=== PATIENT | female | born 1975 | race Caucasian/White ===

== ENCOUNTER → 2017-10-18 | Outpatient (CLI) | payer OTHER ==
--- NOTE | 2017-10-19 09:41 | USB ---
Reason for exam: clinical finding. History: Family history of breast cancer in maternal grandmother. Took hormonal contraceptives for 2 years. Indicated problem(s): palpable abnormality and pain in the left breast. Physical Findings: Nurse Summary: 2 x 2cm lump in the left breast at 2 o'clock (nurse cw). US Breast LT Left breast ultrasound includes all four quadrants, the retroareolar region and axilla. Finding demonstrates a 1.9 x 1.1 x 1.9cm oval, mixed lesion at 2 o'clock. This is echogenic with central cystic component. The patient reports noticing this 2 weeks ago. There is associated bruising and the visible swelling has decreased per the patient. This is suspected to represent a hematoma. These results were verbally communicated with the patient and result sheet given to the patient on 10/18/17. ASSESSMENT: Incomplete: need additional imaging evaluation, BI-RAD 0 RECOMMENDATION: Special view mammogram of both breasts.
--- NOTE | 2017-10-19 09:46 | MM ---
Reason for exam: clinical finding. Baseline mammogram. History: Family history of breast cancer in maternal grandmother. Took hormonal contraceptives for 2 years. Indicated problem(s): palpable abnormality in the left breast. [facility] Diagnostic Mammo w CAD KIESHA Bilateral CC and MLO view(s) were taken. LM, CC with magnification, and LM with magnification view(s) were taken of the left breast. The breast tissue is heterogeneously dense. This may lower the sensitivity of mammography. 1.6 heterogeneous density mass upper outer quadrant at the palpable site should be reassessed in 3 months as a hematoma is suspected. Lateral views confirms loosely grouped calcifications upper outer quadrant that project on top of each other on the CC view. These results were verbally communicated with the patient and result sheet given to the patient on 10/18/17. ASSESSMENT: Probably benign, BI-RAD 3 RECOMMENDATION: Follow-up diagnostic mammogram and ultrasound of the left breast in 3 months.
== END | disposition home or self-care (01) ==
LOC: RADUSWWP 08:51
PROVIDERS: ATTEND Family Medicine
DX: R92.8 Other abnormal and inconclusive findings on diagnostic imaging of breast (principal)
CPT/HCPCS: 77066

== ENCOUNTER 2019-05-21 12:28 | Inpatient (IN) | payer OTHER ==
[2019-05-21] MEDS ORDERED: THIAMINE 100 MG/ML 2 ML VIAL IM STA (13:16)
[2019-05-21] MEDS ORDERED: SODIUM CHLORIDE 0.9% 500 ML 500 ML IV STA (13:16)
[2019-05-21] MEDS ORDERED: LORazepam 2 MG/ML INJ IV STA (13:16)
[2019-05-21] MEDS ORDERED: LORazepam 2 MG/ML INJ IV PRN (13:16)
[2019-05-21] MEDS ORDERED: SODIUM CHLORIDE 0.9% 1,000 ML IV STA ×2 (13:16)
[2019-05-21] MEDS ORDERED: ONDANSETRON 4 MG/2 ML VIAL IVP STA (13:18)
[2019-05-21] MEDS ORDERED: PANTOPRAZOLE 40 MG/10 ML VIAL IVP STA (13:18)
[2019-05-21] MEDS ORDERED: ONDANSETRON 4 MG/2 ML VIAL IVP PRN (13:18)
--- NOTE | 2019-05-21 13:20 | ED ---
Alcohol HPI - General Chief Complaint: Alcohol Stated Complaint: Alcohol withdrawal Time Seen by Provider: 05/21/19 13:02 Source: patient, family, RN notes reviewed, old records reviewed Mode of arrival: wheelchair Limitations: no limitations - History of Present Illness Initial Comments: This is a 43-year-old female the ER for evaluation. Patient resents today for evaluation regarding tremors concern for alcohol withdrawal turning yellow. Patient starting 2 days ago as her skin she noticed was turning yellow. Patient is not stop shaking for a long period of time and a long time. Denies any nausea vomiting denies any chest pain or shortness of breath. No abdominal pain. Last drink was earlier today. MD Complaint: alcohol intoxication, alcohol withdrawal, alcohol dependence Last Drink: just [employer] -: days(s) Previous Visits for Alcohol Intoxication?: No Recent Trauma: No Associated Symptoms: nausea, diaphoresis, tremors Treatments Prior to Arrival: none Chronic Alcohol Use: Yes - Related Data Home Medications Medication Instructions Recorded Confirmed No Known Home Medications 05/21/19 05/21/19 Allergies Allergy/AdvReac Type Severity Reaction Status Date / Time No Known Allergies Allergy Verified 05/21/19 13:29 Review of Systems ROS Statement: Those systems with pertinent positive or pertinent negative responses have been documented in the HPI. ROS Other: All systems not noted in ROS Statement are negative. Past Medical History Past Medical History: Pneumonia Additional Past Medical History / Comment(s): kidney stones History of Any Multi-Drug Resistant Organisms: None Reported Past Surgical History: Tubal Ligation Past Psychological History: Depression Smoking Status: Current every day smoker Past Alcohol Use History: Abuse, Daily, Heavy Past Drug Use History: None Reported General Exam - General Exam Comments Initial Comments: Significant for body tremors Limitations: no limitations General appearance: alert, anxious, in distress Head exam: Present: atraumatic, normocephalic, normal inspection Eye exam: Present: normal appearance, PERRL, EOMI. Absent: scleral icterus, conjunctival injection, periorbital swelling ENT exam: Present: normal exam, normal oropharynx, mucous membranes dry Neck exam: Present: normal inspection. Absent: tenderness, meningismus, lymphadenopathy Respiratory exam: Present: normal lung sounds bilaterally. Absent: respiratory distress, wheezes, rales, rhonchi, stridor Cardiovascular Exam: Present: normal rhythm, tachycardia, normal heart sounds. Absent: systolic murmur, diastolic murmur, rubs, gallop, clicks GI/Abdominal exam: Present: soft, normal bowel sounds. Absent: distended, tenderness, guarding, rebound, rigid Extremities exam: Present: normal inspection, full ROM, normal capillary refill. Absent: tenderness, pedal edema, joint swelling, calf tenderness Back exam: Present: normal inspection Neurological exam: Present: alert, oriented X3, CN II-XII intact Psychiatric exam: Present: normal affect, normal mood Skin exam: Present: warm, dry, intact, normal color. Absent: rash Course Vital Signs 05/21/19 12:50 Temperature 97.9 F Pulse Rate 90 Respiratory 18 Rate Blood Pressure 162/69 O2 Sat by Pulse 98 Oximetry - Reevaluation(s) Reevaluation #1: 05/21/19 14:27 Medical records reviewed Reevaluation #2: 05/21/19 14:27 Patient is improved with Ativan Medical Decision Making - Medical Decision Making 33 female the ER for evaluation of alcohol withdrawal DTs hyperbilirubinemia bilirubin of 11, multiple electrode arrangements. We will admit for evaluation treatment - Lab Data Result diagrams: 05/21/19 13:31 05/21/19 13:31 Lab Results 05/21/19 05/21/19 05/21/19 Range/Units 13:31 13:31 13:31 WBC 4.7 (3.8-10.6) k/uL RBC 2.77 L (3.80-5.40) m/uL Hgb 8.8 L (11.4-16.0) gm/dL Hct 27.9 L (34.0-46.0) % MCV 100.4 H (80.0-100.0) fL MCH 31.9 (25.0-35.0) pg MCHC 31.7 (31.0-37.0) g/dL RDW 19.0 H (11.5-15.5) % Plt Count 39 L (150-450) k/uL Neutrophils % 67 % Lymphocytes % 20 % Monocytes % 6 % Eosinophils % 4 % Basophils % 1 % Neutrophils # 3.1 (1.3-7.7) k/uL Lymphocytes # 0.9 L (1.0-4.8) k/uL Monocytes # 0.3 (0-1.0) k/uL Eosinophils # 0.2 (0-0.7) k/uL Basophils # 0.0 (0-0.2) k/uL Differential Comment Manual Slide Review Performed Hypochromasia Marked Poikilocytosis (manual Present Anisocytosis Slight Macrocytosis Slight Fragmented RBCs Present PT 15.0 H (9.0-12.0) sec INR 1.5 H (<1.2) Sodium 139 (137-145) mmol/L Potassium 3.2 L (3.5-5.1) mmol/L Chloride 103 (98-107) mmol/L Carbon Dioxide 24 (22-30) mmol/L Anion Gap 12 mmol/L BUN 6 L (7-17) mg/dL Creatinine 0.44 L (0.52-1.04) mg/dL Est GFR (CKD-EPI)AfAm >90 (>60 ml/min/1.73 sqM) Est GFR (CKD-EPI)NonAf >90 (>60 ml/min/1.73 sqM) Glucose 115 H (74-99) mg/dL Calcium 8.4 (8.4-10.2) mg/dL Phosphorus 3.5 (2.5-4.5) mg/dL Magnesium 1.2 L (1.6-2.3) mg/dL Total Bilirubin 11.0 H (0.2-1.3) mg/dL AST 177 H (14-36) U/L ALT 51 (9-52) U/L Alkaline Phosphatase 238 H (38-126) U/L Total Protein 6.9 (6.3-8.2) g/dL Albumin 3.5 (3.5-5.0) g/dL Lipase 246 (23-300) U/L Serum Alcohol <10 mg/dL Disposition Clinical Impression: Alcohol withdrawal syndrome, Alcoholic intoxication, Alcohol withdrawal delirium, Hypomagnesemia, Hypokalemia, Cirrhosis, Hyperbilirubinemia Disposition: ADMITTED IP TO THIS HOSP Condition: Serious Is patient prescribed a controlled substance at d/c from ED?: No Referrals: Kevin Gordon MD [Primary Care Provider] - 1-2 days
[2019-05-21 13:49] LABS: Anisocytosis Slight; Basophils % (A) 1 %; Eosinophils # (A) 0.2 k/uL (0-0.7); Eosinophils % (A) 4 %; HCT 27.9 % (34.0-46.0); HGB 8.8 gm/dL (11.4-16.0); Hypochromasia Marked; Lymphocytes # (A) 0.9 k/uL (1.0-4.8); Lymphocytes % (A) 20 %; MCH 31.9 pg (25.0-35.0); MCHC 31.7 g/dL (31.0-37.0); MCV 100.4 fL (80.0-100.0); Macrocytosis Slight; Mean Platelet Volume 10.5; Monocytes # (A) 0.3 k/uL (0-1.0); Monocytes % (A) 6 %; Neutrophils # (A) 3.1 k/uL (1.3-7.7); Neutrophils % (A) 67 %; RBC 2.77 m/uL (3.80-5.40); WBC 4.7 k/uL (3.8-10.6)
[2019-05-21 14:01] LABS: INR 1.5 (<1.2)
[2019-05-21 14:07] LABS: ALT 51 U/L (9-52); AST 177 U/L (14-36); African American GFR (CKD) >90 (>60 ml/min/1.73 sqM); Albumin 3.5 g/dL (3.5-5.0); Alcohol <10 mg/dL; Alkaline Phosphatase 238 U/L (38-126); Anion Gap 12 mmol/L; Blood Urea Nitrogen 6 mg/dL (7-17); Calcium 8.4 mg/dL (8.4-10.2); Carbon Dioxide 24 mmol/L (22-30); Chloride 103 mmol/L (98-107); Glucose 115 mg/dL (74-99); Magnesium 1.2 mg/dL (1.6-2.3); Phosphorus 3.5 mg/dL (2.5-4.5); Potassium 3.2 mmol/L (3.5-5.1); Sodium 139 mmol/L (137-145); Total Protein 6.9 g/dL (6.3-8.2)
[2019-05-21 14:11] LABS: Platelet Count 39 k/uL (150-450); Poikilocytosis (M) Present; RBC Fragments Present
[2019-05-21] MEDS ORDERED: SODIUM CHLORIDE 0.9% 1,000 ML IV ONE (14:25)
[2019-05-21] MEDS: LORazepam 2 MG/ML INJ IV PRN ×4 (14:49→21:49)
[2019-05-21 15:25] LABS: Amorphous Sediment,Urine Rare /hpf; Appearance,Urine Cloudy (Clear); Bilirubin,Urine 1+ (Negative); Blood,Urine Large (Negative); Color,Urine Dark Brown; Glucose,Urine (UA) Negative (Negative); Ketones,Urine 1+ (Negative); Leukocyte Esterase,Urine Small (Negative); Mucus,Urine Moderate /hpf; Nitrite,Urine Negative (Negative); Protein,Urine 2+ (Negative); RBC,Urine 87 /hpf (0-5); Specific Gravity,Urine 1.019 (1.001-1.035); Squamous Epithelial Cell,Urine 7 /hpf (0-4); WBC,Urine 15 /hpf (0-5)
[2019-05-21 15:31] LABS: Amphetamine Screen,Urine Not Detected (NotDetected); Barbiturate Screen,Urine Not Detected (NotDetected); Benzodiazepines Screen,Urine Detected (NotDetected); Cocaine Screen,Urine Not Detected (NotDetected); Methadone Screen, Urine Not Detected (NotDetected); Opiate Screen,Urine Not Detected (NotDetected); Oxycodone Screen, Urine Not Detected (NotDetected); Phencyclidine Screen,Urine Not Detected (NotDetected); Tricyclic Antidepressant,Urine Not Detected (NotDetected); Urn Cannabinoid Scrn Not Detected (NotDetected)
[2019-05-21] MEDS: THIAMINE 100 MG TAB PO SCH (19:33)
[2019-05-21] MEDS: NICOTINE 21MG/24HR PATCH TRANSDERM SCH (19:34)
[2019-05-21] MEDS ORDERED: Potassium Replacement Protocol 1 EACH MISC MISCELLANE PRN (20:13)
[2019-05-21] MEDS: PERMETHRIN 5% CREAM 60 GM TUBE TOPICAL SCH (21:12)
[2019-05-21] MEDS: POTASSIUM CHLORIDE ER 20 MEQ TAB.ER PO SCH ×2 (21:12→23:03)
[2019-05-21] MEDS: CLOBETASOL PROP 0.05% CR 15GM TOPICAL SCH (21:12)
[2019-05-21] MEDS: MAGNESIUM SULFATE-D5W PMX 1 GM in DEXTROSE/WATER 1 100ML.BAG IVPB SCH ×2 (21:49→23:04)
--- NOTE | 2019-05-21 22:09 | HP ---
HISTORY AND PHYSICAL This is a 43-year-old female admitted for severe tremors due to alcohol withdrawal and jaundice worsening. She has been drinking alcohol for 20 years, about a pint a day of heavy whiskey. She has been taking high doses of Benadryl at home, 5 times a day, for severe pruritus. She is coming in for turning yellow, was seen in the office 2 days ago. Her bilirubin was fine; currently it is up to 11. No nausea, vomiting, shortness of breath, abdominal distention. She drank alcohol earlier today. She was recently given for alcohol withdrawal at home but continued to drink. The patient is going through severe alcohol withdrawal at this point. She states she had a liver biopsy sometime in the past, about a year or two ago; has not followed up in a year. MEDICINES: Negative except for recent Librium which she recently filled. ALLERGIES: Negative. REVIEW OF SYSTEMS: Fourteen-point review of systems negative except for mentioned in HPI. PAST MEDICAL HISTORY: 1. Pneumonia. 2. Kidney stones. 3. Tubal ligation. 4. History of depression. 5. Current everyday smoker. 6. Heavy alcohol abuse. PHYSICAL EXAMINATION: Vital signs reviewed. Temperature 97.9, pulse 85 to 90, respiratory rate 22, blood pressure 162/69, oxygen 98% on room air. NEUROLOGIC: Large amount of tremors in extremities, arms and legs. PSYCH: Fair mood and affect. CARDIOVASCULAR: S1, S2. LUNGS: Clear. GI: Distended. Obesity. Possible fluid wave. Normal bowel sounds. INTEGUMENT: Red rash on her lower right leg, for which she recently took some cortisone cream just in the last 2 days. ASSESSMENT: 1. Alcohol withdrawal syndrome. 2. Liver failure. 3. Hyperbilirubinemia of severe nature. 4. Pruritus secondary to elevated liver enzymes. 5. Elevated INR secondary to liver failure. 6. Severe anemia; unclear etiology; possibly secondary to alcohol. 7. Thrombocytopenia secondary to alcohol abuse. Await GI consultation. 8. Hypomagnesemia. Replace magnesium. 9. Alcohol withdrawal and alcohol severe tremors. CIWA protocol will be continued. 10.Elevated liver enzymes secondary to liver failure and cirrhosis. 11.Alcohol intoxication, alcohol withdrawal, delirium, alcohol withdrawal symptoms. 12.Hypokalemia. 13.Cirrhosis. Please see further orders. MMODL / IJN: [id number] /
[2019-05-22] MEDS: PANTOPRAZOLE 40 MG/10 ML VIAL IVP SCH (08:01)
[2019-05-22] MEDS: NICOTINE 21MG/24HR PATCH TRANSDERM SCH (08:01)
[2019-05-22] MEDS: predniSONE 5 MG TAB PO SCH (08:01)
[2019-05-22] MEDS: predniSONE 1 MG TAB PO SCH (08:01)
[2019-05-22] MEDS: MULTIVITAMINS, THERA 1 EACH TAB PO SCH (08:01)
[2019-05-22] MEDS: THIAMINE 100 MG TAB PO SCH ×2 (08:01→16:52)
[2019-05-22] MEDS: LORazepam 2 MG/ML INJ IV PRN ×3 (08:04→18:33)
[2019-05-22] MEDS: CLOBETASOL PROP 0.05% CR 15GM TOPICAL SCH ×3 (08:10→21:50)
[2019-05-22] MEDS: PERMETHRIN 5% CREAM 60 GM TUBE TOPICAL SCH ×3 (08:10→21:50)
[2019-05-22 08:14] LABS: Anisocytosis Slight; Basophils % (A) 1 %; Eosinophils # (A) 0.2 k/uL (0-0.7); Eosinophils % (A) 5 %; HCT 24.5 % (34.0-46.0); HGB 7.6 gm/dL (11.4-16.0); Hypochromasia Marked; Lymphocytes # (A) 1.5 k/uL (1.0-4.8); Lymphocytes % (A) 31 %; MCHC 31.2 g/dL (31.0-37.0); MCV 102.7 fL (80.0-100.0); Macrocytosis Moderate; Mean Platelet Volume 10.1; Monocytes # (A) 0.3 k/uL (0-1.0); Monocytes % (A) 6 %; Neutrophils # (A) 2.7 k/uL (1.3-7.7); Neutrophils % (A) 55 %; RBC 2.39 m/uL (3.80-5.40); RDW 18.9 % (11.5-15.5); WBC 4.9 k/uL (3.8-10.6)
[2019-05-22 08:18] LABS: Platelet Count 41 k/uL (150-450)
[2019-05-22 08:27] LABS: ALT 47 U/L (9-52); AST 128 U/L (14-36); African American GFR (CKD) >90 (>60 ml/min/1.73 sqM); Albumin 2.7 g/dL (3.5-5.0); Alkaline Phosphatase 164 U/L (38-126); Anion Gap 5 mmol/L; Blood Urea Nitrogen 6 mg/dL (7-17); Calcium 7.6 mg/dL (8.4-10.2); Carbon Dioxide 24 mmol/L (22-30); Chloride 108 mmol/L (98-107); Glucose 96 mg/dL (74-99); Magnesium 1.8 mg/dL (1.6-2.3); Sodium 137 mmol/L (137-145); Total Bilirubin 9.2 mg/dL (0.2-1.3); Total Protein 5.7 g/dL (6.3-8.2)
[2019-05-22] MEDS ORDERED: ENOXAPARIN 40 MG/0.4 ML SYRINGE SQ SCH (09:00)
[2019-05-22 10:02] LABS: INR 1.6 (<1.2); Prothrombin Time 16.1 sec (9.0-12.0)
[2019-05-22] MEDS ORDERED: PHYTONADIONE 5 MG in SODIUM CHLORIDE 0.9% 50 ML IVPB STA (13:34)
--- NOTE | 2019-05-22 13:40 | US ---
EXAMINATION TYPE: US abdomen complete DATE OF EXAM: 05/22/2019 COMPARISON: NONE CLINICAL HISTORY: cirrhosis/liver failure. cirrhosis, liver failure EXAM MEASUREMENTS: Liver Length: 14.9 cm Gallbladder Wall: 0.3 cm CBD: 0.6 cm Spleen: 12.3 cm Right Kidney: 13.2 x 4.1 x 5.6 cm Left Kidney: 12.0 x 5.6 x 5.5 cm Pancreas: Tail obscured by overlying bowel gas Liver: portal vein appears hepatopetal Gallbladder: no evidence of stones Evidence for sonographic Strauss's sign: no CBD: appears wnl Spleen: wnl Right Kidney: enlarged, no evidence of hydronephrosis Left Kidney: no evidence of hydronephrosis , There is some lobation. Column of Giovani may be present. Upper IVC: wnl Abd Aorta: wnl IMPRESSION: 1. No suspicious acute abdomen ultrasound abnormality
--- NOTE | 2019-05-22 13:51 | P.PN ---
Subjective Progress Note Date: 05/22/19 This is a 43-year-old female admitted with alcohol withdrawal, DTs, liver failure and multiple other medical issues. Maintained on gentle IV fluid hydration. CIWA scale 11, continues on CIWA protocol. Tremors present. Nurse reports patient is currently a 2 person assist upon standing. Diet intake poor .Vital signs stable, maintaining O2 sats in the 90s on room air. Afebrile, normal WBC. T bili decreased to 9.2, LFTs improving, INR 1.6, ammonia increasing up 51. Lactulose initiated. GI and psych consults in place with recommendations pending. Abdominal ultrasound completed with results pending. Objective - Vital Signs Vital signs: Vital Signs Temp 98.5 F 05/22/19 12:05 Pulse 84 05/22/19 12:05 Resp 16 05/22/19 12:05 BP 129/70 05/22/19 12:05 Pulse Ox 93 L 05/22/19 12:05 Intake & Output 05/21/19 05/22/19 05/22/19 18:59 06:59 18:59 Intake Total 1880 Balance 1880 Weight 75.75 kg Intake: Intake, IV Titration 1400 Amount Magnesium Sulfate-D5w Pmx 200 1 gm In Dextrose/Water 1 100ml.bag @ 100 mls/hr IVPB Q1H NEHEMIAS Rx#: [id number] Sodium Chloride 0.9% 1, 1200 000 ml @ 100 mls/hr IV . Q10H ONE Rx#:[id number] Oral 480 Other: Voiding Method Toilet Bedside Commode Bedside Commode # Voids 3 - Exam PHYSICAL EXAM: VITAL SIGNS: [As above] GENERAL: Lying in bed, no acute distress HEENT: Conjunctivae normal. eyes normal. NECK: No JVD. No thyroid enlargement. No LNs CARDIOVASCULAR: S1, S2 regular.. No murmur RESPIRATION: Breath sounds diminished in the bases. No rhonchi or crackles. No bronchial breathing. ABDOMEN: Soft, distended, possible ascites, nontender . No guarding. no masses palpable.Bowel sounds heard. LEGS: No edema. no swelling PSYCHIATRY: Alert and oriented X3, mood and affect normal. NERVOUS SYSTEM: Cranial N 2-12 grossly normal. Moves all 4 limbs. Diffuse weakness No focal deficits. Tremors present in her arms and legs Skin: no lesions, lower right leg rash improving Lymphatic system. No LN neck axilla or groin. - Labs CBC & Chem 7: 05/22/19 07:44 05/22/19 07:44 Labs: Abnormal Lab Results - Last 24 Hours (Table) 05/21/19 05/21/19 05/21/19 Range/Units 13:31 13:31 13:31 RBC 2.77 L (3.80-5.40) m/uL Hgb 8.8 L (11.4-16.0) gm/dL Hct 27.9 L (34.0-46.0) % MCV 100.4 H (80.0-100.0) fL RDW 19.0 H (11.5-15.5) % Plt Count 39 L (150-450) k/uL Lymphocytes # 0.9 L (1.0-4.8) k/uL PT 15.0 H (9.0-12.0) sec INR 1.5 H (<1.2) Potassium 3.2 L (3.5-5.1) mmol/L Chloride (98-107) mmol/L BUN 6 L (7-17) mg/dL Creatinine 0.44 L (0.52-1.04) mg/dL Glucose 115 H (74-99) mg/dL Calcium (8.4-10.2) mg/dL Magnesium 1.2 L (1.6-2.3) mg/dL Total Bilirubin 11.0 H (0.2-1.3) mg/dL AST 177 H (14-36) U/L Alkaline Phosphatase 238 H (38-126) U/L Ammonia (<30) umol/L Total Protein (6.3-8.2) g/dL Albumin (3.5-5.0) g/dL Urine Appearance (Clear) Urine Protein (Negative) Urine Ketones (Negative) Urine Blood (Negative) Urine Bilirubin (Negative) Ur Leukocyte Esterase (Negative) Urine RBC (0-5) /hpf Urine WBC (0-5) /hpf Ur Squamous Epith Cells (0-4) /hpf Amorphous Sediment (None) /hpf Urine Mucus (None) /hpf U Benzodiazepines Scrn (NotDetected) 05/21/19 05/22/19 05/22/19 Range/Units 15:15 07:44 07:44 RBC 2.39 L (3.80-5.40) m/uL Hgb 7.6 L (11.4-16.0) gm/dL Hct 24.5 L (34.0-46.0) % MCV 102.7 H (80.0-100.0) fL RDW 18.9 H (11.5-15.5) % Plt Count 41 L (150-450) k/uL Lymphocytes # (1.0-4.8) k/uL PT (9.0-12.0) sec INR (<1.2) Potassium (3.5-5.1) mmol/L Chloride 108 H (98-107) mmol/L BUN 6 L (7-17) mg/dL Creatinine 0.45 L (0.52-1.04) mg/dL Glucose (74-99) mg/dL Calcium 7.6 L (8.4-10.2) mg/dL Magnesium (1.6-2.3) mg/dL Total Bilirubin 9.2 H (0.2-1.3) mg/dL AST 128 H (14-36) U/L Alkaline Phosphatase 164 H (38-126) U/L Ammonia (<30) umol/L Total Protein 5.7 L (6.3-8.2) g/dL Albumin 2.7 L (3.5-5.0) g/dL Urine Appearance Cloudy H (Clear) Urine Protein 2+ H (Negative) Urine Ketones 1+ H (Negative) Urine Blood Large H (Negative) Urine Bilirubin 1+ H (Negative) Ur Leukocyte Esterase Small H (Negative) Urine RBC 87 H (0-5) /hpf Urine WBC 15 H (0-5) /hpf Ur Squamous Epith Cells 7 H (0-4) /hpf Amorphous Sediment Rare H (None) /hpf Urine Mucus Moderate H (None) /hpf U Benzodiazepines Scrn Detected H (NotDetected) 05/22/19 05/22/19 Range/Units 09:50 09:50 RBC (3.80-5.40) m/uL Hgb (11.4-16.0) gm/dL Hct (34.0-46.0) % MCV (80.0-100.0) fL RDW (11.5-15.5) % Plt Count (150-450) k/uL Lymphocytes # (1.0-4.8) k/uL PT 16.1 H (9.0-12.0) sec INR 1.6 H (<1.2) Potassium (3.5-5.1) mmol/L Chloride (98-107) mmol/L BUN (7-17) mg/dL Creatinine (0.52-1.04) mg/dL Glucose (74-99) mg/dL Calcium (8.4-10.2) mg/dL Magnesium (1.6-2.3) mg/dL Total Bilirubin (0.2-1.3) mg/dL AST (14-36) U/L Alkaline Phosphatase (38-126) U/L Ammonia 51 H (<30) umol/L Total Protein (6.3-8.2) g/dL Albumin (3.5-5.0) g/dL Urine Appearance (Clear) Urine Protein (Negative) Urine Ketones (Negative) Urine Blood (Negative) Urine Bilirubin (Negative) Ur Leukocyte Esterase (Negative) Urine RBC (0-5) /hpf Urine WBC (0-5) /hpf Ur Squamous Epith Cells (0-4) /hpf Amorphous Sediment (None) /hpf Urine Mucus (None) /hpf U Benzodiazepines Scrn (NotDetected) Assessment and Plan Assessment: -Acute alcohol withdrawal syndrome with active DTs, in a patient with alcohol dependence. -Liver failure, cirrhosis -Elevated LFTs, T bili secondary to above -HyperCoagulopathy secondary to the above -Anemia, possibly of chronic disease, secondary to the above -Severe hyperbilirubinemia -Pruritus secondary to elevated LFTs -Thrombocytopenia secondary to alcohol abuse -Hyperammonemia secondary to alcohol abuse -Obesity, BMI 20.6 -Nicotine dependence Plan: Continue current medication regime ,monitoring and symptomatic treatment. Maintain IV fluid hydration. Ensure supplements ordered. Continue on CIWA protocol. Close monitoring of ammonia levels, lactulose initiated. Close monitoring of LFTs, T bili, electrolytes, coags, with repeat labs ordered for a.m. GI ,psych, hematology consult in place, recommendations pending. Abdominal ultrasound results pending. PT/OT. Further recommendations to follow. The impression and plan of care has been dictated as directed. : I performed a history and examination of this patient, discussed the same with the dictator. I agree with the dictator's note ,documented as a scribe. Any additional findings or plans will be noted.
[2019-05-22] MEDS: SODIUM CHLORIDE 0.9% 1,000 ML IV SCH (14:39)
[2019-05-22] MEDS: LACTULOSE 20 GM/30 ML CUP PO SCH ×3 (14:39→21:50)
--- NOTE | 2019-05-22 14:53 | P.CN ---
Psychiatric Consult - . Consult date: 05/22/19 Consult:: 05/22/19 14:36 IDENTIFYING DATA: This patient is a 43-year-old female who lives at home with her and 4 kids, currently unemployed. HISTORY OF PRESENT ILLNESS: The patient was admitted to the hospital 2 days ago for alcohol detox, tremors and DTs monitoring. When patient presented to the hospital she complained of becoming jaundiced for the past 2 days and states that she has been drinking heavily. Patient's blood alcohol level was less than 10, her LFTs were elevated and total bilirubin was 11.0 on admission. Psychiatry was consult it for assistance with alcohol use disorder treatment. Sub Assembly Team Worker sat at bedside with patient this afternoon and patient was agreeable to be interviewed. Patient states that she has struggled with alcohol use for many years. She states that she had one previous episode similar to this when she turned jaundice 4 years ago due to alcohol binges. Patient claims that for the past 4 months now she has been drinking approximately 1 pint of whiskey per day. Patient claims that she is also developing skin rashes on her legs. She states that she previously had a liver biopsy which showed fatty infiltration of her liver. Patient spoke about stressors at home including one of her daughter which ran away approximately 2 years ago with one of her boyfriends. She also spoke about losing the house that she was renting and as she was trying to buy it off the landlord, the landlord rejected their offer and patient and her family had to stay in a hotel. Patient states that now they did buy a house. Patient claims that she has not had any other problems related to alcohol use besides damage to her liver. She denies any physical abuse at home denies any prisons/senior care/legal troubles. She denies any previous DUIs. Patient denies any treatments which she has undergone for alcohol use claims she has never been to rehab or wants to go or has ever tried medications to help her with her cravings. Patient states that she does have current symptoms of shaking in her hands which have gradually improved however denies any visual hallucinations or confusion since being in the hospital. Patient denies any problems with her mood or anxiety. She states she sleeps and eats well. At this time patient denies any suicidal or homical ideations, intent or plan. Patient denies any auditory, visual hallucinations and denies any paranoia or delusions. Patient denies any other drug use at this time including marijuana. She claims that she does smoke approximately 6 cigarettes a day. PAST PSYCHIATRIC HISTORY: Denies any previous psychiatric contacts, denies any hospitalizations on psych. She denies being on any psychiatric medication in the past and denies any suicide attempts in the past.. PAST MEDICAL HISTORY: Acute liver injury. ALLERGIES: No known drug allergies. CHEMICAL DEPENDENCY HISTORY: As per HPI. FAMILY PSYCHIATRIC HISTORY: Denies FAMILY CHEMICAL DEPENDENCY HISTORY:Claims her mother abused alcohol. SOCIAL HISTORY: Patient claims she grew up in [place] and has moved to different places around [place]. 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 Patient currently lives in her house with 4 kids and her . MENTAL STATUS EXAM: General Appearance: Patient appears to be stated age is alert, pleasant, and cooperative. Patient appears to be jaundiced. Behavior: Patient is lying down on hospital bed in hospital gown, no agitation was cooperative. Speech: Patient's speech is fluent and nonpressured. Mood/Affect: Patient reports their mood is "fine", affect is congruent Suicidality/Homicidality: Patient denies having any suicidal or homicidal ideation intent or plan. Perceptions: Patient denies any auditory or visual hallucinations. Though content/process: There is no evidence of any delusional thought content and thought process is linear and goal-directed. Memory and concentration: AOX3, grossly intact for the purposes of this session. Can spell "WORLD" backwards Judgment and insight: Superficial IMPRESSIONS: Alcohol use disorder, moderate-severe currently in alcohol withdrawal. Nicotine dependence PLAN: -At this time patient patient does NOT meet criteria for inpatient psychiatric admission. -Continue with CIWA, monitoring for DTs. -Continue with thiamine, folic acid and multivitamin supplementation. -Would recommend the following medication changes/additions: Acamprosate to be started at 333 mg 3 times a day which is to be increased tomorrow to a maintenance dose of 666 mg 3 times for alcohol use/cravings. This in my opinion is the best medication for her due to her extensive liver injury. Once liver injury has completely recovered then patient can be switched onto naltrexone if she pleases however this can be done as an outpatient. -Discussed with patient in great length about the effects of alcohol on her physical and mental health, patient agreed and appeared to be somewhat interested in substance use treatment. When offered inpatient substance use rehab, patient claimed that she would prefer outpatient treatment as she could not be away from her family. Patient claims that she could go to AA meetings and possibly outpatient counseling. loft worker apprentice to give patient information for meetings and connection with outpatient counseling for substance use. -Psychiatry will sign off at this point Thank you for the consult 05/22/19 14:38
[2019-05-22] MEDS: ACAMPROSATE CALCIUM 333 MG TABLET.DR PO SCH ×2 (16:53→21:49)
--- NOTE | 2019-05-22 17:07 | P.CONS ---
History of Present Illness - Reason for Consult Consult date: 05/22/19 bicytopenia Requesting physician: Kevin Gordon - Chief Complaint jaundice, ETOH withdraw - History of Present Illness Pt is a very pleasant female who we have been asked to see for bicytopenia. She denies a history of low labs or being anemia, she has had heavy menses all her life, she states heavy ETOH use. She has a rash on her lower extremities R>L has had biopsied, did not remember results, she has been treated with topical steroids and abx. Denies recent illness, fever, she had a mammogram for right breast mass in the past, biopsy was benign. No personal history of malignancy. Materal side has at least 3 women with breast cancer, unsure of age of diagnosis Review of Systems 14 point ROS is negative except as stated in HPI Past Medical History Past Medical History: Asthma, Pneumonia Additional Past Medical History / Comment(s): Slight jaundice about 5 yrs ago, pneumonia as a child, bronchitis, gastric ulcer, nephrolithiasis-passed stone on her own, UTI, currently being treated for cellulitis R lower leg and pt/family state she has other areas with skin issues, currently has lump R arm and R breast, R hip "pops" out occasionally. History of Any Multi-Drug Resistant Organisms: None Reported Past Surgical History: Tubal Ligation Additional Past Surgical History / Comment(s): EGD Past Anesthesia/Blood Transfusion Reactions: No Reported Reaction Smoking Status: Current every day smoker - Past Family History Father History Unknown: Yes Mother Family Medical History: Hypertension Medications and Allergies Home Medications Medication Instructions Recorded Confirmed Type Clobetasol Propionate [Temovate 0.05 cream TOPICAL TID 05/21/19 05/21/19 History 0.05% Cream] Permethrin 5% Cream [Elimite] 5 cream TOPICAL TID 05/21/19 05/21/19 History diphenhydrAMINE HCL [Benadryl] 25 mg PO 5XD 05/21/19 05/21/19 History predniSONE 1 mg PO DAILY 05/21/19 05/21/19 History predniSONE 5 mg PO QAM 05/21/19 05/21/19 History Allergies Allergy/AdvReac Type Severity Reaction Status Date / Time No Known Allergies Allergy Verified 05/21/19 13:29 Physical Exam Vitals: Vital Signs Temp Pulse Pulse Pulse Resp BP BP 05/22/19 12:05 98.5 F 84 16 129/70 05/22/19 08:00 86 86 16 05/22/19 05:00 98.4 F 86 16 144/76 05/21/19 21:16 98.3 F 86 16 134/73 05/21/19 16:22 98 F 93 17 137/73 05/21/19 15:30 83 19 139/63 Pulse Ox 05/22/19 12:05 93 L 05/22/19 08:00 05/22/19 05:00 97 05/21/19 21:16 96 05/21/19 16:22 97 05/21/19 15:30 98 Intake and Output 05/21/19 05/22/19 05/22/19 22:59 06:59 14:59 Intake Total 880 1000 Balance 880 1000 Intake: Intake, IV Titration 400 1000 Amount Magnesium Sulfate-D5w Pmx 200 1 gm In Dextrose/Water 1 100ml.bag @ 100 mls/hr IVPB Q1H NEHEMIAS Rx#: [id number] Sodium Chloride 0.9% 1, 400 800 000 ml @ 100 mls/hr IV . Q10H ONE Rx#:[id number] Oral 480 Other: Voiding Method Toilet Bedside Commode Bedside Commode # Voids 2 3 - Constitutional General appearance: cooperative, no acute distress - EENT Eyes: EOMI, scleral icterus ENT: hearing grossly normal, normal oropharynx - Neck Neck: no lymphadenopathy - Cardiovascular Rhythm: regular Heart sounds: normal: S1, S2 Abnormal Heart Sounds: no systolic murmur, no diastolic murmur, no rub, no S3 Gallop, no S4 Gallop, no click, no other - Gastrointestinal General gastrointestinal: normal bowel sounds, soft - Integumentary Integumentary: jaundiced - Neurologic generalized tremor noted Neurologic: CNII-XII intact - Musculoskeletal Musculoskeletal: strength equal bilaterally - Psychiatric Psychiatric: A&O x's 3, appropriate affect, intact judgment & insight Results CBC & Chem 7: 05/22/19 07:44 05/22/19 07:44 Labs: Abnormal Lab Results - Last 24 Hours (Table) 05/21/19 05/21/19 05/21/19 Range/Units 13:31 13:31 13:31 RBC 2.77 L (3.80-5.40) m/uL Hgb 8.8 L (11.4-16.0) gm/dL Hct 27.9 L (34.0-46.0) % MCV 100.4 H (80.0-100.0) fL RDW 19.0 H (11.5-15.5) % Plt Count 39 L (150-450) k/uL Lymphocytes # 0.9 L (1.0-4.8) k/uL PT 15.0 H (9.0-12.0) sec INR 1.5 H (<1.2) Potassium 3.2 L (3.5-5.1) mmol/L Chloride (98-107) mmol/L BUN 6 L (7-17) mg/dL Creatinine 0.44 L (0.52-1.04) mg/dL Glucose 115 H (74-99) mg/dL Calcium (8.4-10.2) mg/dL Magnesium 1.2 L (1.6-2.3) mg/dL Total Bilirubin 11.0 H (0.2-1.3) mg/dL AST 177 H (14-36) U/L Alkaline Phosphatase 238 H (38-126) U/L Ammonia (<30) umol/L Total Protein (6.3-8.2) g/dL Albumin (3.5-5.0) g/dL Urine Appearance (Clear) Urine Protein (Negative) Urine Ketones (Negative) Urine Blood (Negative) Urine Bilirubin (Negative) Ur Leukocyte Esterase (Negative) Urine RBC (0-5) /hpf Urine WBC (0-5) /hpf Ur Squamous Epith Cells (0-4) /hpf Amorphous Sediment (None) /hpf Urine Mucus (None) /hpf U Benzodiazepines Scrn (NotDetected) 05/21/19 05/22/19 05/22/19 Range/Units 15:15 07:44 07:44 RBC 2.39 L (3.80-5.40) m/uL Hgb 7.6 L (11.4-16.0) gm/dL Hct 24.5 L (34.0-46.0) % MCV 102.7 H (80.0-100.0) fL RDW 18.9 H (11.5-15.5) % Plt Count 41 L (150-450) k/uL Lymphocytes # (1.0-4.8) k/uL PT (9.0-12.0) sec INR (<1.2) Potassium (3.5-5.1) mmol/L Chloride 108 H (98-107) mmol/L BUN 6 L (7-17) mg/dL Creatinine 0.45 L (0.52-1.04) mg/dL Glucose (74-99) mg/dL Calcium 7.6 L (8.4-10.2) mg/dL Magnesium (1.6-2.3) mg/dL Total Bilirubin 9.2 H (0.2-1.3) mg/dL AST 128 H (14-36) U/L Alkaline Phosphatase 164 H (38-126) U/L Ammonia (<30) umol/L Total Protein 5.7 L (6.3-8.2) g/dL Albumin 2.7 L (3.5-5.0) g/dL Urine Appearance Cloudy H (Clear) Urine Protein 2+ H (Negative) Urine Ketones 1+ H (Negative) Urine Blood Large H (Negative) Urine Bilirubin 1+ H (Negative) Ur Leukocyte Esterase Small H (Negative) Urine RBC 87 H (0-5) /hpf Urine WBC 15 H (0-5) /hpf Ur Squamous Epith Cells 7 H (0-4) /hpf Amorphous Sediment Rare H (None) /hpf Urine Mucus Moderate H (None) /hpf U Benzodiazepines Scrn Detected H (NotDetected) 05/22/19 05/22/19 Range/Units 09:50 09:50 RBC (3.80-5.40) m/uL Hgb (11.4-16.0) gm/dL Hct (34.0-46.0) % MCV (80.0-100.0) fL RDW (11.5-15.5) % Plt Count (150-450) k/uL Lymphocytes # (1.0-4.8) k/uL PT 16.1 H (9.0-12.0) sec INR 1.6 H (<1.2) Potassium (3.5-5.1) mmol/L Chloride (98-107) mmol/L BUN (7-17) mg/dL Creatinine (0.52-1.04) mg/dL Glucose (74-99) mg/dL Calcium (8.4-10.2) mg/dL Magnesium (1.6-2.3) mg/dL Total Bilirubin (0.2-1.3) mg/dL AST (14-36) U/L Alkaline Phosphatase (38-126) U/L Ammonia 51 H (<30) umol/L Total Protein (6.3-8.2) g/dL Albumin (3.5-5.0) g/dL Urine Appearance (Clear) Urine Protein (Negative) Urine Ketones (Negative) Urine Blood (Negative) Urine Bilirubin (Negative) Ur Leukocyte Esterase (Negative) Urine RBC (0-5) /hpf Urine WBC (0-5) /hpf Ur Squamous Epith Cells (0-4) /hpf Amorphous Sediment (None) /hpf Urine Mucus (None) /hpf U Benzodiazepines Scrn (NotDetected) Assessment and Plan (1) Bicytopenia Narrative/Plan: Differentials include marrow suppression from ETOH exacerbated by acute illness, liver disease and vitamin deficiency. Multiple labs have been ordered for evaluation. Pending US of liver and spleen. No need for blood or platelet transfusion at this time. Current Visit: Yes Status: Acute Priority: High Code(s): D75.89 - OTHER SPECIFIED DISEASES OF BLOOD AND BLOOD-FORMING ORGANS SNOMED Code(s): 74335661
[2019-05-22 18:14] LABS: Iron Saturation 48.16 (12.00-45.00); Rheumatoid Factor 7 IU/mL (0-15)
--- NOTE | 2019-05-22 22:57 | P.CONS ---
History of Present Illness - Reason for Consult Consult date: 05/22/19 Elevated liver enzymes Requesting physician: Kevin Gordon - Chief Complaint Alcohol withdrawal, jaundice - History of Present Illness 43-year-old female with a medical history significant for alcohol abuse who presents to the hospital for concerned over alcohol withdrawal and jaundice. The patient reports a long-standing history of alcohol abuse and has been drinking steadily for at least the past 4 years. She reports that she drinks alcohol just stop from withdrawing. The patient reports prior episodes of lower extremity edema and possible GI bleeding but is unclear about the details. She denies ever requiring paracentesis in the past. She does report evaluation with liver biopsy 4 years ago which she states was negative for cirrhosis. She had noticed increased jaundice and dark-colored here prior to presentation. Laboratory evaluation significant for WBC 4.9, hemoglobin 7.6 from 8.8, platelet count 41,000, MCV 102.7, INR 1.6, total bilirubin 9.2, alkaline phosphatase 164, AST 128, ALTs 47 and ultrasound of the abdomen with no acute findings. Patient denies any signs or symptoms of GI bleeding. She reports a bowel movement after lactulose which was nonbloody and non-melanotic. Review of Systems REVIEW OF SYSTEMS: CONSTITUTIONAL: Denies any fevers, chills, weight change or fatigue. CARDIOVASCULAR: Denies any chest pain, palpitations high or low blood pressures RESPIRATORY: Denies any shortness of breath, hemoptysis or cough. GENITOURINARY: No dysuria or hematuria, reported dark colored urine. MUSCULOSKELETAL: No weakness reported. SKIN: Denies any new rashes or lesions, or pallor but does report jaundice. PSYCHIATRIC: Significant for alcohol abuse. NEUROLOGY: Denies headache, denies any new focal deficits. EARS/NOSE/THROAT: No recent hearing change, congestion, nasal discharge or sore throat. EYES: No pain in eyes, discharge or change in vision. GASTROINTESTINAL: As per HPI. Past Medical History Past Medical History: Asthma, Pneumonia Additional Past Medical History / Comment(s): Slight jaundice about 5 yrs ago, pneumonia as a child, bronchitis, gastric ulcer, nephrolithiasis-passed stone on her own, UTI, currently being treated for cellulitis R lower leg and pt/family state she has other areas with skin issues, currently has lump R arm and R breast, R hip "pops" out occasionally. History of Any Multi-Drug Resistant Organisms: None Reported Past Surgical History: Tubal Ligation Additional Past Surgical History / Comment(s): EGD Past Anesthesia/Blood Transfusion Reactions: No Reported Reaction Smoking Status: Current every day smoker - Past Family History Father History Unknown: Yes Mother Family Medical History: Hypertension Medications and Allergies Home Medications Medication Instructions Recorded Confirmed Type Clobetasol Propionate [Temovate 0.05 cream TOPICAL TID 05/21/19 05/21/19 History 0.05% Cream] Permethrin 5% Cream [Elimite] 5 cream TOPICAL TID 05/21/19 05/21/19 History diphenhydrAMINE HCL [Benadryl] 25 mg PO 5XD 05/21/19 05/21/19 History predniSONE 1 mg PO DAILY 05/21/19 05/21/19 History predniSONE 5 mg PO QAM 05/21/19 05/21/19 History Allergies Allergy/AdvReac Type Severity Reaction Status Date / Time No Known Allergies Allergy Verified 05/21/19 13:29 Physical Exam Vitals: Vital Signs Temp Pulse Pulse Resp BP Pulse Ox 05/22/19 19:45 98.1 F 88 18 131/78 96 05/22/19 12:05 98.5 F 84 16 129/70 93 L 05/22/19 08:00 86 86 16 05/22/19 05:00 98.4 F 86 16 144/76 97 Intake and Output 05/22/19 05/22/19 05/22/19 06:59 14:59 22:59 Intake Total 1000 850 Balance 1000 850 Intake: Intake, IV Titration 1000 850 Amount Magnesium Sulfate-D5w Pmx 200 1 gm In Dextrose/Water 1 100ml.bag @ 100 mls/hr IVPB Q1H [facility]MI[facility] Rx#: [id number] Phytonadione 5 mg In 50 Sodium Chloride 0.9% 50 ml @ 100 mls/hr IVPB ONCE STA Rx#:[id number] Sodium Chloride 0.9% 1, 800 800 000 ml @ 100 mls/hr IV . Q10H ONE Rx#:[id number] Other: Voiding Method Bedside Commode Bedside Commode Bedside Commode # Voids 3 5 On physical examination, patient appears comfortable in no apparent distress. HEAD: Normocephalic, atraumatic. EYES: Scleral icterus. No conjunctival injection. MOUTH: No lesions, tongue midline. NECK: Trachea midline, no gross abnormalities. CHEST: Clear to auscultation with no wheezing or rhonchi appreciated. HEART: Regular rate and rhythm. ABDOMEN: Soft, mildly tender. Bowel sounds are positive. No organomegaly. No guarding or rigidity. EXTREMITIES: No pedal edema. SKIN: No rashes, jaundice. NEUROLOGIC: Alert and oriented x3, tremors appreciated but no asterixis. No focal deficits. Results CBC & Chem 7: 05/22/19 07:44 05/22/19 07:44 Labs: Abnormal Lab Results - Last 24 Hours (Table) 05/22/19 05/22/19 05/22/19 Range/Units 07:44 07:44 07:44 RBC 2.39 L (3.80-5.40) m/uL Hgb 7.6 L (11.4-16.0) gm/dL Hct 24.5 L (34.0-46.0) % MCV 102.7 H (80.0-100.0) fL RDW 18.9 H (11.5-15.5) % Plt Count 41 L (150-450) k/uL PT (9.0-12.0) sec INR (<1.2) Chloride 108 H (98-107) mmol/L BUN 6 L (7-17) mg/dL Creatinine 0.45 L (0.52-1.04) mg/dL Calcium 7.6 L (8.4-10.2) mg/dL Iron Saturation 48.16 H (12.00-45.00) Total Bilirubin 9.2 H (0.2-1.3) mg/dL AST 128 H (14-36) U/L Alkaline Phosphatase 164 H (38-126) U/L Ammonia (<30) umol/L Total Protein 5.7 L (6.3-8.2) g/dL Total Protein (PEP) 5.0 L (6.2-8.2) g/dL Albumin 2.7 L (3.5-5.0) g/dL 05/22/19 05/22/19 Range/Units 09:50 09:50 RBC (3.80-5.40) m/uL Hgb (11.4-16.0) gm/dL Hct (34.0-46.0) % MCV (80.0-100.0) fL RDW (11.5-15.5) % Plt Count (150-450) k/uL PT 16.1 H (9.0-12.0) sec INR 1.6 H (<1.2) Chloride (98-107) mmol/L BUN (7-17) mg/dL Creatinine (0.52-1.04) mg/dL Calcium (8.4-10.2) mg/dL Iron Saturation (12.00-45.00) Total Bilirubin (0.2-1.3) mg/dL AST (14-36) U/L Alkaline Phosphatase (38-126) U/L Ammonia 51 H (<30) umol/L Total Protein (6.3-8.2) g/dL Total Protein (PEP) (6.2-8.2) g/dL Albumin (3.5-5.0) g/dL US - abdomen: report reviewed (Ultrasound of the abdomen negative for any biliary obstruction or acute abnormalities.) Assessment and Plan (1) Cirrhosis Narrative/Plan: 43-year-old female with long-standing history of alcohol abuse who presented to the hospital for concerns over alcohol withdrawal and jaundice. Laboratory evaluation significant for total bilirubin 9.2, alkaline phosphatase is 164, AST 128 and AST 47. Ultrasound with no acute abnormalities noted. INR was found to be 1.6. Patient has bicytopenia with anemia and thrombocytopenia in the setting of elevated MCV. Laboratory evaluation is significant for findings consistent with alcoholic cirrhosis, per patient's prior biopsy 4 years ago failed to show findings of cirrhosis but she has continued to drink alcohol since that time. Current Visit: Yes Status: Acute Code(s): K74.60 - UNSPECIFIED CIRRHOSIS OF LIVER SNOMED Code(s): 52368135 (2) Alcohol withdrawal syndrome Current Visit: Yes Status: Acute Code(s): F10.239 - ALCOHOL DEPENDENCE WITH WITHDRAWAL, UNSPECIFIED SNOMED Code(s): 468311111 (3) Hyperbilirubinemia Current Visit: Yes Status: Acute Code(s): E80.6 - OTHER DISORDERS OF BILIRUBIN METABOLISM SNOMED Code(s): 77907645 Plan: Supportive care Okay for 2 g sodium restricted diet CIWA protocol Alcohol abstinence Continue to monitor CBC, CMP IV vitamin K with elevation in INR likely secondary to underlying liver disease Acute viral hepatitis panel pending HFE gene testing ordered Thank you for allowing us to participate in care of the patient we will continue to follow
--- NOTE | 2019-05-22 23:29 | P.CONS ---
History of Present Illness - Reason for Consult Consult date: 05/22/19 Lower extremity rash and cellulitis Requesting physician: Kevin Gordon - Chief Complaint Tremors and jaundice x few days - History of Present Illness Patient is a 43-year-old female with a past medical history significant for alcohol abuse and heavy drinking presenting to the ER with chief complaints of tremors and concern for cord was drawn and yellow discoloration of her skin and dark urine patient symptom has been going on for the last few days patient also have a dry irritated skin to her lower extremity and that her left foot and some rash on her upper torso which patient say she has for a couple of weeks patient did not recall if she started any new medication or soap before the rash started and apparently has been treated by therapeutic strategy lead without any improvement patient has some dry irritation to the skin rash area but no significant itching pain currently with no open wound or any drainage and denies having any fever or any chills patient has been started on IV cefazolin for possible cellulitis and also has been started on anti-scabies medication by admitting team before this consult was requested and is currently getting worked up for possible cirrhosis Review of Systems Positive points has been mentioned in HPI rest of the systems are negative Past Medical History Past Medical History: Asthma, Pneumonia Additional Past Medical History / Comment(s): Slight jaundice about 5 yrs ago, pneumonia as a child, bronchitis, gastric ulcer, nephrolithiasis-passed stone on her own, UTI, currently being treated for cellulitis R lower leg and pt/family state she has other areas with skin issues, currently has lump R arm and R breast, R hip "pops" out occasionally. History of Any Multi-Drug Resistant Organisms: None Reported Past Surgical History: Tubal Ligation Additional Past Surgical History / Comment(s): EGD Past Anesthesia/Blood Transfusion Reactions: No Reported Reaction Smoking Status: Current every day smoker - Past Family History Father History Unknown: Yes Mother Family Medical History: Hypertension Medications and Allergies Home Medications Medication Instructions Recorded Confirmed Type Clobetasol Propionate [Temovate 0.05 cream TOPICAL TID 05/21/19 05/21/19 History 0.05% Cream] Permethrin 5% Cream [Elimite] 5 cream TOPICAL TID 05/21/19 05/21/19 History diphenhydrAMINE HCL [Benadryl] 25 mg PO 5XD 05/21/19 05/21/19 History predniSONE 1 mg PO DAILY 05/21/19 05/21/19 History predniSONE 5 mg PO QAM 05/21/19 05/21/19 History Allergies Allergy/AdvReac Type Severity Reaction Status Date / Time No Known Allergies Allergy Verified 05/21/19 13:29 Physical Exam Vitals: Vital Signs Temp Pulse Pulse Resp BP Pulse Ox 05/22/19 12:05 98.5 F 84 16 129/70 93 L 05/22/19 08:00 86 86 16 05/22/19 05:00 98.4 F 86 16 144/76 97 05/21/19 21:16 98.3 F 86 16 134/73 96 Intake and Output 05/22/19 05/22/19 05/22/19 06:59 14:59 22:59 Intake Total 1000 850 Balance 1000 850 Intake: Intake, IV Titration 1000 850 Amount Magnesium Sulfate-D5w Pmx 200 1 gm In Dextrose/Water 1 100ml.bag @ 100 mls/hr IVPB Q1H [facility]HEMIAS Rx#: [id number] Phytonadione 5 mg In 50 Sodium Chloride 0.9% 50 ml @ 100 mls/hr IVPB ONCE STA Rx#:[id number] Sodium Chloride 0.9% 1, 800 800 000 ml @ 100 mls/hr IV . Q10H ONE Rx#:[id number] Other: Voiding Method Bedside Commode Bedside Commode Bedside Commode # Voids 3 5 GENERAL DESCRIPTION: Middle-aged female lying in bed, no distress. No tachypnea or accessory muscle of respiration use. HEENT: Shows scleral icterus. Oral mucous membrane is dry. No pharyngeal eryth maggie or thrush NECK: Trachea central, no thyromegaly. LUNGS: Unlabored breathing. Clear to auscultation anteriorly. No wheeze or crackle. HEART: S1, S2, regular rate and rhythm. No loud murmur ABDOMEN: Soft, no tenderness , guarding or rigidity, no organomegaly EXTREMITIES: No edema of feet. SKIN: Dry irritating rash to the right leg and some maculopapular rash to the left foot and upper chest no vesicles Or open wound or any drainage NEUROLOGICAL: The patient is awake, alert, oriented x3, mood and affect normal. Results CBC & Chem 7: 05/22/19 07:44 05/22/19 07:44 Labs: Abnormal Lab Results - Last 24 Hours (Table) 05/22/19 05/22/19 05/22/19 Range/Units 07:44 07:44 09:50 RBC 2.39 L (3.80-5.40) m/uL Hgb 7.6 L (11.4-16.0) gm/dL Hct 24.5 L (34.0-46.0) % MCV 102.7 H (80.0-100.0) fL RDW 18.9 H (11.5-15.5) % Plt Count 41 L (150-450) k/uL PT 16.1 H (9.0-12.0) sec INR 1.6 H (<1.2) Chloride 108 H (98-107) mmol/L BUN 6 L (7-17) mg/dL Creatinine 0.45 L (0.52-1.04) mg/dL Calcium 7.6 L (8.4-10.2) mg/dL Total Bilirubin 9.2 H (0.2-1.3) mg/dL AST 128 H (14-36) U/L Alkaline Phosphatase 164 H (38-126) U/L Ammonia (<30) umol/L Total Protein 5.7 L (6.3-8.2) g/dL Albumin 2.7 L (3.5-5.0) g/dL 05/22/19 Range/Units 09:50 RBC (3.80-5.40) m/uL Hgb (11.4-16.0) gm/dL Hct (34.0-46.0) % MCV (80.0-100.0) fL RDW (11.5-15.5) % Plt Count (150-450) k/uL PT (9.0-12.0) sec INR (<1.2) Chloride (98-107) mmol/L BUN (7-17) mg/dL Creatinine (0.52-1.04) mg/dL Calcium (8.4-10.2) mg/dL Total Bilirubin (0.2-1.3) mg/dL AST (14-36) U/L Alkaline Phosphatase (38-126) U/L Ammonia 51 H (<30) umol/L Total Protein (6.3-8.2) g/dL Albumin (3.5-5.0) g/dL Assessment and Plan Assessment: 1-patient with a dry irritating her rash to the right lower extremity and some to the left foot and upper chest with a question of possible fungal dermatitis versus related to her alcoholism and possible cirrhosis clinically doubt bacterial cellulitis in this patient currently with no fever or elevated white count and no significant erythema to the right leg Plan: 1-Mycolog cream to the right leg and left foot area twice a day 2-we'll discontinue the cefazolin as clinically doubt bacterial cellulitis we will follow on clinical condition and culture to further adjust medication if needed Thank you for this consultation will follow this patient along with you Time with Patient: Greater than 30
[2019-05-23] MEDS: SODIUM CHLORIDE 0.9% 1,000 ML IV SCH ×2 (00:46→11:46)
[2019-05-23] MEDS: LORazepam 2 MG/ML INJ IV PRN ×6 (04:42→22:08)
[2019-05-23] MEDS: NICOTINE 21MG/24HR PATCH TRANSDERM SCH (08:24)
[2019-05-23] MEDS: THIAMINE 100 MG TAB PO SCH ×2 (08:25→17:28)
[2019-05-23] MEDS: LACTULOSE 20 GM/30 ML CUP PO SCH ×3 (08:25→22:45)
[2019-05-23] MEDS: MULTIVITAMINS, THERA 1 EACH TAB PO SCH (08:25)
[2019-05-23] MEDS: PANTOPRAZOLE 40 MG/10 ML VIAL IVP SCH (08:25)
[2019-05-23] MEDS: ACAMPROSATE CALCIUM 333 MG TABLET.DR PO SCH ×4 (08:26→22:45)
[2019-05-23] MEDS: predniSONE 1 MG TAB PO SCH (08:26)
[2019-05-23] MEDS: predniSONE 5 MG TAB PO SCH (08:27)
[2019-05-23] MEDS: PERMETHRIN 5% CREAM 60 GM TUBE TOPICAL SCH ×3 (08:28→22:45)
[2019-05-23] MEDS: CLOBETASOL PROP 0.05% CR 15GM TOPICAL SCH ×3 (08:28→22:45)
[2019-05-23 08:36] LABS: INR 1.6 (<1.2); Prothrombin Time 15.9 sec (9.0-12.0)
[2019-05-23 08:37] LABS: Anisocytosis Slight; Basophils % (A) 1 %; Eosinophils # (A) 0.3 k/uL (0-0.7); Eosinophils % (A) 6 %; HCT 23.5 % (34.0-46.0); HGB 7.2 gm/dL (11.4-16.0); Hypochromasia Marked; Lymphocytes # (A) 1.7 k/uL (1.0-4.8); Lymphocytes % (A) 31 %; MCH 31.6 pg (25.0-35.0); MCHC 30.7 g/dL (31.0-37.0); MCV 102.8 fL (80.0-100.0); Macrocytosis Moderate; Mean Platelet Volume 10.8; Monocytes # (A) 0.3 k/uL (0-1.0); Monocytes % (A) 5 %; Neutrophils % (A) 55 %; RBC 2.29 m/uL (3.80-5.40); RDW 19.2 % (11.5-15.5); WBC 5.4 k/uL (3.8-10.6)
[2019-05-23 08:53] LABS: ALT 42 U/L (9-52); AST 109 U/L (14-36); African American GFR (CKD) >90 (>60 ml/min/1.73 sqM); Albumin 2.7 g/dL (3.5-5.0); Alkaline Phosphatase 153 U/L (38-126); Anion Gap 6 mmol/L; Blood Urea Nitrogen 5 mg/dL (7-17); Calcium 7.5 mg/dL (8.4-10.2); Carbon Dioxide 23 mmol/L (22-30); Chloride 110 mmol/L (98-107); Glucose 98 mg/dL (74-99); Magnesium 1.6 mg/dL (1.6-2.3); Potassium 3.4 mmol/L (3.5-5.1); Sodium 139 mmol/L (137-145); Total Bilirubin 7.9 mg/dL (0.2-1.3); Total Protein 5.7 g/dL (6.3-8.2)
[2019-05-23 09:04] LABS: Platelet Count 41 k/uL (150-450)
[2019-05-23] MEDS ORDERED: Potassium Replacement Protocol 1 EACH MISC MISCELLANE PRN ×2 (11:56→15:59)
[2019-05-23] MEDS: PHYTONADIONE ORAL 5 MG/5 ML ORAL.SYRG PO SCH (12:23)
--- NOTE | 2019-05-23 13:32 | P.PN ---
Subjective Progress Note Date: 05/23/19 Principal diagnosis: ETOH withdraw Hemoglobin stable 7.2, Platelets 41K same as yesterday. Bilirubin trending down. No active signs of bleeding. Abdominal Ultrasound reviewed no splenomegaly noted. Objective - Vital Signs Vital signs: Vital Signs Temp 98.2 F 05/23/19 12:53 Pulse 109 H 05/23/19 12:53 Resp 20 05/23/19 12:53 BP 155/78 05/23/19 12:53 Pulse Ox 97 05/23/19 12:53 Intake & Output 05/22/19 05/23/19 05/23/19 18:59 06:59 18:59 Intake Total 850 1200 Balance 850 1200 Intake: Intake, IV Titration 850 1000 Amount Phytonadione 5 mg In 50 Sodium Chloride 0.9% 50 ml @ 100 mls/hr IVPB ONCE STA Rx#:[id number] Sodium Chloride 0.9% 1, 800 000 ml @ 100 mls/hr IV . Q10H ONE Rx#:[id number] Sodium Chloride 0.9% 1, 900 000 ml @ 100 mls/hr IV . Q10H [facility]MIAS Rx#:[id number] ceFAZolin 1,000 mg In 100 Sodium Chloride 0.9% 50 ml @ 100 mls/hr IVPB Q8HR [facility] Rx#:[id number] Oral 200 Other: Voiding Method Bedside Commode Bedside Commode # Voids 5 1 # Bowel Movements 1 - Exam General: Alert and Oriented x3, No Acute Distress Head: Normocytic, Atraumatic Neck: Supple Mouth: No Lesions, No Thrush Eyes: Non-sclerotic No Palpable cervical, supraclavicular, axillary adenopathy Heart: Regular Rate, Regular Rhythm Lungs: Clear to Ausculations, No Wheeze, No Rhonchi, Diminishe bilateral lower lobes, No increased respiratory effort noted Abdomen: Soft, Non-Distended, Non-Tended, BSx4 Extremities: No Edema, Equal Strength Neurological: No Focal Defects: No sensory or motor deficits noted Psych: Calm and cooperative - Labs CBC & Chem 7: 05/23/19 08:08 05/23/19 08:08 Labs: Abnormal Lab Results - Last 24 Hours (Table) 05/22/19 05/23/19 05/23/19 Range/Units 07:44 08:08 08:08 RBC (3.80-5.40) m/uL Hgb (11.4-16.0) gm/dL Hct (34.0-46.0) % MCV (80.0-100.0) fL MCHC (31.0-37.0) g/dL RDW (11.5-15.5) % Plt Count (150-450) k/uL PT 15.9 H (9.0-12.0) sec INR 1.6 H (<1.2) Potassium 3.4 L (3.5-5.1) mmol/L Chloride 110 H (98-107) mmol/L BUN 5 L (7-17) mg/dL Creatinine 0.48 L (0.52-1.04) mg/dL Calcium 7.5 L (8.4-10.2) mg/dL Iron Saturation 48.16 H (12.00-45.00) Total Bilirubin 7.9 H (0.2-1.3) mg/dL AST 109 H (14-36) U/L Alkaline Phosphatase 153 H (38-126) U/L Total Protein 5.7 L (6.3-8.2) g/dL Total Protein (PEP) 5.0 L (6.2-8.2) g/dL Albumin 2.7 L (3.5-5.0) g/dL Free [place] LC, Quant 2.28 H (0.33-1.94) mg/dL 05/23/19 Range/Units 08:08 RBC 2.29 L (3.80-5.40) m/uL Hgb 7.2 L (11.4-16.0) gm/dL Hct 23.5 L (34.0-46.0) % MCV 102.8 H (80.0-100.0) fL MCHC 30.7 L (31.0-37.0) g/dL RDW 19.2 H (11.5-15.5) % Plt Count 41 L (150-450) k/uL PT (9.0-12.0) sec INR (<1.2) Potassium (3.5-5.1) mmol/L Chloride (98-107) mmol/L BUN (7-17) mg/dL Creatinine (0.52-1.04) mg/dL Calcium (8.4-10.2) mg/dL Iron Saturation (12.00-45.00) Total Bilirubin (0.2-1.3) mg/dL AST (14-36) U/L Alkaline Phosphatase (38-126) U/L Total Protein (6.3-8.2) g/dL Total Protein (PEP) (6.2-8.2) g/dL Albumin (3.5-5.0) g/dL Free [place] LC, Quant (0.33-1.94) mg/dL Assessment and Plan Plan: Assessment and recommendations: Bicytopenia: reviewed full work-up and Abdominal Ultrasound, no idetified splenomegaly Likely secondary to Bone Marrow Suppression from chronic alcohol use. Chronic Un derlying Liver decompositionation. Macrocytic Anemia: - Transfusion support hemoglobin less than 7 Thrombocytopenia: - Stable 41K, continue to hold NSAIDS, ASA, Prophylaxis VTE while under 50K. ETOH Abuse and Withdrawal: - Psychiatry did evaluate and patient appears open to cessation Hyperbilirubinemia: - Secondary to Alcohol Abuse - Improving - Primary Team Management.
--- NOTE | 2019-05-23 15:26 | P.PN ---
Subjective Progress Note Date: 05/23/19 This is a 43-year-old female admitted with alcohol withdrawal, DTs, liver failure and multiple other medical issues. Maintained on gentle IV fluid hydration. CIWA scale 11, continues on CIWA protocol. Tremors present. Nurse reports patient is currently a 2 person assist upon standing. Diet intake poor .Vital signs stable, maintaining O2 sats in the 90s on room air. Afebrile, normal WBC. T bili decreased to 9.2, LFTs improving, INR 1.6, ammonia increasing up 51. Lactulose initiated. GI and psych consults in place with recommendations pending. Abdominal ultrasound completed with results pending. 05/23/2019 maintained on CIWA protocol, Ciwa scale 10.Requiring 1 person assist to ambbulate to BR. Evaluated by hematology, psychiatry, GI and infectious disease with recommendations noted and appreciated . Acamprosate initiated per psychiatry for alcohol dependence.Rash improving, on Mycolog cream. IV antibiotics discontinued as per ID as bacterial cellulitis unlikely -clinically presents without fever or elevated WBC.Hepatitis panel pending. Continue on lactulose, current ammonia down to 24. IV vitamin K administered yesterday, INR remains at 1.6. T bili improving down to 7.9, LFTs continue to improve. Potassium 3.4. Abdominal ultrasound reporting portal vein appears hepatopetal, pancreas tail obscured by overlying bowel gas, left kidney with some lobation; no acute abdomen abnormality. Objective - Vital Signs Vital signs: Vital Signs Temp 98 F 05/23/19 04:54 Pulse 92 05/23/19 04:54 Resp 18 05/23/19 04:54 BP 140/67 05/23/19 04:54 Pulse Ox 95 05/23/19 04:54 Intake & Output 05/22/19 05/23/19 05/23/19 18:59 06:59 18:59 Intake Total 850 1200 Balance 850 1200 Intake: Intake, IV Titration 850 1000 Amount Phytonadione 5 mg In 50 Sodium Chloride 0.9% 50 ml @ 100 mls/hr IVPB ONCE STA Rx#:[id number] Sodium Chloride 0.9% 1, 800 000 ml @ 100 mls/hr IV . Q10H ONE Rx#:[id number] Sodium Chloride 0.9% 1, 900 000 ml @ 100 mls/hr IV . Q10H NEHEMIAS Rx#:[id number] ceFAZolin 1,000 mg In 100 Sodium Chloride 0.9% 50 ml @ 100 mls/hr IVPB Q8HR [facility]HEMIAS Rx#:[id number] Oral 200 Other: Voiding Method Bedside Commode Bedside Commode # Voids 5 1 # Bowel Movements 1 - Exam PHYSICAL EXAM: VITAL SIGNS: [As above] GENERAL: Lying in bed, no acute distress HEENT: Pupils equal, scleral icterus. Oral mucosa moist NECK: No JVD. No thyroid enlargement. No LNs CARDIOVASCULAR: S1, S2 regular.. No murmur RESPIRATION: Breath sounds diminished in the bases. No rhonchi or crackles. No whezzes. ABDOMEN: Soft, nontender . No guarding. no masses palpable.Bowel sounds heard. LEGS: No edema. no swelling PSYCHIATRY: Alert and oriented X3, mood and affect normal. NERVOUS SYSTEM: Cranial N 2-12 grossly normal. Moves all 4 limbs. Diffuse weakness No focal deficits. Tremors present in her arms and legs Skin: no lesions, lower right leg, left foot, upper chest non-draining rash improving Lymphatic system. No LN neck axilla or groin. - Labs CBC & Chem 7: 05/23/19 08:08 05/23/19 08:08 Labs: Abnormal Lab Results - Last 24 Hours (Table) 05/22/19 05/23/19 05/23/19 Range/Units 07:44 08:08 08:08 RBC (3.80-5.40) m/uL Hgb (11.4-16.0) gm/dL Hct (34.0-46.0) % MCV (80.0-100.0) fL MCHC (31.0-37.0) g/dL RDW (11.5-15.5) % Plt Count (150-450) k/uL PT 15.9 H (9.0-12.0) sec INR 1.6 H (<1.2) Potassium 3.4 L (3.5-5.1) mmol/L Chloride 110 H (98-107) mmol/L BUN 5 L (7-17) mg/dL Creatinine 0.48 L (0.52-1.04) mg/dL Calcium 7.5 L (8.4-10.2) mg/dL Iron Saturation 48.16 H (12.00-45.00) Total Bilirubin 7.9 H (0.2-1.3) mg/dL AST 109 H (14-36) U/L Alkaline Phosphatase 153 H (38-126) U/L Total Protein 5.7 L (6.3-8.2) g/dL Total Protein (PEP) 5.0 L (6.2-8.2) g/dL Albumin 2.7 L (3.5-5.0) g/dL Free [place] LC, Quant 2.28 H (0.33-1.94) mg/dL 05/23/19 Range/Units 08:08 RBC 2.29 L (3.80-5.40) m/uL Hgb 7.2 L (11.4-16.0) gm/dL Hct 23.5 L (34.0-46.0) % MCV 102.8 H (80.0-100.0) fL MCHC 30.7 L (31.0-37.0) g/dL RDW 19.2 H (11.5-15.5) % Plt Count 41 L (150-450) k/uL PT (9.0-12.0) sec INR (<1.2) Potassium (3.5-5.1) mmol/L Chloride (98-107) mmol/L BUN (7-17) mg/dL Creatinine (0.52-1.04) mg/dL Calcium (8.4-10.2) mg/dL Iron Saturation (12.00-45.00) Total Bilirubin (0.2-1.3) mg/dL AST (14-36) U/L Alkaline Phosphatase (38-126) U/L Total Protein (6.3-8.2) g/dL Total Protein (PEP) (6.2-8.2) g/dL Albumin (3.5-5.0) g/dL Free [place] LC, Quant (0.33-1.94) mg/dL Assessment and Plan Assessment: -Acute alcohol withdrawal syndrome with active DTs, in a patient with alcohol dependence. -Liver failure, cirrhosis -Elevated LFTs, T bili secondary to above -HyperCoagulopathy secondary to the above -Anemia, possibly of chronic disease, secondary to the above -Severe hyperbilirubinemia -Pruritus secondary to elevated LFTs -Thrombocytopenia secondary to alcohol abuse -Hyperammonemia secondary to alcohol abuse -Obesity, BMI 20.6 -Nicotine dependence -Right lower extremity, left foot, upper chest rash, possible fungal dermatitis, on Mycolog cream. Plan: Continue current medication regime , multivitamin, folic acid, thiamine,mo nitoring and symptomatic treatment. Mephyton 2.5 mg by mouth daily initiated. Viral hepatitis panel pending. Maintain CIWA protocol, IV fluid hydration, ensure supplements.Close monitoring of ammonia levels, continue on lactulose. Acamprosate increased up to 660 mg by mouth 3 times a day, maintenance dose as per psychiatry.Close monitoring of LFTs, T bili, electrolytes, coags, with repeat labs ordered for a.m. PT/OT. Alcohol and smoking cessation readdressed. Discharge planning for possibly subacute rehab, then onto [place]. Further recommendations to follow. The impression and plan of care has been dictated as directed. : I performed a history and examination of this patient, discussed the same with the dictator. I agree with the dictator's note ,documented as a scribe. Any additional findings or plans will be noted.
[2019-05-23] MEDS: POTASSIUM CHLORIDE ER 20 MEQ TAB.ER PO SCH (17:27)
--- NOTE | 2019-05-23 19:00 | PN ---
PROGRESS NOTE DATE OF SERVICE: 05/22/2019. REASON FOR FOLLOWUP: Right lower extremity rash and a question of cellulitis. INTERVAL HISTORY: The patient is currently afebrile. The patient has been breathing comfortably. Denies having any chest pain or cough or abdominal pain. The right leg rash has decreased in intensity. painful or itching. PHYSICAL EXAMINATION: Blood pressure 155/78 with a pulse of 109, temperature 98.2. She is 97% on room air. General description is a middle-aged female lying in bed in no distress. RESPIRATORY SYSTEM: Unlabored breathing. Clear to auscultation anteriorly. HEART: S1, S2. Regular rate and rhythm. ABDOMEN: Soft. No tenderness. Right leg does have some swelling, dried-out rash. No significant redness, open wound or any drainage. LABS: Hemoglobin 7.2, white count 5.4. BUN of 5, creatinine 0.48. DIAGNOSTIC IMPRESSION AND PLAN: Patient with right lower extremity dry and irritating rash. Some rash was noted on the left flank, with a question of possible dermatitis, though underlying cellulitis not entirely excluded. Patient to continue with clobetasol propionate along with Cefazolin. She seems to have shown clinical improvement with it. Continue with supportive care. MMODL / IJN: [id number] /
--- NOTE | 2019-05-23 19:21 | P.PN ---
Subjective Progress Note Date: 05/23/19 Principal diagnosis: alcoholic liver disease, EtOH withdrawal Patient is seen lying in bed. Abdominal pain still present but improved. Overall feels better. Tolerating diet. Objective - Vital Signs Vital signs: Vital Signs Temp 98.2 F 05/23/19 12:53 Pulse 109 H 05/23/19 12:53 Resp 20 05/23/19 12:53 BP 155/78 05/23/19 12:53 Pulse Ox 97 05/23/19 12:53 Intake & Output 05/23/19 05/23/19 05/24/19 06:59 18:59 06:59 Intake Total 1200 1300 Balance 1200 1300 Weight 75.75 kg Intake: Intake, IV Titration 1000 700 Amount Sodium Chloride 0.9% 1, 900 600 000 ml @ 100 mls/hr IV . Q10H NEHEMIAS Rx#:[id number] ceFAZolin 1,000 mg In 100 100 Sodium Chloride 0.9% 50 ml @ 100 mls/hr IVPB Q8HR NEHEMIAS Rx#:[id number] Oral 200 600 Other: Voiding Method Bedside Commode Bedside Commode # Voids 1 4 # Bowel Movements 1 3 - Exam On physical examination, patient appears comfortable in no apparent distress. HEAD: Normocephalic, atraumatic. EYES: Scleral icterus. No conjunctival injection. MOUTH: No lesions, tongue midline. NECK: Trachea midline, no gross abnormalities. CHEST: Clear to auscultation with no wheezing or rhonchi appreciated. HEART: Regular rate and rhythm. ABDOMEN: Soft, mildly tender. Bowel sounds are positive. No organomegaly. No guarding or rigidity. EXTREMITIES: No pedal edema. SKIN: No rashes, jaundice. NEUROLOGIC: Alert and oriented x3, tremors appreciated but no asterixis. No focal deficits. - Labs CBC & Chem 7: 05/23/19 08:08 05/23/19 18:15 Labs: Abnormal Lab Results - Last 24 Hours (Table) 05/22/19 05/22/19 05/23/19 Range/Units 07:44 07:44 08:08 RBC (3.80-5.40) m/uL Hgb (11.4-16.0) gm/dL Hct (34.0-46.0) % MCV (80.0-100.0) fL MCHC (31.0-37.0) g/dL RDW (11.5-15.5) % Plt Count (150-450) k/uL PT 15.9 H (9.0-12.0) sec INR 1.6 H (<1.2) APTT (22.0-30.0) sec Potassium (3.5-5.1) mmol/L Chloride (98-107) mmol/L BUN (7-17) mg/dL Creatinine (0.52-1.04) mg/dL Calcium (8.4-10.2) mg/dL Total Bilirubin (0.2-1.3) mg/dL AST (14-36) U/L Alkaline Phosphatase (38-126) U/L Lactate Dehydrogenase (313-618) U/L Total Protein (6.3-8.2) g/dL Albumin (3.5-5.0) g/dL RBC Folate 907 H (280 - 791) ng/mL Free [place] LC, Quant 2.28 H (0.33-1.94) mg/dL 05/23/19 05/23/19 05/23/19 Range/Units 08:08 08:08 13:33 RBC 2.29 L (3.80-5.40) m/uL Hgb 7.2 L (11.4-16.0) gm/dL Hct 23.5 L (34.0-46.0) % MCV 102.8 H (80.0-100.0) fL MCHC 30.7 L (31.0-37.0) g/dL RDW 19.2 H (11.5-15.5) % Plt Count 41 L (150-450) k/uL PT (9.0-12.0) sec INR (<1.2) APTT 35.2 H (22.0-30.0) sec Potassium 3.4 L (3.5-5.1) mmol/L Chloride 110 H (98-107) mmol/L BUN 5 L (7-17) mg/dL Creatinine 0.48 L (0.52-1.04) mg/dL Calcium 7.5 L (8.4-10.2) mg/dL Total Bilirubin 7.9 H (0.2-1.3) mg/dL AST 109 H (14-36) U/L Alkaline Phosphatase 153 H (38-126) U/L Lactate Dehydrogenase (313-618) U/L Total Protein 5.7 L (6.3-8.2) g/dL Albumin 2.7 L (3.5-5.0) g/dL RBC Folate (280 - 791) ng/mL Free [place] LC, Quant (0.33-1.94) mg/dL 05/23/19 Range/Units 13:33 RBC (3.80-5.40) m/uL Hgb (11.4-16.0) gm/dL Hct (34.0-46.0) % MCV (80.0-100.0) fL MCHC (31.0-37.0) g/dL RDW (11.5-15.5) % Plt Count (150-450) k/uL PT (9.0-12.0) sec INR (<1.2) APTT (22.0-30.0) sec Potassium (3.5-5.1) mmol/L Chloride (98-107) mmol/L BUN (7-17) mg/dL Creatinine (0.52-1.04) mg/dL Calcium (8.4-10.2) mg/dL Total Bilirubin (0.2-1.3) mg/dL AST (14-36) U/L Alkaline Phosphatase (38-126) U/L Lactate Dehydrogenase 1052 H (313-618) U/L Total Protein (6.3-8.2) g/dL Albumin (3.5-5.0) g/dL RBC Folate (280 - 791) ng/mL Free [place] LC, Quant (0.33-1.94) mg/dL Assessment and Plan (1) Cirrhosis Narrative/Plan: 43-year-old female with long-standing history of alcohol abuse who presented to the hospital for concerns over alcohol withdrawal and jaundice. Laboratory evaluation significant for total bilirubin 9.2, alkaline phosphatase is 164, AST 128 and AST 47. Ultrasound with no acute abnormalities noted. INR was found to be 1.6. Patient has bicytopenia with anemia and thrombocytopenia in the setting of elevated MCV. Laboratory evaluation is significant for findings consistent with alcoholic cirrhosis, per patient's prior biopsy 4 years ago failed to show findings of cirrhosis but she has continued to drink alcohol since that time. Current Visit: Yes Status: Acute Code(s): K74.60 - UNSPECIFIED CIRRHOSIS OF LIVER SNOMED Code(s): 45496830 (2) Alcohol withdrawal syndrome Current Visit: Yes Status: Acute Code(s): F10.239 - ALCOHOL DEPENDENCE WITH WITHDRAWAL, UNSPECIFIED SNOMED Code(s): 320089880 (3) Hyperbilirubinemia Current Visit: Yes Status: Acute Code(s): E80.6 - OTHER DISORDERS OF BILIRUBIN METABOLISM SNOMED Code(s): 44587270 Plan: Supportive care Okay for 2 g sodium restricted diet CIWA protocol Alcohol abstinence Continue to monitor CBC, CMP IV vitamin K with elevation in INR likely secondary to underlying liver disease Acute viral hepatitis panel pending HFE gene testing ordered Thank you for allowing us to participate in care of the patient we will continue to follow
[2019-05-24] MEDS: SODIUM CHLORIDE 0.9% 1,000 ML IV SCH ×3 (00:11→22:45)
[2019-05-24] MEDS: LORazepam 2 MG/ML INJ IV PRN ×5 (01:10→17:33)
[2019-05-24] MEDS: predniSONE 1 MG TAB PO SCH (08:28)
[2019-05-24] MEDS: NICOTINE 21MG/24HR PATCH TRANSDERM SCH (08:28)
[2019-05-24] MEDS: THIAMINE 100 MG TAB PO SCH ×2 (08:29→17:33)
[2019-05-24] MEDS: predniSONE 5 MG TAB PO SCH (08:29)
[2019-05-24] MEDS: PHYTONADIONE ORAL 5 MG/5 ML ORAL.SYRG PO SCH (08:29)
[2019-05-24] MEDS: MULTIVITAMINS, THERA 1 EACH TAB PO SCH (08:29)
[2019-05-24] MEDS: LACTULOSE 20 GM/30 ML CUP PO SCH ×3 (08:29→22:46)
[2019-05-24] MEDS: PANTOPRAZOLE 40 MG TABLET PO SCH (08:29)
[2019-05-24 08:35] LABS: ALT 49 U/L (9-52); AST 103 U/L (14-36); African American GFR (CKD) >90 (>60 ml/min/1.73 sqM); Albumin 2.7 g/dL (3.5-5.0); Alkaline Phosphatase 154 U/L (38-126); Anion Gap 5 mmol/L; Blood Urea Nitrogen 4 mg/dL (7-17); Calcium 7.6 mg/dL (8.4-10.2); Carbon Dioxide 23 mmol/L (22-30); Chloride 110 mmol/L (98-107); Glucose 94 mg/dL (74-99); Magnesium 1.5 mg/dL (1.6-2.3); Potassium 3.7 mmol/L (3.5-5.1); Sodium 138 mmol/L (137-145); Total Bilirubin 6.6 mg/dL (0.2-1.3); Total Protein 5.5 g/dL (6.3-8.2)
[2019-05-24] MEDS: ACAMPROSATE CALCIUM 333 MG TABLET.DR PO SCH ×3 (10:36→22:45)
[2019-05-24] MEDS: PERMETHRIN 5% CREAM 60 GM TUBE TOPICAL SCH ×3 (10:39→22:46)
[2019-05-24] MEDS: CLOBETASOL PROP 0.05% CR 15GM TOPICAL SCH ×3 (10:39→22:48)
--- NOTE | 2019-05-24 16:01 | PN ---
PROGRESS NOTE SUBJECTIVE: 43-year-old white female, admitted with alcohol and DTs. She is getting better from a tremor standpoint. Her bilirubin is down to 6 from 7, sodium 138, potassium 3.7, creatinine 0.49, calcium is 7.6, magnesium 1.5. Liver enzymes total bilirubin 6.6 down from 7.9, ammonia is 18 today. Albumin is 2.7. HIV, all the hepatitis tests are negative. Neurologic: She has a mild tremor, much improved. Cardiovascular S1, S2. Neurologic: She is alert and oriented x3. Musculoskeletal: She has weakness in her legs with limited ambulation. PLANS: To continue with PT/OT. Continue with medications. Try the ambulator. Possibly go to rehab center for ambulation versus inpatient for alcohol withdrawal. Continue on alcohol withdrawal medications per Psychiatry. MMODL / IJN: [id number] /
[2019-05-25] MEDS: SODIUM CHLORIDE 0.9% 1,000 ML IV SCH ×3 (05:06→22:37)
[2019-05-25 07:36] LABS: ALT 47 U/L (9-52); AST 104 U/L (14-36); African American GFR (CKD) >90 (>60 ml/min/1.73 sqM); Albumin 2.9 g/dL (3.5-5.0); Alkaline Phosphatase 172 U/L (38-126); Anion Gap 8 mmol/L; Blood Urea Nitrogen 5 mg/dL (7-17); Calcium 8.1 mg/dL (8.4-10.2); Carbon Dioxide 23 mmol/L (22-30); Chloride 107 mmol/L (98-107); Glucose 144 mg/dL (74-99); Potassium 3.7 mmol/L (3.5-5.1); Sodium 138 mmol/L (137-145); Total Bilirubin 6.8 mg/dL (0.2-1.3); Total Protein 5.9 g/dL (6.3-8.2)
[2019-05-25 08:02] LABS: Anisocytosis Slight; Basophils % (A) 0 %; Eosinophils # (A) 0.3 k/uL (0-0.7); Eosinophils % (A) 5 %; HCT 24.5 % (34.0-46.0); HGB 7.5 gm/dL (11.4-16.0); Hypochromasia Marked; Lymphocytes # (A) 2.1 k/uL (1.0-4.8); Lymphocytes % (A) 34 %; MCHC 30.8 g/dL (31.0-37.0); MCV 103.9 fL (80.0-100.0); Macrocytosis Moderate; Mean Platelet Volume 9.4; Monocytes # (A) 0.4 k/uL (0-1.0); Monocytes % (A) 6 %; Neutrophils # (A) 3.2 k/uL (1.3-7.7); Neutrophils % (A) 52 %; RBC 2.36 m/uL (3.80-5.40); RDW 19.3 % (11.5-15.5); WBC 6.2 k/uL (3.8-10.6)
[2019-05-25 08:05] LABS: Platelet Count 52 k/uL (150-450)
[2019-05-25] MEDS: THIAMINE 100 MG TAB PO SCH ×2 (08:38→18:31)
[2019-05-25] MEDS: ACAMPROSATE CALCIUM 333 MG TABLET.DR PO SCH ×3 (08:38→22:38)
[2019-05-25] MEDS: MULTIVITAMINS, THERA 1 EACH TAB PO SCH (08:38)
[2019-05-25] MEDS: NICOTINE 21MG/24HR PATCH TRANSDERM SCH (08:38)
[2019-05-25] MEDS: predniSONE 5 MG TAB PO SCH (08:39)
[2019-05-25] MEDS: predniSONE 1 MG TAB PO SCH (08:39)
[2019-05-25] MEDS: PHYTONADIONE ORAL 5 MG/5 ML ORAL.SYRG PO SCH (08:40)
[2019-05-25] MEDS: CLOBETASOL PROP 0.05% CR 15GM TOPICAL SCH ×3 (08:40→22:39)
[2019-05-25] MEDS: LACTULOSE 20 GM/30 ML CUP PO SCH ×3 (08:40→22:40)
[2019-05-25] MEDS: PANTOPRAZOLE 40 MG TABLET PO SCH (08:40)
[2019-05-25] MEDS: PERMETHRIN 5% CREAM 60 GM TUBE TOPICAL SCH ×3 (08:41→22:39)
[2019-05-25] MEDS: LORazepam 2 MG/ML INJ IV PRN ×5 (08:48→22:41)
--- NOTE | 2019-05-26 00:18 | PN ---
PROGRESS NOTE Cara Carpenter was seen on May 25, 2019. She is tearful, but does not complain of any shortness of breath. She is somewhat anxious. On physical examination blood pressure 140/62, respiratory rate of 16, pulse 104, temperature 98.4. HEENT is unremarkable. Chest is clear. Cardiovascular system is S1, S2. Abdomen is soft. There is no edema. IMPRESSION: 1. Alcoholism with delirium tremens and alcohol withdrawal syndrome. 2. Alcoholic liver disease at the time. 3. Possible right lower extremity cellulitis. The patient is seen by ID and with only local wound care at this time. The patient's prognosis is fair at this time. MMODL / IJN: [id number] /
--- NOTE | 2019-05-26 01:27 | PN ---
PROGRESS NOTE DATE OF SERVICE: 05/25/2019. REASON FOR FOLLOWUP: Right lower extremity cellulitis. INTERVAL HISTORY: The patient is currently afebrile. The patient has been breathing comfortably. Denies any chest pain. No cough. No abdominal pain. Did have some diarrhea. The right leg pressure and redness has improved. No open wound. PHYSICAL EXAMINATION: Blood pressure is 135/94 with a pulse of 100. Temperature 97.8. She is 95% on room air. General description: Middle-aged female lying in bed in no distress. Respiratory system: Unlabored breathing clear to auscultation anteriorly. Heart S1, S2. Regular rate and rhythm. Abdomen soft, no tenderness. Right leg overall swelling, redness has improved. LABS: Hemoglobin 7.5, white count 6.2, BUN of 5 and creatinine 0.47. DIAGNOSTIC IMPRESSION AND PLAN: Patient with right upper extremity rash and minimal erythema and concern for cellulitis, seemed to be clinically responding to Cefazolin. To continue to finish therapy with oral antibiotics. Continue supportive care. MMODL / IJN: [id number] /
[2019-05-26] MEDS: LORazepam 2 MG/ML INJ IV PRN ×5 (03:44→20:56)
[2019-05-26] MEDS: predniSONE 1 MG TAB PO SCH (07:47)
[2019-05-26] MEDS: predniSONE 5 MG TAB PO SCH (07:47)
[2019-05-26] MEDS: MULTIVITAMINS, THERA 1 EACH TAB PO SCH (07:47)
[2019-05-26] MEDS: ACAMPROSATE CALCIUM 333 MG TABLET.DR PO SCH ×3 (07:47→20:55)
[2019-05-26] MEDS: NICOTINE 21MG/24HR PATCH TRANSDERM SCH (07:48)
[2019-05-26] MEDS: THIAMINE 100 MG TAB PO SCH ×2 (07:48→17:12)
[2019-05-26] MEDS: LACTULOSE 20 GM/30 ML CUP PO SCH ×3 (07:48→21:04)
[2019-05-26] MEDS: PANTOPRAZOLE 40 MG TABLET PO SCH (07:48)
[2019-05-26] MEDS: CLOBETASOL PROP 0.05% CR 15GM TOPICAL SCH ×3 (07:49→20:55)
[2019-05-26] MEDS: PHYTONADIONE ORAL 5 MG/5 ML ORAL.SYRG PO SCH (07:49)
[2019-05-26] MEDS: PERMETHRIN 5% CREAM 60 GM TUBE TOPICAL SCH ×3 (07:49→20:55)
[2019-05-26] MEDS: SODIUM CHLORIDE 0.9% 1,000 ML IV SCH ×2 (08:02→19:26)
[2019-05-26 09:12] LABS: Anisocytosis Slight; HCT 25.3 % (34.0-46.0); HGB 7.9 gm/dL (11.4-16.0); Hypochromasia Marked; MCHC 31.2 g/dL (31.0-37.0); MCV 102.6 fL (80.0-100.0); Macrocytosis Moderate; Mean Platelet Volume 9.4; RBC 2.47 m/uL (3.80-5.40); RDW 18.8 % (11.5-15.5); WBC 5.7 k/uL (3.8-10.6)
[2019-05-26 09:21] LABS: Platelet Count 56 k/uL (150-450)
[2019-05-26 09:53] LABS: Basophils # (M) 0.06 k/uL (0-0.2); Eosinophils # (M) 0.23 k/uL (0-0.7); Lymphocytes # (M) 2.17 k/uL (1.0-4.8); Neutrophils % (M) 52 %; Nucleated Red Blood Cells 0 /100 WBC (0-0); Total Cells Counted 200
[2019-05-26 09:54] LABS: Poikilocytosis (M) Present
[2019-05-26 10:13] LABS: ALT 48 U/L (9-52); AST 98 U/L (14-36); African American GFR (CKD) >90 (>60 ml/min/1.73 sqM); Albumin 3.1 g/dL (3.5-5.0); Alkaline Phosphatase 185 U/L (38-126); Anion Gap 7 mmol/L; Blood Urea Nitrogen 6 mg/dL (7-17); Calcium 8.3 mg/dL (8.4-10.2); Carbon Dioxide 23 mmol/L (22-30); Chloride 108 mmol/L (98-107); Glucose 137 mg/dL (74-99); Potassium 3.5 mmol/L (3.5-5.1); Sodium 138 mmol/L (137-145); Total Bilirubin 7.3 mg/dL (0.2-1.3); Total Protein 6.3 g/dL (6.3-8.2)
--- NOTE | 2019-05-26 13:14 | P.PN ---
Subjective Progress Note Date: 05/26/19 This is a 43-year-old female admitted with alcohol withdrawal, DTs, liver failure and multiple other medical issues. Maintained on gentle IV fluid hydration. CIWA scale 11, continues on CIWA protocol. Tremors present. Nurse reports patient is currently a 2 person assist upon standing. Diet intake poor .Vital signs stable, maintaining O2 sats in the 90s on room air. Afebrile, normal WBC. T bili decreased to 9.2, LFTs improving, INR 1.6, ammonia increasing up 51. Lactulose initiated. GI and psych consults in place with recommendations pending. Abdominal ultrasound completed with results pending. 05/23/2019 maintained on CIWA protocol, Ciwa scale 10.Requiring 1 person assist to ambbulate to BR. Evaluated by hematology, psychiatry, GI and infectious disease with recommendations noted and appreciated . Acamprosate initiated per psychiatry for alcohol dependence.Rash improving, on Mycolog cream. IV antibiotics discontinued as per ID as bacterial cellulitis unlikely -clinically presents without fever or elevated WBC.Hepatitis panel pending. Continue on lactulose, current ammonia down to 24. IV vitamin K administered yesterday, INR remains at 1.6. T bili improving down to 7.9, LFTs continue to improve. Potassium 3.4. Abdominal ultrasound reporting portal vein appears hepatopetal, pancreas tail obscured by overlying bowel gas, left kidney with some lobation; no acute abdomen abnormality. 05/26/2019 maintained on cefazolin for cellulitic appearing rash with signific ant clinical improvement. When bowel movement earlier this morning, denies abdominal pain. Mild anxiety. Tremors improving, on CIWA protocol. Vital signs stable, hemoglobin 7.9. T bili 7.3, ammonia within normal limits. INR pending. Evaluated by physical therapy, does not meet criteria for subacute rehab at this time, cleared for [facility]. Hepatitis serology negative. Objective - Vital Signs Vital signs: Vital Signs Temp 98.1 F 05/26/19 11:23 Pulse 81 05/26/19 11:23 Resp 16 05/26/19 11:23 BP 141/68 05/26/19 11:23 Pulse Ox 95 05/26/19 11:23 Intake & Output 05/25/19 05/26/19 05/26/19 18:59 06:59 18:59 Intake Total 360 1200 Balance 360 1200 Intake: Intake, IV Titration 1200 Amount Sodium Chloride 0.9% 1, 800 000 ml @ 100 mls/hr IV . Q10H NEHEMIAS Rx#:[id number] ceFAZolin 1,000 mg In 400 Sodium Chloride 0.9% 50 ml @ 100 mls/hr IVPB Q8HR NEHEMIAS Rx#:[id number] Oral 360 Other: Voiding Method Toilet Toilet Toilet # Voids 3 1 # Bowel Movements 1 - Exam PHYSICAL EXAM: VITAL SIGNS: [As above GENERAL: Sitting up in bed, no acute distress HEENT: Pupils equal, scleral icterus. Oral mucosa moist NECK: No JVD. No thyroid enlargement. No LNs. CARDIOVASCULAR: S1, S2 regular.. No murmur RESPIRATION: Breath sounds diminished in the bases. No rhonchi or crackles. No whezzes. ABDOMEN: Soft, nontender . No guarding. no masses palpable.Bowel sounds heard. LEGS: No edema. no swelling PSYCHIATRY: Alert and oriented X3, mood and affect normal. NERVOUS SYSTEM: Cranial N 2-12 grossly normal. Moves all 4 limbs. Diffuse weakness No focal deficits. Mild Tremors present in her arms and legs Skin: no lesions, lower right leg, left foot, upper chest rash improving - Labs CBC & Chem 7: 05/26/19 08:31 05/26/19 08:31 Labs: Abnormal Lab Results - Last 24 Hours (Table) 05/26/19 05/26/19 Range/Units 08:31 08:31 RBC 2.47 L (3.80-5.40) m/uL Hgb 7.9 L (11.4-16.0) gm/dL Hct 25.3 L (34.0-46.0) % MCV 102.6 H (80.0-100.0) fL RDW 18.8 H (11.5-15.5) % Plt Count 56 L (150-450) k/uL Chloride 108 H (98-107) mmol/L BUN 6 L (7-17) mg/dL Creatinine 0.48 L (0.52-1.04) mg/dL Glucose 137 H (74-99) mg/dL Calcium 8.3 L (8.4-10.2) mg/dL Total Bilirubin 7.3 H (0.2-1.3) mg/dL AST 98 H (14-36) U/L Alkaline Phosphatase 185 H (38-126) U/L Albumin 3.1 L (3.5-5.0) g/dL Assessment and Plan Assessment: -Acute alcohol withdrawal syndrome with DTs, in a patient with alcohol dependence, improving -Liver failure, cirrhosis -Elevated LFTs, T bili secondary to above -HyperCoagulopathy secondary to the above -Anemia, possibly of chronic disease, secondary to the above -Severe hyperbilirubinemia -Pruritus secondary to elevated LFTs -Thrombocytopenia secondary to alcohol abuse -Hyperammonemia secondary to alcohol abuse -Obesity, BMI 20.6 -Nicotine dependence -Right lower extremity, left foot, upper chest rash, possible fungal dermatitis, on Mycolog cream. Plan: Continue current medication regime , multivitamin, folic acid, thiamine,monitoring and symptomatic treatment. Increase ambulation as tolerated. Diet intake fair, requires encouragement. INR pending. Maintain CIWA protocol, IV fluid hydration, ensure supplements between meals.Close monitoring of LFTs, T bili, electrolytes, coags, with repeat labs ordered for am. Alcohol and smoking cessation readdressed. Discharge planning for [facility]. The impression and plan of care has been dictated as directed. : I performed a history and examination of this patient, discussed the same with the dictator. I agree with the dictator's note ,documented as a scribe. Any additional findings or plans will be noted.
[2019-05-26 13:57] LABS: INR 1.5 (<1.2); Prothrombin Time 15.5 sec (9.0-12.0)
--- NOTE | 2019-05-26 14:34 | P.PN ---
Subjective Progress Note Date: 05/26/19 Principal diagnosis: ETOH withdraw CBC reviewed and stable today continues under the supportive care of primary team Objective - Vital Signs Vital signs: Vital Signs Temp 98.1 F 05/26/19 11:23 Pulse 81 05/26/19 11:23 Resp 16 05/26/19 11:23 BP 141/68 05/26/19 11:23 Pulse Ox 95 05/26/19 11:23 Intake & Output 05/25/19 05/26/19 05/26/19 18:59 06:59 18:59 Intake Total 360 1200 Balance 360 1200 Intake: Intake, IV Titration 1200 Amount Sodium Chloride 0.9% 1, 800 000 ml @ 100 mls/hr IV . Q10H [facility] Rx#:[id number] ceFAZolin 1,000 mg In 400 Sodium Chloride 0.9% 50 ml @ 100 mls/hr IVPB Q8HR [facility] Rx#:[id number] Oral 360 Other: Voiding Method Toilet Toilet Toilet # Voids 3 1 # Bowel Movements 1 - Exam General: Alert and Oriented x3, No Acute Distress Jaundice, lethargic Head: Normocytic, Atraumatic Neck: Supple Mouth: No Lesions, No Thrush Eyes: Non-sclerotic No Palpable cervical, supraclavicular, axillary adenopathy Heart: Regular Rate, Regular Rhythm Lungs: Clear to Ausculations, No Wheeze, No Rhonchi, Diminishe bilateral lower lobes, No increased respiratory effort noted Abdomen: Soft, Non-Distended, Non-Tended, BSx4 Extremities: No Edema, Equal Strength Neurological: No Focal Defects: No sensory or motor deficits noted Psych: Calm and cooperative - Labs CBC & Chem 7: 05/26/19 08:31 05/26/19 08:31 Labs: Abnormal Lab Results - Last 24 Hours (Table) 05/26/19 05/26/19 05/26/19 Range/Units 08:31 08:31 13:30 RBC 2.47 L (3.80-5.40) m/uL Hgb 7.9 L (11.4-16.0) gm/dL Hct 25.3 L (34.0-46.0) % MCV 102.6 H (80.0-100.0) fL RDW 18.8 H (11.5-15.5) % Plt Count 56 L (150-450) k/uL PT 15.5 H (9.0-12.0) sec INR 1.5 H (<1.2) Chloride 108 H (98-107) mmol/L BUN 6 L (7-17) mg/dL Creatinine 0.48 L (0.52-1.04) mg/dL Glucose 137 H (74-99) mg/dL Calcium 8.3 L (8.4-10.2) mg/dL Total Bilirubin 7.3 H (0.2-1.3) mg/dL AST 98 H (14-36) U/L Alkaline Phosphatase 185 H (38-126) U/L Albumin 3.1 L (3.5-5.0) g/dL Assessment and Plan Plan: Assessment and recommendations: Bicytopenia: - Reviewed full work-up and Abdominal Ultrasound, no idetified splenomegaly Likely secondary to Bone Marrow Suppression from chronic alcohol use. Chronic Underlying Liver decompositionation. Macrocytic Anemia: - Transfusion support hemoglobin less than 7 - 7.9 today Thrombocytopenia: - Stable 56K today - Continue to hold NSAIDS, ASA, Prophylaxis VTE while under 50K. ETOH Abuse and Withdrawal: - Psychiatry did evaluate and patient appears open to cessation Hyperbilirubinemia: - Secondary to Alcohol Abuse - Improving - Primary Team Management. Rash:improved - abx per primary team
--- NOTE | 2019-05-26 18:44 | P.PN ---
Subjective Progress Note Date: 05/26/19 Principal diagnosis: alcoholic liver disease, EtOH withdrawal Attempted to see patient today but she was in the shower, will re evaluate tomorrow. Objective - Vital Signs Vital signs: Vital Signs Temp 98.1 F 05/26/19 11:23 Pulse 81 05/26/19 11:23 Resp 16 05/26/19 11:23 BP 141/68 05/26/19 11:23 Pulse Ox 95 05/26/19 11:23 Intake & Output 05/25/19 05/26/19 05/26/19 18:59 06:59 18:59 Intake Total 360 1200 800 Balance 360 1200 800 Intake: Intake, IV Titration 1200 800 Amount Sodium Chloride 0.9% 1, 800 750 000 ml @ 100 mls/hr IV . Q10H [facility] Rx#:[id number] ceFAZolin 1,000 mg In 400 50 Sodium Chloride 0.9% 50 ml @ 100 mls/hr IVPB Q8HR [facility] Rx#:[id number] Oral 360 Other: Voiding Method Toilet Toilet Toilet # Voids 3 1 5 # Bowel Movements 1 3 - Labs CBC & Chem 7: 05/26/19 08:31 05/26/19 08:31 Labs: Abnormal Lab Results - Last 24 Hours (Table) 05/26/19 05/26/19 05/26/19 Range/Units 08:31 08:31 13:30 RBC 2.47 L (3.80-5.40) m/uL Hgb 7.9 L (11.4-16.0) gm/dL Hct 25.3 L (34.0-46.0) % MCV 102.6 H (80.0-100.0) fL RDW 18.8 H (11.5-15.5) % Plt Count 56 L (150-450) k/uL PT 15.5 H (9.0-12.0) sec INR 1.5 H (<1.2) Chloride 108 H (98-107) mmol/L BUN 6 L (7-17) mg/dL Creatinine 0.48 L (0.52-1.04) mg/dL Glucose 137 H (74-99) mg/dL Calcium 8.3 L (8.4-10.2) mg/dL Total Bilirubin 7.3 H (0.2-1.3) mg/dL AST 98 H (14-36) U/L Alkaline Phosphatase 185 H (38-126) U/L Albumin 3.1 L (3.5-5.0) g/dL Assessment and Plan (1) Cirrhosis Current Visit: Yes Status: Acute Code(s): K74.60 - UNSPECIFIED CIRRHOSIS OF LIVER SNOMED Code(s): 56814487 (2) Alcohol withdrawal syndrome Current Visit: Yes Status: Acute Code(s): F10.239 - ALCOHOL DEPENDENCE WITH WITHDRAWAL, UNSPECIFIED SNOMED Code(s): 339361173 (3) Hyperbilirubinemia Current Visit: Yes Status: Acute Code(s): E80.6 - OTHER DISORDERS OF BILIRUBIN METABOLISM SNOMED Code(s): 65262290
--- NOTE | 2019-05-26 22:28 | PN ---
PROGRESS NOTE DATE OF SERVICE: 05/26/2019 REASON FOR FOLLOWUP: Right leg rash with a question of cellulitis. INTERVAL HISTORY: The patient is currently afebrile. The patient has been breathing comfortably. Denies having any chest pain, shortness of breath or cough. Right leg still has some rash with some itching. No open wound or any drainage. PHYSICAL EXAMINATION: Blood pressure is 141/68 with a pulse of 81, temperature 98.1. She is 95% on room air. General description is a middle-aged female lying in bed in no distress. RESPIRATORY SYSTEM: Unlabored breathing. Clear to auscultation anteriorly. HEART: S1, S2. Regular rate and rhythm. ABDOMEN: Soft. No tenderness. Right leg still has some rash, some swelling. No redness. No open wound or any drainage. LABS: Hemoglobin 7.9, white count 5.7, BUN of 6, creatinine 0.48. DIAGNOSTIC IMPRESSION AND PLAN: Patient with right lower extremity cellulitis with a rash. Local care to be switched over to Mycolog cream. Continue Cefazolin. Monitor clinical course closely. Continue supportive care. MMODL / IJN: [id number] /
[2019-05-27] MEDS: LORazepam 2 MG/ML INJ IV PRN ×5 (00:51→23:04)
[2019-05-27] MEDS: SODIUM CHLORIDE 0.9% 1,000 ML IV SCH ×2 (04:40→05:32)
[2019-05-27 05:55] VITALS: RESP 16
[2019-05-27] MEDS: THIAMINE 100 MG TAB PO SCH ×2 (07:35→17:55)
[2019-05-27] MEDS: LACTULOSE 20 GM/30 ML CUP PO SCH ×3 (07:35→19:58)
[2019-05-27] MEDS: MULTIVITAMINS, THERA 1 EACH TAB PO SCH (07:35)
[2019-05-27] MEDS: ACAMPROSATE CALCIUM 333 MG TABLET.DR PO SCH ×3 (07:35→23:03)
[2019-05-27] MEDS: predniSONE 1 MG TAB PO SCH (07:36)
[2019-05-27] MEDS: predniSONE 5 MG TAB PO SCH (07:36)
[2019-05-27] MEDS: NICOTINE 21MG/24HR PATCH TRANSDERM SCH (07:37)
[2019-05-27] MEDS: PANTOPRAZOLE 40 MG TABLET PO SCH (07:37)
[2019-05-27] MEDS: PERMETHRIN 5% CREAM 60 GM TUBE TOPICAL SCH ×3 (07:39→23:07)
[2019-05-27] MEDS: CLOBETASOL PROP 0.05% CR 15GM TOPICAL SCH (07:39)
[2019-05-27] MEDS: PHYTONADIONE ORAL 5 MG/5 ML ORAL.SYRG PO SCH (07:40)
[2019-05-27 07:50] LABS: INR 1.6 (<1.2); Prothrombin Time 15.7 sec (9.0-12.0)
[2019-05-27 07:57] LABS: ALT 45 U/L (9-52); AST 86 U/L (14-36); African American GFR (CKD) >90 (>60 ml/min/1.73 sqM); Albumin 2.7 g/dL (3.5-5.0); Alkaline Phosphatase 162 U/L (38-126); Anion Gap 6 mmol/L; Blood Urea Nitrogen 5 mg/dL (7-17); Calcium 7.7 mg/dL (8.4-10.2); Carbon Dioxide 22 mmol/L (22-30); Chloride 109 mmol/L (98-107); Glucose 97 mg/dL (74-99); Magnesium 1.4 mg/dL (1.6-2.3); Potassium 3.5 mmol/L (3.5-5.1); Sodium 137 mmol/L (137-145); Total Bilirubin 6.3 mg/dL (0.2-1.3); Total Protein 5.6 g/dL (6.3-8.2)
[2019-05-27 08:01] LABS: Anisocytosis Slight; HCT 23.7 % (34.0-46.0); HGB 7.3 gm/dL (11.4-16.0); Hypochromasia Marked; MCH 32.2 pg (25.0-35.0); MCHC 30.7 g/dL (31.0-37.0); MCV 105.1 fL (80.0-100.0); Macrocytosis Marked; Mean Platelet Volume 8.7; RBC 2.26 m/uL (3.80-5.40); RDW 18.5 % (11.5-15.5); WBC 5.3 k/uL (3.8-10.6)
[2019-05-27 08:15] LABS: Platelet Count 84 k/uL (150-450)
[2019-05-27 11:04] LABS: Band Neutrophils % 1 %; Eosinophils # (M) 0.11 k/uL (0-0.7); Mixed Population RBC Present; Monocytes # (M) 0.27 k/uL (0-1.0); Neutrophils % (M) 58 %; Nucleated Red Blood Cells 0 /100 WBC (0-0); Polychromasia Present; Total Cells Counted 100
[2019-05-27 11:05] LABS: RBC Fragments Present; Spherocytes Present; Target Cells Present
--- NOTE | 2019-05-27 12:52 | P.PN ---
Subjective Progress Note Date: 05/27/19 Principal diagnosis: Alcohol liver disease EtOH withdrawal Feels well today. Discharge tomorrow plan for [facility]. INR 1.6. Total bilirubin 6.3. AST 86. ALT 45. AP 162. Objective - Vital Signs Vital signs: Vital Signs Temp 98.7 F 05/27/19 12:01 Pulse 82 05/27/19 12:01 Resp 16 05/27/19 12:01 BP 117/66 05/27/19 12:01 Pulse Ox 94 L 05/27/19 12:01 Intake & Output 05/26/19 05/27/19 05/27/19 18:59 06:59 18:59 Intake Total 800 1390 240 Balance 800 1390 240 Intake: Intake, IV Titration 800 800 Amount Sodium Chloride 0.9% 1, 750 000 ml @ 100 mls/hr IV . Q10H [facility] Rx#:[id number] ceFAZolin 1,000 mg In 50 800 Sodium Chloride 0.9% 50 ml @ 100 mls/hr IVPB Q8HR [facility] Rx#:[id number] Oral 590 240 Other: Voiding Method Toilet Toilet # Voids 5 2 # Bowel Movements 3 2 - Exam General appearance: The patient is alert, oriented, in no acute distress. Jaundice. HET: Head is normocephalic and atraumatic. Pupils are equal and reactive. Oropharynx is clear without lesions. Sclerae icterus. Neck: Supple without lymphadenopathy. Trachea midline. Heart: S1 S2. Regular rate and rhythm. Lungs: No crackles or wheezes are heard. Abdomen: Soft, nontender, nondistended with bowel sounds. No peritoneal signs. No palpable organomegaly or masses. Extremities: Normal skin color and turgor. No cyanosis, rash, ulceration, clubbing, or edema. Radial and pedal pulses are 2/4 bilaterally. Neurological: No focal deficits. Strength and sensation are grossly intact. - Labs CBC & Chem 7: 05/27/19 07:06 05/27/19 07:06 Labs: Abnormal Lab Results - Last 24 Hours (Table) 05/26/19 05/27/19 05/27/19 Range/Units 13:30 07:06 07:06 RBC 2.26 L (3.80-5.40) m/uL Hgb 7.3 L (11.4-16.0) gm/dL Hct 23.7 L (34.0-46.0) % MCV 105.1 H (80.0-100.0) fL MCHC 30.7 L (31.0-37.0) g/dL RDW 18.5 H (11.5-15.5) % Plt Count 84 L (150-450) k/uL Macrocytosis Marked A PT 15.5 H 15.7 H (9.0-12.0) sec INR 1.5 H 1.6 H (<1.2) Chloride (98-107) mmol/L BUN (7-17) mg/dL Creatinine (0.52-1.04) mg/dL Calcium (8.4-10.2) mg/dL Magnesium (1.6-2.3) mg/dL Total Bilirubin (0.2-1.3) mg/dL AST (14-36) U/L Alkaline Phosphatase (38-126) U/L Total Protein (6.3-8.2) g/dL Albumin (3.5-5.0) g/dL 05/27/19 Range/Units 07:06 RBC (3.80-5.40) m/uL Hgb (11.4-16.0) gm/dL Hct (34.0-46.0) % MCV (80.0-100.0) fL MCHC (31.0-37.0) g/dL RDW (11.5-15.5) % Plt Count (150-450) k/uL Macrocytosis PT (9.0-12.0) sec INR (<1.2) Chloride 109 H (98-107) mmol/L BUN 5 L (7-17) mg/dL Creatinine 0.43 L (0.52-1.04) mg/dL Calcium 7.7 L (8.4-10.2) mg/dL Magnesium 1.4 L (1.6-2.3) mg/dL Total Bilirubin 6.3 H (0.2-1.3) mg/dL AST 86 H (14-36) U/L Alkaline Phosphatase 162 H (38-126) U/L Total Protein 5.6 L (6.3-8.2) g/dL Albumin 2.7 L (3.5-5.0) g/dL Assessment and Plan (1) Alcohol withdrawal syndrome Current Visit: Yes Status: Acute Code(s): F10.239 - ALCOHOL DEPENDENCE WITH WITHDRAWAL, UNSPECIFIED SNOMED Code(s): 504580133 (2) Cirrhosis Current Visit: Yes Status: Acute Code(s): K74.60 - UNSPECIFIED CIRRHOSIS OF LIVER SNOMED Code(s): 59525253 (3) Hyperbilirubinemia Current Visit: Yes Status: Acute Code(s): E80.6 - OTHER DISORDERS OF BILIRUBIN METABOLISM SNOMED Code(s): 68793016 Plan: 1. Alcohol abstinence advised. DC to [facility] per medicine. Recommend repeat CMP 1-2 weeks after discharge. Follow-up GI office after discharge from [facility]. Assessment and plan a care discussed with Dr. Forde
[2019-05-27] MEDS: TRIAMCINOLONE 0.1% CREAM 80 GM TUBE TOPICAL SCH ×2 (12:58→23:03)
[2019-05-27] MEDS: NYSTATIN 100,000UNIT/GM CREAM 30 GM TUBE TOPICAL SCH ×2 (12:58→23:03)
[2019-05-27 15:05] LABS: Albumin 2.79 g/dL (3.80-4.90); Gamma Globulin 0.97 g/dL (0.70-1.50)
[2019-05-27 15:49] VITALS: BMI 30.7
--- NOTE | 2019-05-27 16:51 | PN ---
PROGRESS NOTE DATE OF SERVICE: 05/27/2019. REASON FOR FOLLOWUP: Right leg rash and cellulitis. INTERVAL HISTORY: The patient is currently afebrile. The patient has been breathing comfortably. Denies having any chest pain or any cough. The right leg swelling has slightly decreased intensity. No nausea, vomiting. No abdominal pain. No diarrhea. PHYSICAL EXAMINATION: Blood pressure 117/66, pulse of 82, temperature 98.7, she is 94% on room air. General description is a middle aged female lying in bed in no distress. Respiratory system: Unlabored breathing. Clear to auscultation anteriorly. Heart S1, S2. Regular rate and rhythm. Abdomen soft, no tenderness. Right leg swelling has decreased rash/decreased intensity as well. LAB DATA: Hemoglobin 7.8, white count 5.3, BUN of 5, creatinine 0.43. DIAGNOSTIC IMPRESSION AND PLAN: Patient with right lower extremity rash with cellulitis, currently covered with cefazolin. Local care to be switched over to Mycolog cream twice a day for about a week. Continue supportive care. MMODL / IJN: [id number] /
[2019-05-28 01:28] VITALS: PULSE 82
[2019-05-28 06:02] VITALS: BP 121/67; TEMP 98.3
[2019-05-28] MEDS: LORazepam 2 MG/ML INJ IV PRN (08:13)
[2019-05-28] MEDS: predniSONE 5 MG TAB PO SCH (08:19)
[2019-05-28] MEDS: NYSTATIN 100,000UNIT/GM CREAM 30 GM TUBE TOPICAL SCH (08:20)
[2019-05-28] MEDS: TRIAMCINOLONE 0.1% CREAM 80 GM TUBE TOPICAL SCH (08:20)
[2019-05-28] MEDS: THIAMINE 100 MG TAB PO SCH (08:20)
[2019-05-28] MEDS: PHYTONADIONE ORAL 5 MG/5 ML ORAL.SYRG PO SCH (08:20)
[2019-05-28] MEDS: predniSONE 1 MG TAB PO SCH (08:21)
[2019-05-28] MEDS: PANTOPRAZOLE 40 MG TABLET PO SCH (08:21)
[2019-05-28] MEDS: MULTIVITAMINS, THERA 1 EACH TAB PO SCH (08:21)
[2019-05-28] MEDS: ACAMPROSATE CALCIUM 333 MG TABLET.DR PO SCH (08:21)
[2019-05-28] MEDS: PERMETHRIN 5% CREAM 60 GM TUBE TOPICAL SCH (08:22)
[2019-05-28] MEDS: LACTULOSE 20 GM/30 ML CUP PO SCH (08:22)
[2019-05-28] MEDS: NICOTINE 21MG/24HR PATCH TRANSDERM SCH (08:22)
[2019-05-28] MEDS ORDERED: Magnesium Replacement Protocol 1 EACH MISC MISCELLANE PRN (09:33)
[2019-05-28 10:29] LABS: African American GFR (CKD) >90 (>60 ml/min/1.73 sqM); Anion Gap 8 mmol/L; Blood Urea Nitrogen 8 mg/dL (7-17); Calcium 8.9 mg/dL (8.4-10.2); Carbon Dioxide 25 mmol/L (22-30); Chloride 104 mmol/L (98-107); Glucose 118 mg/dL (74-99); Magnesium 1.7 mg/dL (1.6-2.3); Potassium 3.7 mmol/L (3.5-5.1); Sodium 137 mmol/L (137-145)
--- NOTE | 2019-05-28 13:07 | PN ---
PROGRESS NOTE DATE OF SERVICE: 05/28/2019 REASON FOR FOLLOWUP: Right lower extremity cellulitis, no rash. INTERVAL HISTORY: The patient was seen on rounds this morning. The patient has been afebrile. The patient was all dressed up and ready to be discharged. Denies any chest pain or shortness of breath or cough. No abdominal pain,. Swelling of the leg persists, but redness and the rash has improved. PHYSICAL EXAMINATION: On examination, blood pressure 121/67 with a pulse of 82, temperature 98.3. She is 95% on room air. General description is a middle aged female lying in bed in no distress. RESPIRATORY SYSTEM: Unlabored breathing, clear to auscultation anteriorly. HEART: S1, S2. Regular rate and rhythm. ABDOMEN: Soft. Right leg swelling with decreased redness resolved. No rash was noted. LABS: Creatinine 0.53. DIAGNOSTIC IMPRESSION AND PLAN: Patient with right lower extremity rash and cellulitis. Local care to continue with Mycolog cream. Finish short course of oral Keflex and close outpatient followup. MMODL / IJN: [id number] /
--- NOTE | 2019-05-28 17:00 | P.PN ---
Subjective Progress Note Date: 05/28/19 This is a 43-year-old female admitted with alcohol withdrawal, DTs, liver failure and multiple other medical issues. Maintained on gentle IV fluid hydration. CIWA scale 11, continues on CIWA protocol. Tremors present. Nurse reports patient is currently a 2 person assist upon standing. Diet intake poor .Vital signs stable, maintaining O2 sats in the 90s on room air. Afebrile, normal WBC. T bili decreased to 9.2, LFTs improving, INR 1.6, ammonia increasing up 51. Lactulose initiated. GI and psych consults in place with recommendations pending. Abdominal ultrasound completed with results pending. 05/23/2019 maintained on CIWA protocol, Ciwa scale 10.Requiring 1 person assist to ambbulate to BR. Evaluated by hematology, psychiatry, GI and infectious disease with recommendations noted and appreciated . Acamprosate initiated per psychiatry for alcohol dependence.Rash improving, on Mycolog cream. IV antibiotics discontinued as per ID as bacterial cellulitis unlikely -clinically presents without fever or elevated WBC.Hepatitis panel pending. Continue on lactulose, current ammonia down to 24. IV vitamin K administered yesterday, INR remains at 1.6. T bili improving down to 7.9, LFTs continue to improve. Potassium 3.4. Abdominal ultrasound reporting portal vein appears hepatopetal, pancreas tail obscured by overlying bowel gas, left kidney with some lobation; no acute abdomen abnormality. 05/26/2019 maintained on cefazolin for cellulitic appearing rash with signific ant clinical improvement. When bowel movement earlier this morning, denies abdominal pain. Mild anxiety. Tremors improving, on CIWA protocol. Vital signs stable, hemoglobin 7.9. T bili 7.3, ammonia within normal limits. INR pending. Evaluated by physical therapy, does not meet criteria for subacute rehab at this time, cleared for [facility]. Hepatitis serology negative. 05/27/2019 no overnight events, feels better/stronger today. INR 1.6, T bili 6.3, with LFTs trending down. Vital signs stable. Denies lightheadedness dizziness or focal deficits. Objective - Vital Signs Vital signs: Vital Signs Temp 98.3 F 05/27/19 05:00 Pulse 100 05/27/19 05:00 Resp 16 05/27/19 05:00 BP 151/76 05/27/19 05:00 Pulse Ox 95 05/27/19 05:00 Intake & Output 05/26/19 05/27/19 05/27/19 18:59 06:59 18:59 Intake Total 800 1390 240 Balance 800 1390 240 Intake: Intake, IV Titration 800 800 Amount Sodium Chloride 0.9% 1, 750 000 ml @ 100 mls/hr IV . Q10H [facility] Rx#:[id number] ceFAZolin 1,000 mg In 50 800 Sodium Chloride 0.9% 50 ml @ 100 mls/hr IVPB Q8HR [facility] Rx#:[id number] Oral 590 240 Other: Voiding Method Toilet Toilet # Voids 5 2 # Bowel Movements 3 2 - Exam PHYSICAL EXAM: VITAL SIGNS: [As above GENERAL: Sitting up in bed, no acute distress. Jaundiced. HEENT: Pupils equal, scleral icterus. Oral mucosa moist NECK: No JVD. No thyroid enlargement. No LNs. CARDIOVASCULAR: S1, S2 regular.. No murmur RESPIRATION: Breath sounds diminished in the bases. No rhonchi or crackles. No whezzes. ABDOMEN: Soft, nontender . No guarding. no masses palpable.Bowel sounds heard. LEGS: No edema. no swelling PSYCHIATRY: Alert and oriented X3, mood and affect normal. NERVOUS SYSTEM: Cranial N 2-12 grossly normal. Moves all 4 limbs. Diffuse weakness No focal deficits. Skin: lower right leg, left foot, upper chest rash improving - Labs CBC & Chem 7: 05/27/19 07:06 05/28/19 10:00 Labs: Abnormal Lab Results - Last 24 Hours (Table) 05/26/19 05/27/19 05/27/19 Range/Units 13:30 07:06 07:06 RBC 2.26 L (3.80-5.40) m/uL Hgb 7.3 L (11.4-16.0) gm/dL Hct 23.7 L (34.0-46.0) % MCV 105.1 H (80.0-100.0) fL MCHC 30.7 L (31.0-37.0) g/dL RDW 18.5 H (11.5-15.5) % Plt Count 84 L (150-450) k/uL Macrocytosis Marked A PT 15.5 H 15.7 H (9.0-12.0) sec INR 1.5 H 1.6 H (<1.2) Chloride (98-107) mmol/L BUN (7-17) mg/dL Creatinine (0.52-1.04) mg/dL Calcium (8.4-10.2) mg/dL Magnesium (1.6-2.3) mg/dL Total Bilirubin (0.2-1.3) mg/dL AST (14-36) U/L Alkaline Phosphatase (38-126) U/L Total Protein (6.3-8.2) g/dL Albumin (3.5-5.0) g/dL 05/27/19 Range/Units 07:06 RBC (3.80-5.40) m/uL Hgb (11.4-16.0) gm/dL Hct (34.0-46.0) % MCV (80.0-100.0) fL MCHC (31.0-37.0) g/dL RDW (11.5-15.5) % Plt Count (150-450) k/uL Macrocytosis PT (9.0-12.0) sec INR (<1.2) Chloride 109 H (98-107) mmol/L BUN 5 L (7-17) mg/dL Creatinine 0.43 L (0.52-1.04) mg/dL Calcium 7.7 L (8.4-10.2) mg/dL Magnesium 1.4 L (1.6-2.3) mg/dL Total Bilirubin 6.3 H (0.2-1.3) mg/dL AST 86 H (14-36) U/L Alkaline Phosphatase 162 H (38-126) U/L Total Protein 5.6 L (6.3-8.2) g/dL Albumin 2.7 L (3.5-5.0) g/dL Assessment and Plan Assessment: -Acute alcohol withdrawal syndrome with DTs, in a patient with alcohol dependence, improved. -Liver failure, cirrhosis -Elevated LFTs, T bili secondary to above, improving -HyperCoagulopathy secondary to the above -Anemia, possibly of chronic disease, secondary to the above -hyperbilirubinemia -Thrombocytopenia secondary to alcohol abuse -Hyperammonemia secondary to alcohol abuse, resolved -Obesity, BMI 30.7 -Nicotine dependence -Right lower extremity, left foot, upper chest rash, possible fungal dermatitis, on Mycolog cream, improving. Plan: Continue current medication regime , multivitamin, folic acid, thiamine,monitoring and symptomatic treatment. Increase ambulation as tolerated. Ensure supplements between meals. Alcohol and smoking cessation readdressed. Discharge planning for [facility] in progress for tomorrow . The impression and plan of care has been dictated as directed. : I performed a history and examination of this patient, discussed the same with the dictator. I agree with the dictator's note ,documented as a scribe. Any additional findings or plans will be noted.
--- NOTE | 2019-05-28 17:05 | P.DS ---
Providers Date of admission: 05/21/19 14:25 Expected date of discharge: 05/28/19 Attending physician: Kevin Gordon Consults: 05/21/19 21:23 Consult Physician Routine Consulting Provider: Juanpablo Whitaker Consult Reason/Comments: alcohol addiction medication Do you want consulting provider notified?: Already Contacted 05/22/19 12:04 Consult Physician Routine Consulting Provider: Justin Giles Consult Reason/Comments: anemia Do you want consulting provider notified?: Yes 05/22/19 17:14 Consult Physician Routine Consulting Provider: Giselle Roth Consult Reason/Comments: cellulitis leg Do you want consulting provider notified?: Yes Primary care physician: [facility] Course: Final Diagnoses: -Acute alcohol withdrawal syndrome with DTs, in a patient with alcohol dependence, improved. -Liver failure, cirrhosis -Elevated LFTs, T bili secondary to above, improving -HyperCoagulopathy secondary to the above -Anemia, possibly of chronic disease, secondary to the above -hyperbilirubinemia -Thrombocytopenia secondary to alcohol abuse -Hyperammonemia secondary to alcohol abuse, resolved -Obesity, BMI 30.7 -Nicotine dependence -Right lower extremity, left foot, upper chest rash, possible fungal dermatitis, on Mycolog cream, improving. Hospital course:This is a 43-year-old female admitted with alcohol withdrawal, DTs, liver failure and multiple other medical issues. Maintained on gentle IV fluid hydration. CIWA scale 11, continues on CIWA protocol. Tremors present. Nurse reports patient is currently a 2 person assist upon standing. Diet intake poor.Vital signs stable, maintaining O2 sats in the 90s on room air. Afebrile, normal WBC. T bili decreased to 9.2, LFTs improving, INR 1.6, ammonia increasing up 51. Lactulose initiated. GI and psych consults in place with recommendations pending. Abdominal ultrasound completed with results pending. 05/23/2019 maintained on CIWA protocol, Ciwa scale 10.Requiring 1 person assist to ambbulate to BR. Evaluated by hematology, psychiatry, GI and infectious disease with recommendations noted and appreciated . Acamprosate initiated per psychiatry for alcohol dependence.Rash improving, on Mycolog cream. IV antibiotics discontinued as per ID as bacterial cellulitis unlikely -clinically presents without fever or elevated WBC.Hepatitis panel pending. Continue on lactulose, current ammonia down to 24. IV vitamin K administered yesterday, INR remains at 1.6. T bili improving down to 7.9, LFTs continue to improve. Potassium 3.4. Abdominal ultrasound reporting portal vein appears hepatopetal, pancreas tail obscured by overlying bowel gas, left kidney with some lobation; no acute abdomen abnormality. 05/26/2019 maintained on cefazolin for cellulitic appearing rash with signi ficant clinical improvement. When bowel movement earlier this morning, denies abdominal pain. Mild anxiety. Tremors improving, on CIWA protocol. Vital signs stable, hemoglobin 7.9. T bili 7.3, ammonia within normal limits. INR pending. Evaluated by physical therapy, does not meet criteria for subacute rehab at this time, cleared for [facility]. Hepatitis serology negative. 05/27/2019 no overnight events, feels better/stronger today. INR 1.6, T bili 6.3, with LFTs trending down. Vital signs stable. Denies lightheadedness dizziness or focal deficits. Significant clinical improvement. Patient cleared by all consults for discharge. Patient is being discharged to [facility] in a stable condition with guarded prognosis. EXAM: GENERAL: Alert and oriented 3, no acute CARDIOVASCULAR: S1, S2 regular.. No murmur RESPIRATION: Breath sounds diminished in the bases. No rhonchi or crackles. No whezzes. ABDOMEN: Soft, nontender . No guarding. no masses palpable. Positive bowel sounds. NERVOUS SYSTEM: No focal deficits. The impression and plan of care has been dictated as directed. : I performed a history and examination of this patient, discussed the same with the dictator. I agree with the dictator's note ,documented as a scribe. Any additional findings or plans will be noted. Time taken: 35 minutes Patient Condition at Discharge: Stable Plan - Discharge Summary Discharge Rx Participant: No New Discharge Prescriptions: New Acamprosate Calcium [Campral] 666 mg PO TID #180 tablet. Lactulose [Cephulac] 20 gm PO DAILY #300 ml Nicotine 21Mg/24Hr Patch [Habitrol] 1 patch TRANSDERM DAILY #30 patch Triamcinolone 0.1% Cream [Kenalog 0.1% Cream] 1 applic TOPICAL BID 7 Days #15 gm Pantoprazole [Protonix] 40 mg PO DAILY #30 tablet. Folic Acid 1 mg PO DAILY #30 tablet Thiamine [Vitamin B-1] 100 mg PO DAILY #30 tab Phytonadione Oral [Vitamin K Oral] 2.5 mg PO DAILY #15 oral.syrg Cephalexin [Keflex] 500 mg PO Q8HR 7 Days #21 cap Continue predniSONE 5 mg PO QAM predniSONE 1 mg PO DAILY Permethrin 5% Cream [Elimite] 5 cream TOPICAL TID Discontinued diphenhydrAMINE HCL [Benadryl] 25 mg PO 5XD Clobetasol Propionate [Temovate 0.05% Cream] 0.05 cream TOPICAL TID Discharge Medication List Permethrin 5% Cream [Elimite] 5 cream TOPICAL TID 05/21/19 [History] predniSONE 1 mg PO DAILY 05/21/19 [History] predniSONE 5 mg PO QAM 05/21/19 [History] Acamprosate Calcium [Campral] 666 mg PO TID #180 tablet. 05/28/19 [Rx] Cephalexin [Keflex] 500 mg PO Q8HR 7 Days #21 cap 05/28/19 [Rx] Folic Acid 1 mg PO DAILY #30 tablet 05/28/19 [Rx] Lactulose [Cephulac] 20 gm PO DAILY #300 ml 05/28/19 [Rx] Nicotine 21Mg/24Hr Patch [Habitrol] 1 patch TRANSDERM DAILY #30 patch 05/28/19 [Rx] Pantoprazole [Protonix] 40 mg PO DAILY #30 tablet. 05/28/19 [Rx] Phytonadione Oral [Vitamin K Oral] 2.5 mg PO DAILY #15 oral.syrg 05/28/19 [Rx] Thiamine [Vitamin B-1] 100 mg PO DAILY #30 tab 05/28/19 [Rx] Triamcinolone 0.1% Cream [Kenalog 0.1% Cream] 1 applic TOPICAL BID 7 Days #15 gm 05/28/19 [Rx] Follow up Appointment(s)/Referral(s): Kevin Gordon MD [Primary Care Provider] - 1 Week Juan Forde MD [STAFF PHYSICIAN] - 3 Weeks Ambulatory/Diagnostic Orders: Comprehensive Metabolic Panel [LAB.AMB] Time Frame: 2 Weeks, Location: None Selected Patient Instructions/Handouts: Thiamine (By mouth), Nicotine (Absorbed through the skin), Lactulose (By mouth), Triamcinolone (On the skin), Phytonadione (By injection), Pantoprazole (By mouth), Acamprosate (By mouth), Alcohol Intoxication (DC), Alcohol Withdrawal (DC), Hypomagnesemia (DC) Discharge Disposition: HOME SELF-CARE
[2019-06-01] MEDS ORDERED: predniSONE 1 MG TAB PO SCH (09:00)
[2019-06-06] MEDS ORDERED: predniSONE 1 MG TAB PO SCH (09:00)
== END 2019-05-28 10:50 | disposition home or self-care (01) | DRG 433 ==
LOC: EC 12:28 → 3NMEDONC 14:25
PROVIDERS: ADMIT Family Medicine; ATTEND Family Medicine
DX: K70.30 Alcoholic cirrhosis of liver without ascites (principal); F10.231 Alcohol dependence with withdrawal delirium; L03.115 Cellulitis of right lower limb; D69.59 Other secondary thrombocytopenia; E83.42 Hypomagnesemia; K72.90 Hepatic failure, unspecified without coma; D63.8 Anemia in other chronic diseases classified elsewhere; E87.6 Hypokalemia; J45.909 Unspecified asthma, uncomplicated; Y90.0 Blood alcohol level of less than 20 mg/100 ml; F41.9 Anxiety disorder, unspecified; L29.9 Pruritus, unspecified; E66.9 Obesity, unspecified; Z68.30 Body mass index [BMI] 30.0-30.9, adult; F17.200 Nicotine dependence, unspecified, uncomplicated; Z71.6 Tobacco abuse counseling; Z71.41 Alcohol abuse counseling and surveillance of alcoholic; Z79.899 Other long term (current) drug therapy; Z98.890 Other specified postprocedural states; Z87.01 Personal history of pneumonia (recurrent); Z87.442 Personal history of urinary calculi; Z86.59 Personal history of other mental and behavioral disorders; Z87.440 Personal history of urinary (tract) infections; Z98.51 Tubal ligation status; Z80.3 Family history of malignant neoplasm of breast; Z82.49 Family history of ischemic heart disease and other diseases of the circulatory system
CPT/HCPCS: 36415; 76700; 80048; 80053; 80074; 80306; 80320; 81001; 81256; 82140; 82607; 82728; 82747; 83540; 83550; 83615; 83690; 83735; 83883; 84100; 84132; 84165; 85025; 85610; 85730; 86038; 86334; 86431; 96361; 96372; 96374; 96375; 96376; 99285

== ENCOUNTER 2019-06-04 18:37 | Emergency (ER) | payer OTHER ==
[2019-06-04 18:51] VITALS: RESP 18
[2019-06-04] MEDS ORDERED: SODIUM CHLORIDE 0.9% 1,000 ML IV STA (19:48)
[2019-06-04] MEDS ORDERED: PANTOPRAZOLE 40 MG/10 ML VIAL IVP STA (19:48)
[2019-06-04] MEDS ORDERED: ONDANSETRON 4 MG/2 ML VIAL IVP STA (19:48)
[2019-06-04 20:01] LABS: Anisocytosis Slight; Basophils # (A) 0.1 k/uL (0-0.2); Basophils % (A) 1 %; Eosinophils # (A) 0.2 k/uL (0-0.7); Eosinophils % (A) 3 %; HCT 25.1 % (34.0-46.0); HGB 7.5 gm/dL (11.4-16.0); Hypochromasia Marked; Lymphocytes # (A) 1.4 k/uL (1.0-4.8); Lymphocytes % (A) 18 %; MCH 30.1 pg (25.0-35.0); MCHC 29.8 g/dL (31.0-37.0); MCV 101.1 fL (80.0-100.0); Macrocytosis Moderate; Mean Platelet Volume 9.3; Monocytes # (A) 0.4 k/uL (0-1.0); Monocytes % (A) 5 %; Neutrophils # (A) 5.6 k/uL (1.3-7.7); Neutrophils % (A) 71 %; RBC 2.49 m/uL (3.80-5.40); RDW 18.5 % (11.5-15.5); WBC 7.9 k/uL (3.8-10.6)
[2019-06-04 20:12] LABS: ALT 43 U/L (9-52); AST 101 U/L (14-36); African American GFR (CKD) >90 (>60 ml/min/1.73 sqM); Albumin 3.1 g/dL (3.5-5.0); Alkaline Phosphatase 161 U/L (38-126); Anion Gap 8 mmol/L; Blood Urea Nitrogen 11 mg/dL (7-17); Calcium 8.4 mg/dL (8.4-10.2); Carbon Dioxide 24 mmol/L (22-30); Chloride 102 mmol/L (98-107); Glucose 98 mg/dL (74-99); Potassium 4.3 mmol/L (3.5-5.1); Sodium 134 mmol/L (137-145); Total Bilirubin 5.8 mg/dL (0.2-1.3); Total Protein 6.3 g/dL (6.3-8.2)
[2019-06-04 20:13] LABS: Lactic Acid, Venous 1.4 mmol/L (0.7-2.0)
[2019-06-04 20:25] LABS: Appearance,Urine Clear (Clear); Bilirubin,Urine Negative (Negative); Blood,Urine Negative (Negative); Color,Urine Yellow; Glucose,Urine (UA) Negative (Negative); Ketones,Urine Negative (Negative); Leukocyte Esterase,Urine Trace (Negative); Mucus,Urine Occasional /hpf; Nitrite,Urine Negative (Negative); PH, Urine 5.5 (5.0-8.0); Protein,Urine Negative (Negative); RBC,Urine 1 /hpf (0-5); Specific Gravity,Urine 1.016 (1.001-1.035); Squamous Epithelial Cell,Urine 3 /hpf (0-4); WBC,Urine 1 /hpf (0-5)
[2019-06-04 20:25] LABS: INR 1.3 (<1.2); Partial Thromboplastin Time 28.3 sec (22.0-30.0); Prothrombin Time 13.7 sec (9.0-12.0)
[2019-06-04 20:49] LABS: Platelet Count 67 k/uL (150-450)
--- NOTE | 2019-06-04 21:09 | CT ---
EXAMINATION TYPE: CT abdomen pelvis w con DATE OF EXAM: 06/04/2019 COMPARISON: None HISTORY: Left upper quadrant abdominal pain. CT DLP: 1127.6 mGycm Automated exposure control for dose reduction was used. TECHNIQUE: Helical acquisition of images was performed from the lung bases through the pelvis. CONTRAST: Performed without Oral Contrast and with IV Contrast, patient injected with 100ml mL of Isovue 300. FINDINGS: There is a mild reticular infiltrate left lung base. The other visualized lung ramirez are clear. Ther e is no pleural effusion. Liver appears intact. Spleen is borderline enlarged and measures 14 cm. Stomach appears normal. There is no pancreatic mass. Gallbladder appears normal. There is no adrenal mass. Kidneys show satisfactory contrast opacification. There is no hydronephrosi s. Appendix appears normal. Ureters are not dilated. Bladder distends smoothly. There is no inguinal hernia. Uterus is retroverted. There is tiny amount of fluid in the cul-de-sac. There are multiple fluid-filled distended loops of small bowel throughout the abdomen. Small bowel me asures up to 3.3 cm. There is no sign of free air. There are some dilated umbilical veins. There are collateral venous channels to the right femoral vein. There are a few prominent veins at the gastroes ophageal junction. There is subcutaneous edema around the abdomen. Lumbar vertebra have fairly normal alignment. There is 5 mm anterior subluxation of L5 in relation to S1. Bony pelvis is intact. Posterior elements are intact. There is no lumbar compression fracture. IMPRESSION: THERE ARE ESOPHAGEAL VARICES AND UMBILICAL VARICES CONSISTENT WITH PORTAL VENOUS HYPERTENSION. MILD S PLENOMEGALY. NO DILATED DUCTS. GENERALIZED MILDLY DILATED SMALL BOWEL CONSISTENT WITH ILEUS. NO TRANSITION POINT. DEGENERATIVE FIRST-DEGREE L5-S1 SPONDYLOLISTHESIS WITHOUT SPONDYLOLYSIS. MINIMAL INFILTRATE LEFT LUNG BASE.
[2019-06-04] MEDS ORDERED: MORPHINE SULFATE 4 MG/ML SYRINGE IVP STA (21:51)
--- NOTE | 2019-06-04 22:07 | ED ---
Abdominal Pain HPI - General Chief Complaint: Abdominal Pain Stated Complaint: upper left quad pain Source: patient Mode of arrival: ambulatory Limitations: no limitations - History of Present Illness Initial Comments: The patient is a 44-year-old female with past medical history of alcohol abuse who presents to the emergency room with reported left upper quadrant abdominal pain. She also reports a history of a hiatal hernia. States the pain is present when she is lying flat. She states she feels better when she sits up. She describes it as a burning sensation. No history of peptic ulcer disease. She reports nausea without vomiting. States that she is able to hold in by mouth intake. She denies any hematemesis. She denies current alcohol use or NSAID use. Denies any diarrhea, melanotic stools, constipation or hematochezia. She denies any changes in her urination to include dysuria, hematuria or difficult voiding. No fevers or chills. She denies any abnormal vaginal bleeding or discharge. She was hospitalized recently for liver failure. States she's been taking all of her medications as directed. She I'll is with Dr. Forde. She has yet to follow up in office. She denies any chest pain or shortness of breath. No ripping or tearing sensation to her back. Denies concern for . There are no other alleviating, precipitating or modify ing factors - Related Data Home Medications Medication Instructions Recorded Confirmed Permethrin 5% Cream [Elimite] 5 cream TOPICAL TID 05/21/19 06/04/19 predniSONE 5 mg PO QAM 05/21/19 06/04/19 predniSONE See Taper PO DAILY 05/21/19 06/04/19 Previous Rx's Medication Instructions Recorded Acamprosate Calcium [Campral] 666 mg PO TID #180 tablet. 05/28/19 Cephalexin [Keflex] 500 mg PO Q8HR 7 Days #21 cap 05/28/19 Folic Acid 1 mg PO DAILY #30 tablet 05/28/19 Lactulose [Cephulac] 20 gm PO DAILY #300 ml 05/28/19 Nicotine 21Mg/24Hr Patch [Habitrol] 1 patch TRANSDERM DAILY #30 patch 05/28/19 Pantoprazole [Protonix] 40 mg PO DAILY #30 tablet. 05/28/19 Phytonadione Oral [Vitamin K Oral] 2.5 mg PO DAILY #15 oral.syrg 05/28/19 Thiamine [Vitamin B-1] 100 mg PO DAILY #30 tab 05/28/19 Triamcinolone 0.1% Cream [Kenalog 1 applic TOPICAL BID 7 Days #15 gm 05/28/19 0.1% Cream] Ibuprofen 400 mg PO Q6HR PRN #15 tablet 06/04/19 traMADol HCl [Ultram] 50 mg PO Q6H PRN #20 tab 06/04/19 Allergies Allergy/AdvReac Type Severity Reaction Status Date / Time No Known Allergies Allergy Verified 06/04/19 19:30 Review of Systems ROS Statement: Those systems with pertinent positive or pertinent negative responses have been documented in the HPI. ROS Other: All systems not noted in ROS Statement are negative. Past Medical History Past Medical History: Asthma, Pneumonia Additional Past Medical History / Comment(s): Slight jaundice about 5 yrs ago, pneumonia as a child, bronchitis, gastric ulcer, nephrolithiasis-passed stone on her own, UTI, currently being treated for cellulitis R lower leg and pt/family state she has other areas with skin issues, currently has lump R arm and R breast, R hip "pops" out occasionally. History of Any Multi-Drug Resistant Organisms: None Reported Past Surgical History: Tubal Ligation Additional Past Surgical History / Comment(s): EGD Past Anesthesia/Blood Transfusion Reactions: No Reported Reaction Past Psychological History: Depression Smoking Status: Current every day smoker Past Alcohol Use History: Abuse Past Drug Use History: None Reported - Past Family History Father History Unknown: Yes Mother Family Medical History: Hypertension General Exam Limitations: no limitations Course Vital Signs 06/04/19 06/04/19 06/04/19 18:47 22:19 22:56 Temperature 98.1 F 98.5 F Pulse Rate 69 68 68 Respiratory 18 18 18 Rate Blood Pressure 129/75 114/48 108/49 O2 Sat by Pulse 100 100 95 Oximetry Medical Decision Making - Medical Decision Making Upon arrival the patient is placed into room 2. She is hooked up to continuous pulse ox and family court justice. 12-lead EKG is performed the patient. A thorough history and physical exam was performed. Peripheral IV was established. The patient is given a liter bolus of 0.9% normal saline. She is also given 40 mg of Protonix informal grams of Zofran. I did recommend laboratory studies. I also recommended CT the patient's abdomen and pelvis. I reviewed her studies are remarkable for a hemoglobin of 7.5. Platelets 67. INR is 1.3. Total bilirubin of 5.8. AST 101, ALTs 43. Alk phos is 161. Lipase is elevated at 802. I did compare these results to the patient's previous admission. It does appear that majority of these labs are markedly improved. The patient does have an elevation in her lipase. CT of the abdomen and pelvis does not demonstrate any signs of acute pancreatitis. I detected the patient's Bayard score. It is 0. I did reevaluate the patient she admits to mild improvement in her symptoms. At this time he did provide the patient with 4 mg of morphine. She is reeva luated again and has improvement. The patient's abdomen continues to remain soft without peritoneal signs. I discussed diagnosis, differential treatment options. At this time the patient will be discharged home needs to follow-up with Dr. Forde she in office. She'll be given a prescription for Ultram. No history of seizure activity. Side effect profile is discuss with the patient. If the patient has any ill side effects, she should stop taking it. She should not work or drive. The patient may also take Motrin. She is tolerating by mouth intake. If she has any new or worsening symptoms she should return to the emergency room. Patient was in agreement with the treatment plan she was discharged home in stable condition - Lab Data Result diagrams: 06/04/19 19:25 06/04/19 19:25 Lab Results 06/04/19 06/04/19 06/04/19 Range/Units 19:25 19:25 19:25 WBC 7.9 (3.8-10.6) k/uL RBC 2.49 L (3.80-5.40) m/uL Hgb 7.5 L (11.4-16.0) gm/dL Hct 25.1 L (34.0-46.0) % MCV 101.1 H (80.0-100.0) fL MCH 30.1 (25.0-35.0) pg MCHC 29.8 L (31.0-37.0) g/dL RDW 18.5 H (11.5-15.5) % Plt Count 67 L (150-450) k/uL Neutrophils % 71 % Lymphocytes % 18 % Monocytes % 5 % Eosinophils % 3 % Basophils % 1 % Neutrophils # 5.6 (1.3-7.7) k/uL Lymphocytes # 1.4 (1.0-4.8) k/uL Monocytes # 0.4 (0-1.0) k/uL Eosinophils # 0.2 (0-0.7) k/uL Basophils # 0.1 (0-0.2) k/uL Manual Slide Review Performed Hypochromasia Marked Anisocytosis Slight Macrocytosis Moderate PT (9.0-12.0) sec INR (<1.2) APTT (22.0-30.0) sec Sodium 134 L (137-145) mmol/L Potassium 4.3 (3.5-5.1) mmol/L Chloride 102 (98-107) mmol/L Carbon Dioxide 24 (22-30) mmol/L Anion Gap 8 mmol/L BUN 11 (7-17) mg/dL Creatinine 0.45 L (0.52-1.04) mg/dL Est GFR (CKD-EPI)AfAm >90 (>60 ml/min/1.73 sqM) Est GFR (CKD-EPI)NonAf >90 (>60 ml/min/1.73 sqM) Glucose 98 (74-99) mg/dL Plasma Lactic Acid Tomasz 1.4 (0.7-2.0) mmol/L Calcium 8.4 (8.4-10.2) mg/dL Total Bilirubin 5.8 H (0.2-1.3) mg/dL AST 101 H (14-36) U/L ALT 43 (9-52) U/L Alkaline Phosphatase 161 H (38-126) U/L Ammonia 30 H (<30) umol/L Total Protein 6.3 (6.3-8.2) g/dL Albumin 3.1 L (3.5-5.0) g/dL Lipase 802 H (23-300) U/L Urine Color Urine Appearance (Clear) Urine pH (5.0-8.0) Ur Specific [place] (1.001-1.035) Urine Protein (Negative) Urine Glucose (UA) (Negative) Urine Ketones (Negative) Urine Blood (Negative) Urine Nitrite (Negative) Urine Bilirubin (Negative) Urine Urobilinogen (<2.0) mg/dL Ur Leukocyte Esterase (Negative) Urine RBC (0-5) /hpf Urine WBC (0-5) /hpf Ur Squamous Epith Cells (0-4) /hpf Urine Mucus (None) /hpf Urine HCG, Qual (Not Detectd) 06/04/19 06/04/19 06/04/19 Range/Units 19:25 20:18 20:18 WBC (3.8-10.6) k/uL RBC (3.80-5.40) m/uL Hgb (11.4-16.0) gm/dL Hct (34.0-46.0) % MCV (80.0-100.0) fL MCH (25.0-35.0) pg MCHC (31.0-37.0) g/dL RDW (11.5-15.5) % Plt Count (150-450) k/uL Neutrophils % % Lymphocytes % % Monocytes % % Eosinophils % % Basophils % % Neutrophils # (1.3-7.7) k/uL Lymphocytes # (1.0-4.8) k/uL Monocytes # (0-1.0) k/uL Eosinophils # (0-0.7) k/uL Basophils # (0-0.2) k/uL Manual Slide Review Hypochromasia Anisocytosis Macrocytosis PT 13.7 H (9.0-12.0) sec INR 1.3 H (<1.2) APTT 28.3 (22.0-30.0) sec Sodium (137-145) mmol/L Potassium (3.5-5.1) mmol/L Chloride (98-107) mmol/L Carbon Dioxide (22-30) mmol/L Anion Gap mmol/L BUN (7-17) mg/dL Creatinine (0.52-1.04) mg/dL Est GFR (CKD-EPI)AfAm (>60 ml/min/1.73 sqM) Est GFR (CKD-EPI)NonAf (>60 ml/min/1.73 sqM) Glucose (74-99) mg/dL Plasma Lactic Acid Tomasz (0.7-2.0) mmol/L Calcium (8.4-10.2) mg/dL Total Bilirubin (0.2-1.3) mg/dL AST (14-36) U/L ALT (9-52) U/L Alkaline Phosphatase (38-126) U/L Ammonia (<30) umol/L Total Protein (6.3-8.2) g/dL Albumin (3.5-5.0) g/dL Lipase (23-300) U/L Urine Color Yellow Urine Appearance Clear (Clear) Urine pH 5.5 (5.0-8.0) Ur Specific [place] 1.016 (1.001-1.035) Urine Protein Negative (Negative) Urine Glucose (UA) Negative (Negative) Urine Ketones Negative (Negative) Urine Blood Negative (Negative) Urine Nitrite Negative (Negative) Urine Bilirubin Negative (Negative) Urine Urobilinogen 3.0 (<2.0) mg/dL Ur Leukocyte Esterase Trace H (Negative) Urine RBC 1 (0-5) /hpf Urine WBC 1 (0-5) /hpf Ur Squamous Epith Cells 3 (0-4) /hpf Urine Mucus Occasional H (None) /hpf Urine HCG, Qual Not Detected (Not Detectd) Disposition Clinical Impression: Abdominal pain, Pancreatitis Disposition: HOME SELF-CARE Condition: Stable Instructions (If sedation given, give patient instructions): Pancreatitis (ED), Abdominal Pain (ED) Additional Instructions: Please follow-up with Dr. Forde in office within one week. Return to the emergency room for any new or worsening symptoms. Alternate taking the tramadol and the Motrin. Prescriptions: Ibuprofen 400 mg PO Q6HR PRN #15 tablet PRN Reason: Pain traMADol HCl [Ultram] 50 mg PO Q6H PRN #20 tab PRN Reason: Pain Is patient prescribed a controlled substance at d/c from ED?: No Referrals: Kevin Gordon MD [Primary Care Provider] - 1-2 days Time of Disposition: 22:07
[2019-06-04 22:20] VITALS: PULSE 68
[2019-06-04 22:58] VITALS: BP 108/49; TEMP 98.5
== END 2019-06-04 22:54 | disposition home or self-care (01) ==
LOC: EC 18:37
DX: K85.90 Acute pancreatitis without necrosis or infection, unspecified (principal); R74.8 Abnormal levels of other serum enzymes; F17.200 Nicotine dependence, unspecified, uncomplicated; L03.115 Cellulitis of right lower limb; Z79.52 Long term (current) use of systemic steroids
CPT/HCPCS: 36415; 80053; 82140; 83605; 83690; 85025; 85610; 85730; 81001; 81025; 74177; 96374; 96375 ×2; 96361 ×2; 99284; J2270; J2405; C9113; Q9967; 96372

== ENCOUNTER → 2019-07-23 | Outpatient (CLI) | payer OTHER ==
--- NOTE | 2019-07-23 08:56 | US ---
EXAMINATION TYPE: US abdomen limited DATE OF EXAM: 07/23/2019 COMPARISON: CT abdomen and pelvis June 04, 2019 CLINICAL HISTORY: R18.8 Other ascites. Patient states having liver disease. Patient states she has g ained 15 lbs in one month. NPO. No prior surgeries. EXAM MEASUREMENTS: Liver Length: 11.9 cm Gallbladder Wall: 0.2 cm CBD: 0.4 cm Right Kidney: 12.3 x 5.8 x 5.1 cm Pancreas: Tail obscured by overlying bowel gas Liver: Appears nodular and small in size. Cystic appearing lesion visualized in right lobe = 0.6 x 0.8 x 0.7 cm. Possible recanalization of umbilical vein. Gallbladder: wnl Evidence for sonographic Strauss's sign: neg CBD: wnl Right Kidney: wnl Visualized pancreas is unremarkable. IVC is seen in the hepatic dome. Visualized liver shows some het erogeneity with slightly lobulated peripheral contour. Corresponding to CT there is prominent vessels in the region of tye hepatis consistent with cavernous transformation of portal vein. No portal ve in thrombus identified. IMPRESSION: Correlating with CT there is probable cirrhosis and underlying portal venous hypertension . Splenomegaly is seen measuring 14 to 15 cm long axis axial image 14. There is cavernous transformat ion of portal vein thought present without portal vein thrombus on current study or recent CT. Mild g allbladder wall thickening but present on ultrasound and CT follow-up be product of underlying liver disease. Trace ascites near the liver noted towards end of study the clearly seen on recent CT. Stric t clinical correlation is advised.
[2019-07-23 10:00] LABS: ALT 39 U/L (9-52); AST 73 U/L (14-36); African American GFR (CKD) >90 (>60 ml/min/1.73 sqM); Albumin 2.8 g/dL (3.5-5.0); Alkaline Phosphatase 221 U/L (38-126); Anion Gap 9 mmol/L; Bilirubin, Delta 2.1 mg/dL (0.0-0.2); Bilirubin,Unconjugated 4.4 mg/dL (0.0-1.1); Blood Urea Nitrogen 9 mg/dL (7-17); Carbon Dioxide 24 mmol/L (22-30); Chloride 106 mmol/L (98-107); Potassium 3.3 mmol/L (3.5-5.1); Sodium 139 mmol/L (137-145); Total Bilirubin 6.5 mg/dL (0.2-1.3); Total Protein 5.8 g/dL (6.3-8.2)
== END | disposition home or self-care (01) ==
LOC: RADUSWWP 07:35
PROVIDERS: ATTEND Family Medicine
DX: K82.8 Other specified diseases of gallbladder (principal); I87.8 Other specified disorders of veins; R16.1 Splenomegaly, not elsewhere classified; I10 Essential (primary) hypertension; Z79.899 Other long term (current) drug therapy
CPT/HCPCS: 76705; 80051; 80076; 82140; 82565; 84520

== ENCOUNTER 2019-10-20 13:28 | Inpatient (IN) | payer BC, OTHER ==
[2019-10-20] MEDS ORDERED: ALPRAZolam 0.25 MG TAB PO PRN (15:40)
[2019-10-20] MEDS ORDERED: guaiFENesin SYRUP 100MG/5ML 200 MG/10 ML CUP PO PRN (15:41)
[2019-10-20 15:46] LABS: ALT 20 U/L (4-34); AST 48 U/L (14-36); African American GFR (CKD) >90 (>60 ml/min/1.73 sqM); Albumin 3.2 g/dL (3.5-5.0); Alkaline Phosphatase 214 U/L (38-126); Amylase 34 U/L (30-110); Anion Gap 6 mmol/L; Blood Urea Nitrogen 5 mg/dL (7-17); Carbon Dioxide 27 mmol/L (22-30); Chloride 104 mmol/L (98-107); Glucose 90 mg/dL (74-99); Non-African American GFR(CKD) >90 (>60 ml/min/1.73 sqM); Potassium 3.4 mmol/L (3.5-5.1); Sodium 137 mmol/L (137-145); Total Bilirubin 3.8 mg/dL (0.2-1.3)
[2019-10-20 15:48] LABS: Lactic Acid, Venous 1.4 mmol/L (0.7-2.0)
[2019-10-20 15:57] LABS: Anisocytosis Moderate; HCT 22.3 % (34.0-46.0); Hypochromasia Marked; MCH 21.2 pg (25.0-35.0); MCHC 27.7 g/dL (31.0-37.0); MCV 76.5 fL (80.0-100.0); Mean Platelet Volume 7.4; Microcytosis Moderate; RBC 2.92 m/uL (3.80-5.40); RDW 21.6 % (11.5-15.5); WBC 7.4 k/uL (3.8-10.6)
[2019-10-20] MEDS ORDERED: AZITHROMYCIN 500 MG in SODIUM CHLORIDE 0.9% 250 ML IVPB SCH (16:00)
[2019-10-20] MEDS ORDERED: FUROSEMIDE 20 MG TAB PO SCH (16:00)
[2019-10-20 16:07] LABS: HGB 6.2 gm/dL (11.4-16.0)
--- NOTE | 2019-10-20 16:16 | XR ---
EXAMINATION TYPE: XR chest 1V DATE OF EXAM: 10/20/2019 CLINICAL HISTORY: Cough for 2 weeks. History of COPD. TECHNIQUE: Single frontal view of the chest is obtained. COMPARISON: None FINDINGS: There is no focal air space opacity, pleural effusion, or pneumothorax seen. The cardiac silhouette size is upper limits of normal. The osseous structures are intact. IMPRESSION: No suspicious acute pulmonary process.
[2019-10-20] MEDS: BENZONATATE 100 MG CAP PO SCH ×2 (17:00→20:19)
[2019-10-20] MEDS: methylPREDNISolone SOD SUCCI 125 MG/2 ML VIAL IV SCH (17:00)
[2019-10-20 17:12] LABS: Lymphocytes # (M) 1.33 k/uL (1.0-4.8); Neutrophils # (M) 5.48 k/uL (1.3-7.7); Neutrophils % (M) 74 %; Nucleated Red Blood Cells 0 /100 WBC (0-0); Platelet Count 88 k/uL (150-450); Poikilocytosis (M) Present; Polychromasia Present; Target Cells Present; Tear Drop Cells Present; Total Cells Counted 100
[2019-10-20] MEDS: LACTULOSE 20 GM/30 ML CUP PO SCH ×2 (17:43→20:19)
--- NOTE | 2019-10-20 18:29 | US ---
EXAMINATION TYPE: US abdomen limited DATE OF EXAM: 10/20/2019 COMPARISON: US CLINICAL HISTORY: ascites. Ascites. Hx cirrhosis. Scanned all four quadrants of the abdomen. No fluid is seen at this time. IMPRESSION: Limited exam shows no evidence of any ascites fluid.
[2019-10-20] MEDS: RIFAXIMIN 550 MG TABLET PO SCH (20:19)
[2019-10-20] MEDS: QUEtiapine 50 MG TAB PO SCH (20:19)
[2019-10-20] MEDS: POTASSIUM CHLORIDE ER 10 MEQ TAB.ER.PRT PO SCH (20:19)
[2019-10-21] MEDS: methylPREDNISolone SOD SUCCI 125 MG/2 ML VIAL IV SCH ×3 (00:09→16:30)
[2019-10-21] MEDS: FUROSEMIDE 10 MG/ML 4 ML VIAL IV SCH ×3 (00:09→20:57)
[2019-10-21] MEDS: POTASSIUM CHLORIDE ER 10 MEQ TAB.ER.PRT PO SCH ×2 (08:15→20:58)
[2019-10-21] MEDS: BENZONATATE 100 MG CAP PO SCH ×3 (08:15→20:58)
[2019-10-21] MEDS: ATENOLOL 25 MG TAB PO SCH (08:16)
[2019-10-21] MEDS: LACTULOSE 20 GM/30 ML CUP PO SCH ×3 (08:16→20:57)
[2019-10-21] MEDS: RIFAXIMIN 550 MG TABLET PO SCH ×2 (08:16→20:58)
--- NOTE | 2019-10-21 09:02 | HP ---
HISTORY AND PHYSICAL A 44-year-old white female who came into the hospital with cough, congestion, shortness of breath, failing outpatient treatment with steroids and antibiotics. She has had a 17 pounds weight gain from cirrhotic liver in the last 2 weeks. She has nonstop cough, congestion, shortness of breath. She is saturating in the low 90s on room air and unable to stop her cough. She is admitted with COPD exacerbation, tracheobronchitis versus community-acquired pneumonia and worsening cirrhosis with a large buildup of fluid and edema in her lower extremities. She needs some IV Lasix and IV steroids, IV antibiotics, consultation from Pulmonary and GI. MEDICATIONS: Tenormin 25 mg a day for tachycardia, azithromycin, Rocephin, Tessalon Perles, started on Lasix 40 mg IV q.12 hours, methylprednisolone 60 mg IV q.8, Seroquel 50 q.h.s., Xifaxan 550 b.i.d. She has severe anemia of 6.2 admitted. Blood transfusions have been ordered. PAST MEDICAL HISTORY: Cirrhosis of the liver, end-stage liver disease, severe anemia, thrombocytopenia, worsening cirrhosis, history of alcohol abuse but has been off alcohol for 2-3 months, hyper ammoniemia with 34 level, albumin low at 3.2. 14 POINT REVIEW OF SYSTEMS: Negative except for as mentioned in HPI. Temperature is 98, pulse 79 to 84, respiratory rate 25 to 35, blood pressure 120s/70s. She is 93% on room air on admission. LUNGS: Show scattered rhonchi and wheeze x4, nonstop cough. CARDIOVASCULAR: Tachycardic. GI: Distended due to obesity. Positive fluid wave. HEMATOLOGY: 2 to 3+ pedal edema. ASSESSMENT: Worsening cirrhosis, tracheobronchitis, chronic obstructive pulmonary disease exacerbation, hypoalbuminemia, hyper ammoniemia. She is negative for influenza. Continue with steroids, antibiotics, updraft. Blood transfusions for severe anemia of 6.2. Hematology consult and consult with GI also to rule out any significant blood loss. Will consult Pulmonary, also. MMODL / IJN: [id number] /
[2019-10-21 09:17] LABS: ALT 21 U/L (4-34); AST 47 U/L (14-36); African American GFR (CKD) >90 (>60 ml/min/1.73 sqM); Albumin 3.2 g/dL (3.5-5.0); Alkaline Phosphatase 169 U/L (38-126); Anion Gap 8 mmol/L; Blood Urea Nitrogen 9 mg/dL (7-17); Calcium 7.8 mg/dL (8.4-10.2); Carbon Dioxide 26 mmol/L (22-30); Chloride 105 mmol/L (98-107); Glucose 158 mg/dL (74-99); Non-African American GFR(CKD) >90 (>60 ml/min/1.73 sqM); Potassium 3.2 mmol/L (3.5-5.1); Sodium 139 mmol/L (137-145); Total Bilirubin 5.8 mg/dL (0.2-1.3); Total Protein 6.2 g/dL (6.3-8.2)
[2019-10-21 09:30] LABS: Anisocytosis Moderate; HCT 28.8 % (34.0-46.0); Hypochromasia Marked; MCHC 28.6 g/dL (31.0-37.0); MCV 77.1 fL (80.0-100.0); Mean Platelet Volume 7.8; Microcytosis Moderate; Poikilocytosis Marked; RBC 3.74 m/uL (3.80-5.40); RDW 21.3 % (11.5-15.5); WBC 8.7 k/uL (3.8-10.6)
[2019-10-21 09:32] LABS: Platelet Count 83 k/uL (150-450)
[2019-10-21 09:33] LABS: HGB 8.2 gm/dL (11.4-16.0)
[2019-10-21 09:42] LABS: INR 1.4 (<1.2)
[2019-10-21 10:01] LABS: Lymphocytes # (M) 1.13 k/uL (1.0-4.8); Monocytes # (M) 0.35 k/uL (0-1.0); Neutrophils # (M) 7.22 k/uL (1.3-7.7); Neutrophils % (M) 83 %; Nucleated Red Blood Cells 0 /100 WBC (0-0); Total Cells Counted 100
[2019-10-21 10:02] LABS: Ovalocytes Present; Tear Drop Cells Present
[2019-10-21] MEDS ORDERED: IPRATROPIUM-ALBUTEROL 3 ML NEB INHALATION PRN (10:38)
[2019-10-21] MEDS: IPRATROPIUM-ALBUTEROL 3 ML NEB INHALATION SCH ×3 (10:49→20:46)
[2019-10-21] MEDS ORDERED: PEG 3350-NA SULF,BICARB,CL/KCL 4,000 ML BOTTLE PO ONE (15:06)
[2019-10-21] MEDS: AZITHROMYCIN 500 MG TAB PO SCH (16:30)
--- NOTE | 2019-10-21 16:57 | P.CONS ---
History of Present Illness - Reason for Consult Consult date: 10/21/19 ANEMIA Requesting physician: Kevin Gordon - Chief Complaint COUGH, CONGESTION, DYSPNEA - History of Present Illness Patient is 44 year old female who present to the emergency with complaints of cough, congestion, dyspnea, and fatigue, being treated by PCP for respiratory infection, symptoms persisted, so she was sent for hospital for further work up and treatment. History of COPD, cirrhosis of liver, iron deficiency anemia, hemorrhoids, gastric ulcers, hiatal hernia. We have been asked to see the patient because of anemia, hemoglobin 6.2 on admit, she has been transfused with 2 units with appropriate response in hemoglobin. She denied gross bleeding. Recent treatment for upper respiratory infection. 10 point review of systems otherwise negative. Review of Systems 14 point review denies except the following cough, minor fatigue Past Medical History Past Medical History: Asthma, Blood Disorder, Liver Disease, Osteoarthritis (OA), Pneumonia, Renal Disease Additional Past Medical History / Comment(s): ETOH abuse with past withdrawals/DTs-pt has not drank since May 2019, cirrhosis, hyperbilirubinemia, hypercoagulopathy, thrombocytopenia, hyperammonemia, occasi onal bilateral leg edema and currently has edema, arthritis in multiple joints, R hip "pops" out at times, gastric ulcer, UTIs, kidney stones which she passed, bronchitis, pneumonia as a child History of Any Multi-Drug Resistant Organisms: None Reported Past Surgical History: Tubal Ligation Additional Past Surgical History / Comment(s): EGD, liver biopsy Past Anesthesia/Blood Transfusion Reactions: No Reported Reaction Smoking Status: Current every day smoker - Past Family History Father History Unknown: Yes Mother Family Medical History: Hypertension Medications and Allergies Home Medications Medication Instructions Recorded Confirmed Type predniSONE 5 mg PO QAM 05/21/19 10/20/19 History ALPRAZolam [Xanax] 0.25 mg PO DAILY PRN 10/20/19 10/20/19 History Atenolol [Tenormin] 25 mg PO DAILY 10/20/19 10/20/19 History Furosemide [Lasix] 20 mg PO BID 10/20/19 10/20/19 History Potassium Chloride ER [K-Dur 10] 10 meq PO BID 10/20/19 10/20/19 History QUEtiapine FUMARATE 50 mg PO HS 10/20/19 10/20/19 History Allergies Allergy/AdvReac Type Severity Reaction Status Date / Time No Known Allergies Allergy Verified 10/20/19 14:29 Physical Exam Vitals: Vital Signs Temp Pulse Pulse Resp BP BP BP 10/21/19 10:58 80 10/21/19 10:51 84 10/21/19 05:01 98.2 F 84 20 127/69 10/21/19 04:39 98.2 F 84 20 127/67 10/21/19 02:23 97.8 F 84 20 112/61 10/21/19 01:53 98.2 F 79 18 124/75 10/21/19 01:43 97.9 F 79 18 124/71 10/21/19 01:40 97.9 F 81 18 124/71 10/21/19 00:07 97.8 F 69 18 123/71 10/21/19 00:05 97.8 F 70 18 123/71 10/20/19 22:01 98.6 F 82 20 122/69 10/20/19 21:31 98.8 F 84 18 131/66 10/20/19 21:21 98.6 F 80 20 100/56 10/20/19 21:05 98.6 F 85 20 100/56 10/20/19 14:25 99.0 F 92 17 137/76 Pulse Ox 10/21/19 10:58 10/21/19 10:51 10/21/19 05:01 97 10/21/19 04:39 97 10/21/19 02:23 10/21/19 01:53 95 10/21/19 01:43 95 10/21/19 01:40 96 10/21/19 00:07 10/21/19 00:05 10/20/19 22:01 10/20/19 21:31 94 L 10/20/19 21:21 97 10/20/19 21:05 97 10/20/19 14:25 98 Intake and Output 10/20/19 10/21/19 10/21/19 22:59 06:59 14:59 Intake Total 440 720 200 Balance 440 720 200 Intake: Oral 440 100 200 Blood Product 0 620 Rc As-1 Unit 0 310 [id number] Rc Pheresis As-3 Unit 310 [id number] Other: # Voids 1 1 - Constitutional General appearance: average body habitus, cooperative, no acute distress - EENT Eyes: EOMI, dentition normal, scleral icterus, normal appearance ENT: hearing grossly normal, normal oropharynx - Neck Neck: no lymphadenopathy, normal ROM - Respiratory barking cough Respiratory: bilateral: CTA - Cardiovascular Rhythm: regular Heart sounds: normal: S1, S2 Abnormal Heart Sounds: systolic murmur systolic murmur (1) Type: holo Grade: III/ foot Peripheral Edema: bilateral: Trace (lower extremeties) - Gastrointestinal General gastrointestinal: normal bowel sounds, soft, splenomegaly (2 FB on deep inspiration) - Integumentary Integumentary: normal - Neurologic Neurologic: CNII-XII intact - Musculoskeletal Musculoskeletal: strength equal bilaterally - Psychiatric Psychiatric: A&O x's 3, appropriate affect, intact judgment & insight Results CBC & Chem 7: 10/21/19 08:23 10/21/19 08:23 Labs: Abnormal Lab Results - Last 24 Hours (Table) 10/20/19 10/20/19 10/20/19 Range/Units 15:17 15:17 15:21 RBC 2.92 L (3.80-5.40) m/uL Hgb 6.2 L* (11.4-16.0) gm/dL Hct 22.3 L (34.0-46.0) % MCV 76.5 L (80.0-100.0) fL MCH 21.2 L (25.0-35.0) pg MCHC 27.7 L (31.0-37.0) g/dL RDW 21.6 H (11.5-15.5) % Plt Count 88 L (150-450) k/uL PT (9.0-12.0) sec INR (<1.2) Potassium 3.4 L (3.5-5.1) mmol/L BUN 5 L (7-17) mg/dL Glucose (74-99) mg/dL Calcium 8.0 L (8.4-10.2) mg/dL Total Bilirubin 3.8 H (0.2-1.3) mg/dL AST 48 H (14-36) U/L Alkaline Phosphatase 214 H (38-126) U/L Ammonia 34 H (<30) umol/L Total Protein 6.0 L (6.3-8.2) g/dL Albumin 3.2 L (3.5-5.0) g/dL Crossmatch 10/20/19 10/21/19 10/21/19 Range/Units 16:36 08:23 08:23 RBC 3.74 L (3.80-5.40) m/uL Hgb 8.2 L D (11.4-16.0) gm/dL Hct 28.8 L (34.0-46.0) % MCV 77.1 L (80.0-100.0) fL MCH 22.0 L (25.0-35.0) pg MCHC 28.6 L (31.0-37.0) g/dL RDW 21.3 H (11.5-15.5) % Plt Count 83 L (150-450) k/uL PT (9.0-12.0) sec INR (<1.2) Potassium (3.5-5.1) mmol/L BUN (7-17) mg/dL Glucose (74-99) mg/dL Calcium (8.4-10.2) mg/dL Total Bilirubin (0.2-1.3) mg/dL AST (14-36) U/L Alkaline Phosphatase (38-126) U/L Ammonia 41 H (<30) umol/L Total Protein (6.3-8.2) g/dL Albumin (3.5-5.0) g/dL Crossmatch See Detail 10/21/19 10/21/19 Range/Units 08:23 08:23 RBC (3.80-5.40) m/uL Hgb (11.4-16.0) gm/dL Hct (34.0-46.0) % MCV (80.0-100.0) fL MCH (25.0-35.0) pg MCHC (31.0-37.0) g/dL RDW (11.5-15.5) % Plt Count (150-450) k/uL PT 14.0 H (9.0-12.0) sec INR 1.4 H (<1.2) Potassium 3.2 L (3.5-5.1) mmol/L BUN (7-17) mg/dL Glucose 158 H (74-99) mg/dL Calcium 7.8 L (8.4-10.2) mg/dL Total Bilirubin 5.8 H (0.2-1.3) mg/dL AST 47 H (14-36) U/L Alkaline Phosphatase 169 H (38-126) U/L Ammonia (<30) umol/L Total Protein 6.2 L (6.3-8.2) g/dL Albumin 3.2 L (3.5-5.0) g/dL Crossmatch Chest x-ray: report reviewed US - abdomen: report reviewed Assessment and Plan (1) Anemia Narrative/Plan: Patient admitted with hemoglobin of 6.2, s/p 2 units PRBC. Transfuse to keep hemoglobin >7. history of anemia 26 years ago during , hemorrhoids, gastric ulcers, possible varices. GI consulted. 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 platelets are stable, improved from previous visits Monitor labs Current Visit: Yes Status: Chronic Priority: Medium Code(s): D69.6 - THROMBOCYTOPENIA, UNSPECIFIED SNOMED Code(s): 160546283 (3) Hyperbilirubinemia Narrative/Plan: Known ETOH liver cirrhosis but, patient has maintained abstinence Bilirubin upon admission better than past admissions. Recognized slight rise in bilirubin, possible hemolysis ? Hemolysis workup and lab daily. Current Visit: Yes Status: Acute Priority: Medium Code(s): E80.6 - OTHER DISORDERS OF BILIRUBIN METABOLISM SNOMED Code(s): 71033669 (4) Coagulopathy Narrative/Plan: Coagulopathy secondary to cirrhosis of liver, INR 1.4, no acute intervention, procedures are typically done as long as INR <1.5, vit K IV recommended if needed Continue to monitor Current Visit: Yes Status: Acute Priority: Medium Code(s): D68.9 - COAGULATION DEFECT, UNSPECIFIED SNOMED Code(s): 17387909
[2019-10-21 17:27] LABS: Bilirubin, Conjugated 0.1 mg/dL (0.0-0.3); Bilirubin,Unconjugated 3.1 mg/dL (0.0-1.1); Total Bilirubin 5.2 mg/dL (0.2-1.3)
--- NOTE | 2019-10-21 17:32 | CONS ---
CONSULTATION DATE OF DICTATION: 10/21/2019 REASON FOR CONSULTATION: Severe symptomatic anemia and history of alcoholic cirrhosis of the liver. HISTORY OF PRESENT ILLNESS: The patient is a 44-year-old pleasant white female who came into the emergency room yesterday complaining of cough for the last few days' duration. She has been having lower extremity swelling and went and saw Dr. Gordon and was started on Lasix 20 mg daily as well as potassium supplements. The patient is known to have a history of alcoholic cirrhosis of the liver with last hospitalization in June of 2008 with acute alcoholic hepatitis. She came into the emergency room yesterday and was noted to have a hemoglobin of 6.2 g/dL and received one unit of blood transfusion. We are hence consulted in regards to this issue. The patient, however, denies any abdominal pain, reports no nausea or vomiting; no rectal bleeding or melena. She does recall having EGD and colonoscopy in 2004. The patient is known to have alcoholic cirrhosis of the liver, has history of heavy alcohol abuse for more than 20 years' duration. She states she quit drinking about 6 months ago following her last hospitalization. During this hospitalization she was noted to have elevated LFTs and mild jaundice with a bilirubin of 5.8, AST and ALT of 47 and 21, respectively, and alkaline phosphatase 169. Amylase and lipase are normal. PAST MEDICAL HISTORY: Her past medical history is significant for: 1. History of heavy alcohol abuse in the past. 2. Alcoholic cirrhosis of the liver. MEDICATIONS: Medications at home include Lasix 20 mg daily and potassium chloride , quetiapine, prednisone, Xanax and Tenormin. ALLERGIES: NONE. SOCIAL HISTORY: Alcohol use as mentioned above. Quit drinking about 6 months ago. No smoking. FAMILY HISTORY: Unremarkable. REVIEW OF SYSTEMS: CARDIOPULMONARY: No chest pain or shortness of breath. GENITOURINARY: No dysuria or hematuria. MUSCULOSKELETAL: Unremarkable. SKIN: Unremarkable. ENDOCRINE: Unremarkable. PSYCHIATRIC: Unremarkable. NEUROLOGY: Unremarkable. ENT/VISION: Unremarkable. CONSTITUTIONAL: No recent weight loss. No fever, chills, night sweats. PHYSICAL EXAMINATION: She appears comfortable. No apparent distress. Vital signs are stable. Blood pressure 133/86, pulse rate 82 per minute and afebrile. Temperature 98.8. HEENT examination unremarkable. Conjunctivae pink. Sclerae slightly icteric. Oral cavity no lesions. NECK: No JVD or lymph node enlargement. CHEST: Clear to auscultation. HEART: Regular rate and rhythm. ABDOMEN: Soft. Bowel sounds are positive. Non-tender, non-distended. Liver and spleen were not palpable. EXTREMITIES: No pedal edema. SKIN: No rashes. NEUROLOGIC: Alert and oriented x3. No focal deficits. LABS/IMAGING: WBC 7.4, hemoglobin 6.2, platelets 88,000. INR is 1.4. Bilirubin 3.8, AST 48, ALT 20, alkaline phosphatase 214. Amylase and lipase are normal. Ultrasound of the abdomen done yesterday showed no evidence of ascites. IMPRESSION: 1. Severe symptomatic anemia; severe microcytic hypochromic anemia with a hemoglobin of 6.2 g/dL, consistent with iron deficiency anemia, most likely secondary to occult gastrointestinal blood loss. Possibility of chronic liver disease contributing to the anemia also needs to be considered. 2. Thrombocytopenia secondary to cirrhosis of the liver. 3. Mild secondary to advanced liver disease. 4. History of heavy alcohol abuse; quit drinking 6 months ago. 5. Mild elevation of serum transaminases and bilirubin up to 5.8, all consistent with acute alcoholic hepatitis superimposed on chronic alcoholic liver disease. RECOMMENDATIONS: 1. In regards to the anemia, we will investigate at this time. We will proceed with EGD and colonoscopy tomorrow. I discussed with the patient risks, benefits and complications, and she is agreeable to it. 2. Continue to remain abstinent from alcohol. 3. Monitor LFTs closely. 4. Patient started on lactulose as well as Xifaxan for elevated ammonia level, though clinically does not have any evidence of hepatic encephalopathy. 5. We will follow with you closely. Thank you for this consultation. MMODL / IJN: [id number] /
[2019-10-21] MEDS: QUEtiapine 50 MG TAB PO SCH (20:58)
[2019-10-21 21:43] VITALS: RESP 16
[2019-10-22] MEDS: methylPREDNISolone SOD SUCCI 125 MG/2 ML VIAL IV SCH ×3 (00:11→15:04)
[2019-10-22 01:27] LABS: % Iron Saturation 3.9 (12.00-45.00); Ferritin 5.6 ng/mL (10.0-291.0)
[2019-10-22 07:59] LABS: ALT 27 U/L (4-34); AST 61 U/L (14-36); African American GFR (CKD) >90 (>60 ml/min/1.73 sqM); Albumin 3.1 g/dL (3.5-5.0); Alkaline Phosphatase 137 U/L (38-126); Anion Gap 7 mmol/L; Blood Urea Nitrogen 7 mg/dL (7-17); Calcium 8.1 mg/dL (8.4-10.2); Carbon Dioxide 30 mmol/L (22-30); Chloride 103 mmol/L (98-107); Glucose 130 mg/dL (74-99); Non-African American GFR(CKD) >90 (>60 ml/min/1.73 sqM); Sodium 140 mmol/L (137-145); Total Bilirubin 5.5 mg/dL (0.2-1.3); Total Protein 6.1 g/dL (6.3-8.2)
[2019-10-22 08:14] LABS: Anisocytosis Moderate; Basophils % (A) 0 %; Eosinophils % (A) 0 %; HCT 25.2 % (34.0-46.0); HGB 7.4 gm/dL (11.4-16.0); Hypochromasia Marked; Lymphocytes # (A) 1.1 k/uL (1.0-4.8); Lymphocytes % (A) 10 %; MCH 22.9 pg (25.0-35.0); MCHC 29.5 g/dL (31.0-37.0); MCV 77.5 fL (80.0-100.0); Mean Platelet Volume 7.3; Microcytosis Moderate; Monocytes # (A) 0.3 k/uL (0-1.0); Monocytes % (A) 3 %; Neutrophils # (A) 8.9 k/uL (1.3-7.7); Neutrophils % (A) 86 %; Poikilocytosis Marked; RBC 3.25 m/uL (3.80-5.40); RDW 21.1 % (11.5-15.5); WBC 10.4 k/uL (3.8-10.6)
[2019-10-22 08:17] LABS: Platelet Count 87 k/uL (150-450)
[2019-10-22] MEDS: IPRATROPIUM-ALBUTEROL 3 ML NEB INHALATION SCH ×4 (08:31→20:14)
[2019-10-22] MEDS: POTASSIUM CHLORIDE ER 10 MEQ TAB.ER.PRT PO SCH ×4 (08:59→20:42)
[2019-10-22] MEDS: LACTULOSE 20 GM/30 ML CUP PO SCH ×3 (08:59→22:28)
[2019-10-22] MEDS: FUROSEMIDE 10 MG/ML 4 ML VIAL IV SCH ×2 (08:59→20:39)
[2019-10-22] MEDS: RIFAXIMIN 550 MG TABLET PO SCH ×2 (09:00→20:39)
[2019-10-22] MEDS: ATENOLOL 25 MG TAB PO SCH (09:00)
[2019-10-22] MEDS: BENZONATATE 100 MG CAP PO SCH ×3 (09:00→22:28)
[2019-10-22] MEDS ORDERED: LACTATED RINGERS 1,000 ML IV ONE (11:42)
[2019-10-22] MEDS ORDERED: PROPOFOL 10 MG/ML 20 ML VIAL IV ONE (11:51)
[2019-10-22] MEDS ORDERED: LIDOCAINE 1% INJ 10MG/ML (20 ML MDV) ONE (11:51)
--- NOTE | 2019-10-22 12:11 | P.PCN ---
Date of Procedure: 10/22/19 Procedure(s) Performed: Brief history: Patient is a pleasant 44-year-old white female with history of alcohol cirrhosis of the liver and the hospital with severe symptomatic anemia and hemoglobin of 6. requiring 2 units of blood transfusion. IV in the distal consistent with iron deficiency anemia. She is hence scheduled for an elective upper endoscopy as well as colonoscopy as a part of evaluation of evaluation of iron deficiency anemia Procedure performed: Esophagogastroduodenoscopy with biopsy Colonoscopy Preoperative diagnosis: Iron deficiency anemia Alcoholic Liver cirrhosis Anesthesia: MAC Procedure: After informed consent was obtained from the patient was brought into the endoscopy unit and IV sedation was administered by anesthesia under continuous monitoring. Initially upper endoscopy was done. The Olympus GF 160 video endoscope was inserted inserted into the mouth and esophagus intubated without any difficulty and was gradually advanced into the stomach and duodenum and carefully examined. The bulb and second part of the duodenum appeared normal. The scope was then withdrawn into the stomach adequately insufflated with air and upon careful examination the antrum had scattered erosions and biopsies were done from this area. The body, cardia and fundus appeared normal. The scope was then withdrawn into the esophagus. The GE junction was located at 40 cm to the incisors. there were linear erosions in the distal esophagus consistent with LA grade B reflux esophagitis. Esophagus esophagus appeared normal and the patient tolerated the procedure well. At this time the patient continued to remain sedation. Initial digital rectal examination was normal. Olympus CF 160 video colonoscope was then inserted into the rectum and gradually advanced to the cecum without any difficulty. Careful examination was performed as the scope was gradually being withdrawn. The prep was excellent. The cecum, ascending colon, transverse colon, descending colon, sigmoid colon and rectum appeared normal. Retroflexion was performed in the rectum andsmall internal hemorrhoids were noted. Patient tolerated the procedure well. Impression: 1. Upper endoscopy revealed linear erosions in the distal esophagus consistent with LA grade B reflux esophagitis, small hiatal hernia and antral erosive gastritis. No evidence of esophageal varices 2. Colonoscopy revealed small internal hemorrhoids but no evidence of colitis or colorectal neoplasia Recommendations: Findings of this examination were discussed with the patient as well as her family. She was advised to follow with the biopsy results. she'll be started on Protonix 40 mg daily. Diet will be advanced as tolerated.
[2019-10-22] MEDS: SODIUM FERRIC GLUCONAT-SUCROSE 125 MG in SODIUM CHLORIDE 0.9% 100 ML IVPB SCH (14:50)
[2019-10-22] MEDS: PANTOPRAZOLE 40 MG TABLET PO SCH (15:04)
[2019-10-22] MEDS: AZITHROMYCIN 500 MG TAB PO SCH (15:04)
[2019-10-22] MEDS: POTASSIUM CHLORIDE 10 MEQ in WATER FOR INJECTION 1 100ML.BAG IVPB SCH ×5 (17:54→23:30)
[2019-10-22] MEDS: QUEtiapine 50 MG TAB PO SCH (20:39)
[2019-10-23] MEDS: methylPREDNISolone SOD SUCCI 125 MG/2 ML VIAL IV SCH ×2 (00:31→09:14)
[2019-10-23] MEDS: POTASSIUM CHLORIDE 10 MEQ in WATER FOR INJECTION 1 100ML.BAG IVPB SCH (01:20)
[2019-10-23] MEDS ORDERED: POTASSIUM CHLORIDE 10 MEQ in WATER FOR INJECTION 1 100ML.BAG IVPB ONE (02:00)
[2019-10-23 04:58] VITALS: BP 124/66; TEMP 97.6
[2019-10-23] MEDS: IPRATROPIUM-ALBUTEROL 3 ML NEB INHALATION SCH ×2 (08:16→11:27)
[2019-10-23 09:01] LABS: Anisocytosis Moderate; Basophils % (A) 0 %; Eosinophils % (A) 0 %; HCT 26.2 % (34.0-46.0); HGB 7.6 gm/dL (11.4-16.0); Hypochromasia Marked; Lymphocytes # (A) 0.9 k/uL (1.0-4.8); Lymphocytes % (A) 11 %; MCH 22.9 pg (25.0-35.0); MCHC 29.1 g/dL (31.0-37.0); MCV 78.8 fL (80.0-100.0); Mean Platelet Volume 7.6; Microcytosis Moderate; Monocytes # (A) 0.4 k/uL (0-1.0); Monocytes % (A) 5 %; Neutrophils # (A) 6.8 k/uL (1.3-7.7); Neutrophils % (A) 83 %; Poikilocytosis Marked; RBC 3.33 m/uL (3.80-5.40); RDW 21.2 % (11.5-15.5); WBC 8.2 k/uL (3.8-10.6)
[2019-10-23 09:03] LABS: ALT 34 U/L (4-34); AST 67 U/L (14-36); African American GFR (CKD) >90 (>60 ml/min/1.73 sqM); Alkaline Phosphatase 134 U/L (38-126); Anion Gap 7 mmol/L; Blood Urea Nitrogen 10 mg/dL (7-17); Carbon Dioxide 29 mmol/L (22-30); Chloride 102 mmol/L (98-107); Glucose 130 mg/dL (74-99); Non-African American GFR(CKD) >90 (>60 ml/min/1.73 sqM); Potassium 3.5 mmol/L (3.5-5.1); Sodium 138 mmol/L (137-145); Total Bilirubin 4.7 mg/dL (0.2-1.3); Total Protein 5.9 g/dL (6.3-8.2)
[2019-10-23 09:04] LABS: Platelet Count 78 k/uL (150-450)
[2019-10-23] MEDS: LACTULOSE 20 GM/30 ML CUP PO SCH (09:14)
[2019-10-23] MEDS: POTASSIUM CHLORIDE ER 10 MEQ TAB.ER.PRT PO SCH (09:14)
[2019-10-23] MEDS: ATENOLOL 25 MG TAB PO SCH (09:14)
[2019-10-23] MEDS: FUROSEMIDE 10 MG/ML 4 ML VIAL IV SCH (09:14)
[2019-10-23] MEDS: PANTOPRAZOLE 40 MG TABLET PO SCH (09:14)
[2019-10-23] MEDS: BENZONATATE 100 MG CAP PO SCH (09:14)
[2019-10-23] MEDS: RIFAXIMIN 550 MG TABLET PO SCH (09:15)
[2019-10-23] MEDS ORDERED: POTASSIUM CHLORIDE ER 20 MEQ TAB.ER PO STA (09:48)
[2019-10-23] MEDS: SODIUM FERRIC GLUCONAT-SUCROSE 125 MG in SODIUM CHLORIDE 0.9% 100 ML IVPB SCH (09:50)
[2019-10-23] MEDS ORDERED: Magnesium Replacement Protocol 1 EACH MISC MISCELLANE PRN (09:58)
--- NOTE | 2019-10-23 11:16 | P.DS ---
Providers Date of admission: 10/20/19 13:38 Expected date of discharge: 10/23/19 Attending physician: Kevin Gordon Consults: 10/20/19 16:21 Consult Physician Routine Consulting Provider: Telma Archibald Consult Reason/Comments: anemia, hemoglobin 6.2 Do you want consulting provider notified?: Yes 10/20/19 17:16 Consult Physician Routine Consulting Provider: Justin Giles Consult Reason/Comments: severe anemia Do you want consulting provider notified?: Yes [facility]: Final Diagnoses: Alcoholic liver cirrhosis Iron deficiency anemia, status post 2 units packed RBC, status post IV iron infusions Thrombocytopenia secondary to EtOH cirrhosis Hyperbilirubinemia Coagulopathy secondary to liver cirrhosis LA grade B reflux esophagitis Small hiatal hernia and antral erosive gastritis Small internal hemorrhoids COPD exacerbation, tracheobronchitis. Hospital course is a 44-year-old female admitted with severe symptomatic iron deficient anemia, hemoglobin 6 status post transfusion packed RBCs, history of alcohol cirrhosis of the liver and multiple other medical issues. Evaluated by GI, surgery. Underwent EGD and colonoscopy. Upper endoscopy reported telemetry grade B reflux esophagitis, small hiatal hernia, antral erosive gastritis with no evidence of esophageal varices. Colonoscopy revealed small internal hemorrhoids, no evidence of colitis or colorectal neoplasia. Maintained on PPI. Hypokalemic, received supplements. Received IV venofer. Refer to H&P and consult notes for further details. Significant clinical improvement. Cleared by all consults for discharge. Patient is being discharged home in a stable condition with guarded prognosis pending correction of potassium. EXAM: GENERAL: Alert and oriented 3, no acute distress. CARDIOVASCULAR: S1, S2 regular.. No murmur RESPIRATION: Breath sounds diminished in the bases. ABDOMEN: Soft, nontender . No guarding. no masses palpable. Bowel sounds hear d. NERVOUS SYSTEM: No focal deficits. The impression and plan of care has been dictated as directed. : I performed a history and examination of this patient, discussed the same with the dictator. I agree with the dictator's note ,documented as a scribe. Any additional findings or plans will be noted. Patient Condition at Discharge: Stable Plan - Discharge Summary Discharge Rx Participant: No New Discharge Prescriptions: New Rifaximin [Xifaxan] 550 mg PO BID #14 tablet Azithromycin [Zithromax Z-pack] 250 mg PO DIRECTED #6 tab Lactulose [Cephulac] 20 gm PO TID #900 ml guaiFENesin SYRUP 100MG/5ML [Robitussin] 200 mg PO TID PRN ml PRN Reason: Cough predniSONE 10 mg PO DIRECTED #30 tab Ipratropium-Albuterol Nebulize [Duoneb 0.5 mg-3 mg/3 ml Soln] 3 ml INHALATION RT-QID #120 ampul.neb Omeprazole 40 mg PO BID #1 tablet.dr Continue Atenolol [Tenormin] 25 mg PO DAILY ALPRAZolam [Xanax] 0.25 mg PO DAILY PRN PRN Reason: Anxiety QUEtiapine FUMARATE 50 mg PO HS Potassium Chloride ER [K-Dur 10] 10 meq PO BID Furosemide [Lasix] 20 mg PO BID predniSONE 5 mg PO QAM #0 Discharge Medication List ALPRAZolam [Xanax] 0.25 mg PO DAILY PRN 10/20/19 [History] Atenolol [Tenormin] 25 mg PO DAILY 10/20/19 [History] Furosemide [Lasix] 20 mg PO BID 10/20/19 [History] Potassium Chloride ER [K-Dur 10] 10 meq PO BID 10/20/19 [History] QUEtiapine FUMARATE 50 mg PO HS 10/20/19 [History] Azithromycin [Zithromax Z-pack] 250 mg PO DIRECTED #6 tab 10/22/19 [Rx] Ipratropium-Albuterol Nebulize [Duoneb 0.5 mg-3 mg/3 ml Soln] 3 ml INHALATION RT-QID #120 ampul.neb 10/22/19 [Rx] Lactulose [Cephulac] 20 gm PO TID #900 ml 10/22/19 [Rx] Rifaximin [Xifaxan] 550 mg PO BID #14 tablet 10/22/19 [Rx] guaiFENesin SYRUP 100MG/5ML [Robitussin] 200 mg PO TID PRN ml 10/22/19 [Rx] predniSONE 5 mg PO QAM #0 10/22/19 [Rx] predniSONE 10 mg PO DIRECTED #30 tab 10/22/19 [Rx] Omeprazole 40 mg PO BID #1 tablet. 10/23/19 [Rx] Follow up Appointment(s)/Referral(s): Justin Giles MD [STAFF PHYSICIAN] - 4 Weeks (office will call pt) Kevin Gordon MD [Primary Care Provider] - 10/24/19 Telma Archibald MD [STAFF PHYSICIAN] - 11/12/19 3:15 pm Ambulatory/Diagnostic Orders: Complete Blood Count w/diff [LAB.AMB] Time Frame: 3 Days, Location: None Selected Patient Instructions/Handouts: Cirrhosis (DC), COPD (Chronic Obstructive Pulmonary Disease) (DC) Activity/Diet/Wound Care/Special Instructions: unit trust manager verifying Xifaxan Rx coverage. Patient verbalizes she has a nebulizer machine at home. IV iron to be arranged outpatient by PCP No insurance coverage for PPIs, omeprazole [id number] ordered
[2019-10-23 11:37] VITALS: PULSE 76
--- NOTE | 2019-10-23 18:58 | P.PN ---
Subjective Progress Note Date: 10/23/19 Principal diagnosis: COPD exacerbation, iron deficient anemia In follow-up today patient is ready to be discharged. Her hemoglobin is still in the 7 range but, she denies any severe anemia symptoms, denies any bleeding. Objective - Vital Signs Vital signs: Vital Signs Temp 97.6 F 10/23/19 04:56 Pulse 76 10/23/19 11:37 Resp 16 10/23/19 04:56 BP 124/66 10/23/19 04:56 Pulse Ox 97 10/23/19 04:56 Intake & Output 10/22/19 10/23/19 10/23/19 18:59 06:59 18:59 Intake Total 940 Balance 940 Intake: IV 400 Sodium Ferric Gluconat- 100 Sucrose 125 mg In Sodium Chloride 0.9% 100 ml @ 100 mls/hr IVPB DAILY NEHEMIAS Rx#:[id number] Oral 540 Other: # Voids 3 3 - Constitutional General appearance: Present: average body habitus, cooperative, no acute distress - EENT Eyes: Present: anicteric sclerae, EOMI ENT: Present: hearing grossly normal - Respiratory Details: Respirations even and unlabored - Cardiovascular Details: Skin warm and dry - Integumentary Integumentary: Present: normal turgor, pale - Neurologic Neurologic: Present: CNII-XII intact - Musculoskeletal Musculoskeletal: Present: strength equal bilaterally - Psychiatric Psychiatric: Present: A&O x's 3, appropriate affect, intact judgment & insight - Labs CBC & Chem 7: 10/23/19 07:16 10/23/19 08:25 Labs: Abnormal Lab Results - Last 24 Hours (Table) 10/23/19 10/23/19 Range/Units 07:16 08:25 RBC 3.33 L (3.80-5.40) m/uL Hgb 7.6 L (11.4-16.0) gm/dL Hct 26.2 L (34.0-46.0) % MCV 78.8 L (80.0-100.0) fL MCH 22.9 L (25.0-35.0) pg MCHC 29.1 L (31.0-37.0) g/dL RDW 21.2 H (11.5-15.5) % Plt Count 78 L (150-450) k/uL Lymphocytes # 0.9 L (1.0-4.8) k/uL Creatinine 0.49 L (0.52-1.04) mg/dL Glucose 130 H (74-99) mg/dL Calcium 8.0 L (8.4-10.2) mg/dL Total Bilirubin 4.7 H (0.2-1.3) mg/dL AST 67 H (14-36) U/L Alkaline Phosphatase 134 H (38-126) U/L Total Protein 5.9 L (6.3-8.2) g/dL Albumin 3.0 L (3.5-5.0) g/dL Assessment and Plan (1) Anemia Narrative/Plan: Patient admitted with hemoglobin of 6.2, s/p 2 units PRBC. Labs suspicious for hemolysis of one of those units, Hgb is stable as though she had 1 unit. Iron deficiency, pt did receive 2 bags of IV iron. She will follow up in 4 weeks for re-check of iron studies (that is the soonest Iron studies can be rechecked after receiving parenteral iron). Told patient to make sure that at her appointments with other doctors that she has them monitor her CBC. She was also told that she can contact our office for lab draw if she has concerns for progressive anemia. She verbalized understanding. Contact information was given. 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 Platelets are stable Status: Chronic Priority: Medium Code(s): D69.6 - THROMBOCYTOPENIA, UNSPECIFIED SNOMED Code(s): 545938275 (3) Hyperbilirubinemia Narrative/Plan: Known ETOH liver cirrhosis but, patient has maintained abstinence Bilirubin upon admission better than past admissions. Recognized slight rise in bilirubin, likely hemolysis of one of the units of blood, bilirubin is down today Status: Acute Priority: Medium Code(s): E80.6 - OTHER DISORDERS OF BILIRUBIN METABOLISM SNOMED Code(s): 52466945 (4) Coagulopathy Narrative/Plan: Coagulopathy secondary to cirrhosis of liver Status: Acute Priority: Medium Code(s): D68.9 - COAGULATION DEFECT, UNS PECIFIED SNOMED Code(s): 80476535
== END 2019-10-23 12:50 | disposition home or self-care (01) | DRG 812 ==
LOC: 6NMEDSUR 13:38
PROVIDERS: ADMIT Family Medicine; ATTEND Family Medicine
PROC: 30233N1 Transfusion of Nonautologous Red Blood Cells into Peripheral Vein, Percutaneous Approach (ICD-10-PCS; principal; 2019-10-20)
PROC: 0DB98ZX Excision of Duodenum, Via Natural or Artificial Opening Endoscopic, Diagnostic (ICD-10-PCS; 2019-10-22)
PROC: 0DB78ZX Excision of Stomach, Pylorus, Via Natural or Artificial Opening Endoscopic, Diagnostic (ICD-10-PCS; 2019-10-22)
PROC: 0DJD8ZZ Inspection of Lower Intestinal Tract, Via Natural or Artificial Opening Endoscopic (ICD-10-PCS; 2019-10-22)
DX: D50.9 Iron deficiency anemia, unspecified (principal); D68.4 Acquired coagulation factor deficiency; J44.1 Chronic obstructive pulmonary disease with (acute) exacerbation; D69.59 Other secondary thrombocytopenia; E80.7 Disorder of bilirubin metabolism, unspecified; E87.6 Hypokalemia; E88.09 Other disorders of plasma-protein metabolism, not elsewhere classified; K70.30 Alcoholic cirrhosis of liver without ascites; K70.10 Alcoholic hepatitis without ascites; F10.11 Alcohol abuse, in remission; F17.210 Nicotine dependence, cigarettes, uncomplicated; K21.0 Gastro-esophageal reflux disease with esophagitis; K29.60 Other gastritis without bleeding; K44.9 Diaphragmatic hernia without obstruction or gangrene; K64.8 Other hemorrhoids; R60.0 Localized edema; Z79.899 Other long term (current) drug therapy; Z82.49 Family history of ischemic heart disease and other diseases of the circulatory system; Z87.11 Personal history of peptic ulcer disease; Z87.440 Personal history of urinary (tract) infections; Z87.442 Personal history of urinary calculi; Z87.01 Personal history of pneumonia (recurrent); M15.9 Polyosteoarthritis, unspecified; Z98.51 Tubal ligation status; Z79.52 Long term (current) use of systemic steroids
CPT/HCPCS: 43239; 71045; 76705; 80053; 81025; 82140; 82150; 82248; 82607; 82728; 82747; 83010; 83540; 83550; 83605; 83615; 83690; 83735; 83880; 84132; 85025; 85045; 85610; 86850; 86900; 86901; 86920; 87502; 88305; 94640

== ENCOUNTER → 2019-10-24 | Outpatient (CLI) | payer BC ==
[2019-10-24 12:57] LABS: Anisocytosis Moderate; Basophils # (A) 0.1 k/uL (0-0.2); Basophils % (A) 0 %; Eosinophils # (A) 0.1 k/uL (0-0.7); Eosinophils % (A) 0 %; HCT 31.3 % (34.0-46.0); HGB 8.5 gm/dL (11.4-16.0); Hypochromasia Marked; Lymphocytes # (A) 1.8 k/uL (1.0-4.8); Lymphocytes % (A) 14 %; MCH 22.2 pg (25.0-35.0); MCHC 27.1 g/dL (31.0-37.0); MCV 81.6 fL (80.0-100.0); Mean Platelet Volume 7.1; Microcytosis Slight; Monocytes # (A) 0.9 k/uL (0-1.0); Monocytes % (A) 7 %; Neutrophils # (A) 9.9 k/uL (1.3-7.7); Neutrophils % (A) 77 %; Platelet Count 107 k/uL (150-450); Poikilocytosis Moderate; RBC 3.84 m/uL (3.80-5.40); RDW 21.8 % (11.5-15.5); WBC 12.9 k/uL (3.8-10.6)
[2019-10-24 18:58] LABS: % Iron Saturation 46.7 (12.00-45.00); African American GFR (CKD) 103.9 (60.0-200.0); Albumin 3.8 g/dL (3.80-4.90); Albumin/Globulin Ratio 1.73 (1.60-3.17); Anion Gap 14.4 mmol/L (4.00-12.00); BUN/Creat Ratio 13.75 Ratio (12.00-20.00); Calcium 8.7 mg/dL (8.7-10.3); Carbon Dioxide 27.6 mmol/L (21.6-31.8); Globulin 2.2 g/dL (1.6-3.3); Non-African American GFR(CKD) 89.7 (60.0-200.0); Potassium 3.1 mmol/L (3.5-5.5); Total Bilirubin 7.6 mg/dL (0.2-1.2)
== END | disposition home or self-care (01) ==
LOC: LABWHC1 10:03
PROVIDERS: ATTEND Family Medicine
DX: B89 Unspecified parasitic disease (principal); Z79.899 Other long term (current) drug therapy
CPT/HCPCS: 36415; 80053; 83540; 83550; 85025

== ENCOUNTER → 2019-10-31 | Outpatient (CLI) | payer BC ==
[2019-10-31 12:22] LABS: Anisocytosis Marked; Basophils % (A) 0 %; Eosinophils # (A) 0.2 k/uL (0-0.7); Eosinophils % (A) 2 %; HCT 31.9 % (34.0-46.0); Hypochromasia Marked; Lymphocytes # (A) 1.1 k/uL (1.0-4.8); Lymphocytes % (A) 13 %; MCH 23.6 pg (25.0-35.0); MCHC 28.3 g/dL (31.0-37.0); MCV 83.5 fL (80.0-100.0); Mean Platelet Volume 6.8; Microcytosis Moderate; Monocytes # (A) 0.5 k/uL (0-1.0); Monocytes % (A) 6 %; Neutrophils # (A) 6.5 k/uL (1.3-7.7); Neutrophils % (A) 78 %; Poikilocytosis Slight; RBC 3.82 m/uL (3.80-5.40); WBC 8.3 k/uL (3.8-10.6)
[2019-10-31 12:33] LABS: RDW 25.4 % (11.5-15.5)
[2019-10-31 13:08] LABS: Mixed Population RBC Present
[2019-10-31 13:09] LABS: Target Cells Present
[2019-10-31 13:10] LABS: Polychromasia Present; RBC Fragments Present
[2019-10-31 13:11] LABS: Platelet Count 78 k/uL (150-450)
[2019-10-31 17:32] LABS: African American GFR (CKD) 128.5 (60.0-200.0); Albumin 3.5 g/dL (3.80-4.90); Albumin/Globulin Ratio 1.84 (1.60-3.17); Anion Gap 6.9 mmol/L (4.00-12.00); Calcium 8.5 mg/dL (8.7-10.3); Carbon Dioxide 30.1 mmol/L (21.6-31.8); Globulin 1.9 g/dL (1.6-3.3); Non-African American GFR(CKD) 110.9 (60.0-200.0); Potassium 3.3 mmol/L (3.5-5.5); Total Bilirubin 6.3 mg/dL (0.2-1.2); Total Protein 5.4 g/dL (6.2-8.2)
== END | disposition home or self-care (01) ==
LOC: LABWHC1 11:00
PROVIDERS: ATTEND Family Medicine
DX: B89 Unspecified parasitic disease (principal); D64.9 Anemia, unspecified; Z79.899 Other long term (current) drug therapy
CPT/HCPCS: 36415; 80053; 82140; 83540; 85025

== ENCOUNTER → 2019-11-20 | Outpatient (CLI) | payer BC ==
[2019-11-20 10:08] LABS: Anisocytosis Marked; HGB 10.3 gm/dL (11.4-16.0); Hypochromasia Marked; MCH 26.8 pg (25.0-35.0); MCHC 29.4 g/dL (31.0-37.0); Macrocytosis Slight; Mean Platelet Volume 6.5; Microcytosis Slight; RBC 3.84 m/uL (3.80-5.40); RDW 24.9 % (11.5-15.5); WBC 4.4 k/uL (3.8-10.6)
[2019-11-20 10:13] LABS: MCV 91.1 fL (80.0-100.0); Platelet Count 79 k/uL (150-450)
[2019-11-20 16:43] LABS: Albumin 3.6 g/dL (3.80-4.90); Albumin/Globulin Ratio 1.89 (1.60-3.17); Bilirubin, Conjugated 3.3 mg/dL (0.20-0.40); Bilirubin,Unconjugated 2.3 mg/dL; Globulin 1.9 g/dL (1.6-3.3); Total Bilirubin 5.6 mg/dL (0.2-1.2); Total Protein 5.5 g/dL (6.2-8.2)
== END | disposition home or self-care (01) ==
LOC: LABWHC1 08:49
PROVIDERS: ATTEND Family Medicine
DX: I10 Essential (primary) hypertension (principal); Z79.899 Other long term (current) drug therapy
CPT/HCPCS: 36415; 80076; 83880; 85027

== ENCOUNTER → 2019-11-21 | Outpatient (CLI) | payer BC ==
--- NOTE | 2019-11-21 12:00 | ECHOF ---
Referral Reason:R01.1 cardiac murmur MEASUREMENTS -------- HEIGHT: 162.6 cm WEIGHT: 78.0 kg BP: RVIDd: 3.0 cm (< 3.3) IVSd: 1.1 cm (0.6 - 1.1) LVIDd: 4.6 cm (3.9 - 5.3) LVPWd: 1.4 cm (0.6 - 1.1) IVSs: 1.6 cm LVIDs: 2.5 cm LVPWs: 1.9 cm LAESV Index (A-L): 26.21 ml/m Ao Diam: 2.8 cm (2.0 - 3.7) AV Cusp: 1.7 cm (1.5 - 2.6) LA Diam: 3.9 cm (2.7 - 3.8) MV EXCURSION: 23.948 mm (> 18.000) MV EF SLOPE: 107 mm/s (70 - 150) EPSS: 0.3 cm MV E Jose: 1.09 m/s MV DecT: 186 ms MV A Jose: 0.71 m/s MV E/A Ratio: 1.53 AV maxP.57 mmHg AV meanP.80 mmHg RAP: 5.00 mmHg RVSP: 17.11 mmHg TAPSE: 34.01 mm FINDINGS -------- Sinus rhythm. This was a technically good study. The left ventricular size is normal. Left ventricular wall thickness is normal. Overall left vent ricular systolic function is normal with, an EF between 55 - 60 %. The diastolic filling pattern is normal for the age of the patient 10.50. The right ventricle is normal in size. The right ventricular wall thickness is normal measuring < 5 mm. The right ventricular systolic function is normal. The left atrial size is normal. Normal LA size by volume 22+/-6 ml/m2. The right atrial size is normal. The aortic valve was not well visualized. Peak/mean gradient across the Aortic Valve is 25.57mmHg / 15.80mmHg. The mitral valve is normal. There is trace mitral regurgitation. The tricuspid valve appears structurally normal. Trace tricuspid regurgitation present. Right janeth tricular systolic pressure is normal at < 35 mmHg. There is no pulmonic regurgitation present. The aortic root size is normal. Normal inferior vena cava with normal inspiratory collapse consistent with estimated right atrial pre ssure of 5 mmHg. There is no pericardial effusion. CONCLUSIONS -------- 1. Sinus rhythm. 2. This was a technically good study. 3. The left ventricular size is normal. 4. Left ventricular wall thickness is normal. 5. Overall left ventricular systolic function is normal with, an EF between 55 - 60 %. 6. The diastolic filling pattern is normal for the age of the patient 10.50 7. The right ventricle is normal in size. 8. The right ventricular wall thickness is normal measuring < 5mm. 9. The right ventricular systolic function is normal. 10. The left atrial size is normal. 11. Normal LA size by volume 22+/-6 ml/m2. 12. The right atrial size is normal. 13. The aortic valve was not well visualized. 14. Peak/mean gradient across the Aortic Valve is 25.57mmHg / 15.80mmHg. 15. The mitral valve is normal. 16. There is trace mitral regurgitation. 17. The tricuspid valve appears structurally normal. 18. Trace tricuspid regurgitation present. 19. Right ventricular systolic pressure is normal at < 35 mmHg. 20. There is no pulmonic regurgitation present. 21. The aortic root size is normal. 22. Normal inferior vena cava with normal inspiratory collapse consistent with estimated right atrial pressure of 5 mmHg. 23. There is no pericardial effusion. MACHINE CLEANER: Catalina Watson RDCS
== END | disposition home or self-care (01) ==
LOC: RADECHMAIN 10:44
PROVIDERS: ATTEND Family Medicine
DX: R01.1 Cardiac murmur, unspecified (principal)
CPT/HCPCS: 93306

== ENCOUNTER → 2019-12-16 | Outpatient (CLI) | payer BC ==
[2019-12-17 11:53] LABS: Hemoglobin A1C 3.9
== END | disposition home or self-care (01) ==
LOC: LABWHC1 12:21
PROVIDERS: ATTEND Family Medicine
DX: I10 Essential (primary) hypertension (principal); Z79.899 Other long term (current) drug therapy
CPT/HCPCS: 36415; 83036; 84681

== ENCOUNTER → 2020-01-19 | Outpatient (CLI) | payer BC ==
[2020-01-19 11:09] LABS: ALT 68 U/L (4-34); AST 86 U/L (14-36); African American GFR (CKD) >90 (>60 ml/min/1.73 sqM); Albumin 3.7 g/dL (3.5-5.0); Alkaline Phosphatase 256 U/L (38-126); Anion Gap 9 mmol/L; Blood Urea Nitrogen 13 mg/dL (7-17); Calcium 8.8 mg/dL (8.4-10.2); Carbon Dioxide 22 mmol/L (22-30); Chloride 102 mmol/L (98-107); Glucose 118 mg/dL (74-99); Non-African American GFR(CKD) >90 (>60 ml/min/1.73 sqM); Sodium 133 mmol/L (137-145); Total Bilirubin 3.3 mg/dL (0.2-1.3); Total Protein 6.5 g/dL (6.3-8.2)
--- NOTE | 2020-01-19 11:16 | US ---
EXAMINATION TYPE: US thyroid st tissue head/neck DATE OF EXAM: 01/19/2020 COMPARISON: NONE CLINICAL HISTORY: R22.10 Neck mass. Right neck pain x 2 months Right neck submandibular at patient's area of concern: no abnormality seen at this time Left neck for comparison: no abnormality seen at this time IMPRESSION: No distinct abnormality appreciated. If symptoms persist consider contrast-enhanced CT o f the neck.
[2020-01-19 22:12] LABS: Hemoglobin A1C 4.4 % (4.0-6.0)
== END | disposition home or self-care (01) ==
LOC: RADUSWWP 10:44
PROVIDERS: ATTEND Family Medicine
DX: R22.1 Localized swelling, mass and lump, neck (principal); I10 Essential (primary) hypertension; B89 Unspecified parasitic disease; Z79.899 Other long term (current) drug therapy
CPT/HCPCS: 36415; 76536; 80053; 82140; 83036; 84443

== ENCOUNTER → 2020-03-08 | Outpatient (CLI) | payer BC ==
[2020-03-08 14:37] LABS: INR 1.3 (<1.2); Prothrombin Time 12.8 sec (9.0-12.0)
[2020-03-08 14:44] LABS: Anisocytosis Slight; Basophils # (A) 0.1 k/uL (0-0.2); Basophils % (A) 1 %; Eosinophils # (A) 0.5 k/uL (0-0.7); Eosinophils % (A) 5 %; HCT 40.6 % (34.0-46.0); HGB 13.3 gm/dL (11.4-16.0); Lymphocytes # (A) 2.6 k/uL (1.0-4.8); Lymphocytes % (A) 27 %; MCH 31.8 pg (25.0-35.0); MCHC 32.7 g/dL (31.0-37.0); MCV 97.3 fL (80.0-100.0); Macrocytosis Slight; Mean Platelet Volume 9.6; Monocytes # (A) 0.7 k/uL (0-1.0); Monocytes % (A) 7 %; Neutrophils # (A) 5.7 k/uL (1.3-7.7); Neutrophils % (A) 58 %; RBC 4.18 m/uL (3.80-5.40); RDW 16.6 % (11.5-15.5); WBC 9.8 k/uL (3.8-10.6)
[2020-03-08 14:45] LABS: Platelet Count 65 k/uL (150-450)
[2020-03-08 21:38] LABS: Albumin 3.8 g/dL (3.80-4.90); Albumin/Globulin Ratio 2.11 (1.60-3.17); Bilirubin, Conjugated 1.7 mg/dL (0.20-0.40); Bilirubin,Unconjugated 2.7 mg/dL; Globulin 1.8 g/dL (1.6-3.3); Total Bilirubin 4.4 mg/dL (0.2-1.2); Total Protein 5.6 g/dL (6.2-8.2)
== END | disposition home or self-care (01) ==
LOC: LABWHC1 13:46
PROVIDERS: ATTEND Internal Medicine Gastroenterology
DX: F10.988 Alcohol use, unspecified with other alcohol-induced disorder (principal); I10 Essential (primary) hypertension; B89 Unspecified parasitic disease
CPT/HCPCS: 36415; 80076; 85025; 85610

== ENCOUNTER → 2020-07-05 | Outpatient (CLI) | payer OTHER ==
[2020-07-05 12:16] LABS: Basophils # (A) 0.1 k/uL (0-0.2); Basophils % (A) 1 %; Eosinophils # (A) 0.5 k/uL (0-0.7); Eosinophils % (A) 5 %; HCT 40.4 % (34.0-46.0); HGB 12.8 gm/dL (11.4-16.0); Lymphocytes # (A) 3.5 k/uL (1.0-4.8); Lymphocytes % (A) 34 %; MCH 30.9 pg (25.0-35.0); MCHC 31.7 g/dL (31.0-37.0); MCV 97.7 fL (80.0-100.0); Monocytes # (A) 0.6 k/uL (0-1.0); Monocytes % (A) 6 %; Neutrophils # (A) 5.3 k/uL (1.3-7.7); Neutrophils % (A) 52 %; RBC 4.13 m/uL (3.80-5.40); RDW 14.5 % (11.5-15.5); WBC 10.3 k/uL (3.8-10.6)
[2020-07-05 12:18] LABS: ALT 46 U/L (4-34); AST 61 U/L (14-36); African American GFR (CKD) >90 (>60 ml/min/1.73 sqM); Albumin 3.2 g/dL (3.5-5.0); Albumin/Globulin Ratio 1.5; Alkaline Phosphatase 204 U/L (38-126); Anion Gap 2 mmol/L; Blood Urea Nitrogen 11 mg/dL (7-17); Calcium 8.6 mg/dL (8.4-10.2); Carbon Dioxide 28 mmol/L (22-30); Chloride 105 mmol/L (98-107); Globulin 2.2 g/dL; Glucose 89 mg/dL (74-99); Non-African American GFR(CKD) >90 (>60 ml/min/1.73 sqM); Potassium 4.1 mmol/L (3.5-5.1); Sodium 135 mmol/L (137-145); Total Bilirubin 3.7 mg/dL (0.2-1.3); Total Protein 5.4 g/dL (6.3-8.2)
[2020-07-05 13:11] LABS: Platelet Count 70 k/uL (150-450)
[2020-07-06 06:34] LABS: Iron 198 ug/dL (50-170)
== END | disposition home or self-care (01) ==
LOC: LABWHC1 10:43
PROVIDERS: ATTEND Family Medicine
DX: I10 Essential (primary) hypertension (principal); Z79.899 Other long term (current) drug therapy
CPT/HCPCS: 36415; 80053; 82140; 83540; 85025

== ENCOUNTER → 2020-08-20 | Outpatient (CLI) | payer OTHER ==
[2020-08-20 12:41] LABS: ALT 46 U/L (4-34); AST 63 U/L (14-36); African American GFR (CKD) >90 (>60 ml/min/1.73 sqM); Albumin 3.4 g/dL (3.5-5.0); Albumin/Globulin Ratio 1.5; Alkaline Phosphatase 176 U/L (38-126); Anion Gap 5 mmol/L; Bilirubin,Unconjugated 2.7 mg/dL (0.0-1.1); Blood Urea Nitrogen 9 mg/dL (7-17); Carbon Dioxide 28 mmol/L (22-30); Chloride 104 mmol/L (98-107); Globulin 2.3 g/dL; Non-African American GFR(CKD) >90 (>60 ml/min/1.73 sqM); Potassium 3.9 mmol/L (3.5-5.1); Sodium 137 mmol/L (137-145); Total Bilirubin 3.8 mg/dL (0.2-1.3); Total Protein 5.7 g/dL (6.3-8.2)
== END | disposition home or self-care (01) ==
LOC: LABWHC1 11:28
PROVIDERS: ATTEND Family Medicine
DX: I10 Essential (primary) hypertension (principal); B89 Unspecified parasitic disease
CPT/HCPCS: 36415; 80051; 80076; 82140; 82565; 84520

== ENCOUNTER 2021-05-09 09:24 | Emergency (ER) | payer OTHER ==
[2021-05-09 09:36] VITALS: RESP 18
[2021-05-09] MEDS ORDERED: KETOROLAC 15 MG/ML 1 ML VIAL IM STA (10:34)
--- NOTE | 2021-05-09 10:47 | XR ---
EXAMINATION TYPE: XR Hip LT and AP Pelvis DATE OF EXAM: 05/09/2021 COMPARISON: None HISTORY: Fall, pain TECHNIQUE: Left hip is examined in 2 views supplemented with an AP pelvis FINDINGS: Femoral head articulates with the acetabulum. Joint space narrowing is present. No acute fr actures are evident. Sacroiliac joints and symphysis pubis are normal. Normal bowel gas is present. IMPRESSION: 1. Mild narrowing of the left hip joint space. 2. No acute osseous abnormality.
--- NOTE | 2021-05-09 10:49 | ED ---
Lower Extremity Injury HPI - General Chief Complaint: Extremity Injury, Lower Stated Complaint: Hip pain Time Seen by Provider: 05/09/21 09:40 Source: patient Mode of arrival: ambulatory Limitations: no limitations - History of Present Illness Initial Comments: Patient is a 45-year-old female presenting to the emergency Department with complaints of ongoing left hip pain over the past month. She states she's had 2 slips and falls about one month ago, 2 days apart. She states the first it was just a slip on grass and then 2 days later had a slip and fall where she sort of did the splits, with her left leg behind her. She has been having left hip pain since. She has seen her chiropractor, has been on 2 rounds of steroids as well as a muscle relaxer without much improvement. She is supposed to start physical therapy tomorrow but over the last 2 days is having an increase in pain. She is getting to the point where she can only be on her feet for a couple hours. 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 She denies any further falls from last month. She denies any previous injuries or surgeries to her left lower extremity. She does have history of some mild water retention, takes a water pill but states she is having some swelling of her left lower extremity. She denies history of blood clots. She denies any chest pain or shortness of breath, no cough, no fevers. She has no further complaints. - Related Data Home Medications Medication Instructions Recorded Confirmed ALPRAZolam [Xanax] 0.25 mg PO DAILY PRN 10/20/19 10/12/20 Furosemide [Lasix] 40 mg PO BID 10/20/19 10/12/20 Potassium Chloride ER [K-Dur 10] 10 meq PO BID 10/20/19 10/12/20 QUEtiapine FUMARATE 50 mg PO HS 10/20/19 10/12/20 atenoloL [Tenormin] 25 mg PO BID 10/20/19 10/12/20 Spironolactone-Hctz 25-25Mg 1 tab PO BID 09/21/20 10/12/20 [Aldactazide 25-25 MG] Previous Rx's Medication Instructions Recorded Ipratropium-Albuterol Nebulize 3 ml INHALATION RT-QID #120 10/22/19 [Duoneb 0.5 mg-3 mg/3 ml Soln] ampul.neb Lactulose [Cephulac] 20 gm PO TID #900 ml 10/22/19 predniSONE 5 mg PO QAM #0 10/22/19 Allergies Allergy/AdvReac Type Severity Reaction Status Date / Time No Known Allergies Allergy Verified 05/09/21 09:32 Review of Systems ROS Statement: Those systems with pertinent positive or pertinent negative responses have been documented in the HPI. ROS Other: All systems not noted in ROS Statement are negative. Past Medical History Past Medical History: Asthma, Blood Disorder, Liver Disease, Osteoarthritis (OA), Pneumonia, Renal Disease Additional Past Medical History / Comment(s): ETOH abuse with past withdrawals/DTs-pt has not drank since May 2019, cirrhosis, hyperbi lirubinemia, hypercoagulopathy, thrombocytopenia, hyperammonemia, occasional bilateral leg edema and currently has edema, arthritis in multiple joints, R hip "pops" out at times, gastric ulcer, UTIs, kidney stones which she passed, bronchitis, pneumonia as a child History of Any Multi-Drug Resistant Organisms: None Reported Past Surgical History: Tubal Ligation Additional Past Surgical History / Comment(s): EGD, liver biopsy Past Anesthesia/Blood Transfusion Reactions: No Reported Reaction Past Psychological History: Depression Smoking Status: Former smoker Past Alcohol Use History: None Reported Past Drug Use History: Marijuana - Past Family History Father History Unknown: Yes Mother Family Medical History: Hypertension General Exam - General Exam Comments Initial Comments: GENERAL: Patient is well-developed and well-nourished. Patient is nontoxic and in mild distress. HEAD: Atraumatic, normocephalic. EYES: Pupils equal round and reactive to light, extraocular movements intact, sclera anicteric, conjunctiva are normal. Eyelids were unremarkable. NECK: Normal range of motion, supple without lymphadenopathy or JVD. LUNGS: Unlabored respirations. Breath sounds clear to auscultation bilaterally and equal. No wheezes rales or rhonchi. HEART: Regular rate and rhythm without murmurs, rubs or gallops. ABDOMEN: Soft, nontender, normoactive bowel sounds. No guarding, no rebound. No masses appreciated. : Deferred MUSCULOSKELETAL: Patient has pain with palpation of the left anterior and lateral hip, she is unable to actively flex her hip in a seated position. Pain with external and internal range of motion. She has neurovascular intact, she's got some mild to moderate lower extremity swelling of the left when compared to the right. She has neurovascular intact. She has some mild bruising noted to the left anterior lower leg, she feels like this could be from her crutches but is unsure. No erythema. No clubbing or cyanosis. NEUROLOGICAL: Patient is alert and oriented x 3. Motor and sensory are also intact. Cranial nerves II through XII grossly intact. Symmetrical smile. Normal speech. PSYCH: Normal mood, normal affect. SKIN: Warm, Dry, normal turgor, no rashes or lesions noted. Limitations: no limitations Course Vital Signs 05/09/21 05/09/21 09:32 12:37 Temperature 98.3 F 97.2 F L Pulse Rate 78 61 Respiratory 18 18 Rate Blood Pressure 139/73 126/69 O2 Sat by Pulse 97 99 Oximetry Medical Decision Making - Medical Decision Making Patient is a 45-year-old female here with ongoing left hip pain over the past month. She had 2 slips and falls about a month ago, 2 days apart and has been having issues since. She's had no imaging. She is supposed to start physical therapy tomorrow, has had 2 rounds of steroids. She does have some mild to moderate swelling noted of her left lower leg compared to the right, she is neurovascular intac. X-rays today of the left hip and pelvic show no acute fractures dislocations. I did do an ultrasound of the left lower extremity as well, negative for DVT. I discussed these findings with the patient. I recommended following up with her physician as well as possible orthopedics. I will give her referral. She is in agreement with this plan and care and stable for discharge. Case discussed with Dr. Spann Disposition Clinical Impression: Left hip pain Disposition: HOME SELF-CARE Condition: Stable Instructions (If sedation given, give patient instructions): Hip Pain (ED) Additional Instructions: Please return to the Emergency Department if symptoms worsen or any other concerns. Continue to alternate between Tylenol and Motrin for discomfort. Recommend following up with orthopedics if symptoms persist. Is patient prescribed a controlled substance at d/c from ED?: No Referrals: Kevin Gordon MD [Primary Care Provider] - 1-2 days Carroll Krause MD [STAFF PHYSICIAN] - 1-2 days Time of Disposition: 12:27
--- NOTE | 2021-05-09 11:41 | US ---
EXAMINATION TYPE: US venous doppler duplex LE LT DATE OF EXAM: 05/09/2021 11:03 AM COMPARISON: NONE CLINICAL HISTORY: swelling, pain. SIDE PERFORMED: Left TECHNIQUE: The lower extremity deep venous system is examined utilizing real time linear array sonog vika with graded compression, doppler sonography and color-flow sonography. VESSELS IMAGED: Common Femoral Vein Deep Femoral Vein Greater Saphenous Vein * Femoral Vein Popliteal Vein Small Saphenous Vein * Proximal Calf Veins (* superficial vessels) Left Leg: Appears negative for DVT IMPRESSION: 1. Left lower extremity ultrasound negative for deep venous thrombosis
[2021-05-09] MEDS ORDERED: traMADol 50 MG STARTER PACK 3 TAB BTL PO STA (12:23)
[2021-05-09 12:41] VITALS: BP 126/69; PULSE 61; TEMP 97.2
== END 2021-05-09 12:37 | disposition home or self-care (01) ==
LOC: EC 09:24
DX: M25.552 Pain in left hip (principal); S80.12XA Contusion of left lower leg, initial encounter; J45.909 Unspecified asthma, uncomplicated; M19.90 Unspecified osteoarthritis, unspecified site; F32.9 Major depressive disorder, single episode, unspecified; F12.90 Cannabis use, unspecified, uncomplicated; Z79.51 Long term (current) use of inhaled steroids; Z79.52 Long term (current) use of systemic steroids; Z79.899 Other long term (current) drug therapy; Z87.891 Personal history of nicotine dependence; Z82.49 Family history of ischemic heart disease and other diseases of the circulatory system; W01.0XXA Fall on same level from slipping, tripping and stumbling without subsequent striking against object, initial encounter
CPT/HCPCS: 73502; 93971; 99284; 96372; J1885